=== PATIENT | male | born 1950 | race Two or more races ===

== ENCOUNTER → 2017-03-20 | Outpatient (CLI) | payer SELFPAY ==
--- NOTE | 2017-03-20 13:17 | RAD ---
Indication: Solitary pulmonary nodule. Technique: PET/CT utilized 12.97 millicuries F-18 FDG IV. Patient's blood glucose level at the time of exam was [address] was obtained for attenuation correction and correlative purposes, is not intended for interpretation separate from the PET imaging. There are no prior studies available at this institution. One or more of the following individualized dose reduction techniques were utilized for this examination: 1. Automated exposure control 2. Adjustment of the mA and/or kV according to patient size 3. Use of iterative reconstruction technique Findings: Head and neck: There is no radiotracer accumulation in a pattern to suggest metastatic disease. Chest: The mass posterior to the right hilum is PET avid with SUV max 19.8. No pattern avid adenopathy within the lainey or mediastinum is apparent. Abdomen/pelvis: There is no radiotracer accumulation in a pattern to suggest metastatic disease. Musculoskeletal: There is no radiotracer accumulation in a pattern to suggest metastatic disease. Subtle nonspecific uptake is noted in the right chest wall posteriorly with SUV max of only 1.6, barely above background. Non-PET findings: There are some mildly prominent right paratracheal lymph nodes that are all subcentimeter short axis. These were not PET avid. There is atheromatous disease in the aorta. Aorta is aneurysmal at the level of the diaphragm, 4.6 cm AP. There are diverticula in the colon. Prostate is enlarged. There are degenerative changes in the spine. There are coronary artery calcifications. Impression: Right lung mass posterior to the hilum is PET avid and most compatible with primary bronchogenic carcinoma. There is no evidence of hilar or mediastinal PET avid adenopathy. There is no evidence of distant metastatic disease.
== END | disposition home or self-care (01) ==
LOC: PETSC 10:06
PROVIDERS: ATTEND Internal Medicine Pulmonary Disease
DX: N40.0 Benign prostatic hyperplasia without lower urinary tract symptoms (principal); K57.30 Diverticulosis of large intestine without perforation or abscess without bleeding; I72.8 Aneurysm of other specified arteries; I70.0 Atherosclerosis of aorta; E78.2 Mixed hyperlipidemia; E11.9 Type 2 diabetes mellitus without complications; R91.1 Solitary pulmonary nodule
CPT/HCPCS: 78815; A9552

== ENCOUNTER → 2017-07-23 | Outpatient (CLI) | payer SELFPAY | END | disposition home or self-care (01) | LOC: CT 09:21 | DX: C34.31 Malignant neoplasm of lower lobe, right bronchus or lung (principal); E11.9 Type 2 diabetes mellitus without complications; E78.2 Mixed hyperlipidemia | CPT/HCPCS: 71250 ==

== ENCOUNTER → 2017-10-21 | Outpatient (CLI) | payer MEDICAID, MEDICARE ==
[2017-10-21] MEDS: REGADENOSON 0.4 MG/5 ML DISP.SYRIN. IV (09:00)
== END | disposition home or self-care (01) ==
LOC: ECHO 08:07
DX: R06.09 Other forms of dyspnea (principal); J43.9 Emphysema, unspecified; I10 Essential (primary) hypertension; E78.5 Hyperlipidemia, unspecified; E11.9 Type 2 diabetes mellitus without complications; Z87.891 Personal history of nicotine dependence
CPT/HCPCS: 78452; 93017; 93306; 96374; 96375; 96376; A9500; J2785

== ENCOUNTER → 2017-11-27 | Outpatient (CLI) | payer MEDICAID ==
[2017-04-10 15:21] VITALS: BP 106/74
[~2017-11-27] MED LIST: BUDE10.2 IH; PROAIR HFA8.5 GM INH
--- NOTE | 2017-11-27 09:40 | RAD ---
CT of the chest without contrast, 11/27/2017: HISTORY: Follow-up lung cancer Noncontrast scans were obtained and compared to a study from 07/23/2017. There is a small residual density in the medial aspect of the right lower lobe along the posterior aspect of the right hilum which appears unchanged. There are adjacent residual streaky opacities similar similar to on the previous study. Mild peripheral infiltrates in the posterior aspect of the right lower lobe have increased slightly. Emphysematous changes are present in the lungs with scattered pleural/parenchymal scars. A tiny subpleural nodule in the lateral aspect of the right middle lobe is unchanged. Several small mediastinal lymph nodes appear unchanged. The largest of these measure approximately 8 mm in short axis dimension and are not considered to be pathologically enlarged. Moderate scattered coronary artery calcifications are present. There is no evidence of pleural fluid. There is aneurysmal dilatation of the lower thoracic aorta which measures 4.8 x 4.5 cm just superior to the level the diaphragmatic hiatus. This is unchanged since the 07/23/2017 exam. Mild scattered degenerative changes are present in the spine. There is mild unchanged loss of height of a midthoracic vertebral body. IMPRESSION: 1. Stable small residual density along the posterior aspect of the right hilum at the level of the patient's treated lung malignancy. 2. Peripheral infiltrates posteriorly in the right lower lobe have progressed slightly and may represent inflammation or post radiation change. 3. Stable small mediastinal lymph nodes without pathologic enlargement. 4. Emphysema with pleural/parenchymal scarring. 5. Moderate coronary artery calcifications. 6. Stable lower thoracic aortic aneurysm. PQRS Compliance Statement: One or more of the following individualized dose reduction techniques were utilized for this examination: 1. Automated exposure control 2. Adjustment of the mA and/or kV according to patient size 3. Use of iterative reconstruction technique Electronically signed by: Sudhir Velazquez MD (11/27/2017 9:37 AM) [facility]
== END | disposition home or self-care (01) ==
LOC: CT 09:10
PROVIDERS: ATTEND Radiology Radiation Oncology
DX: J43.9 Emphysema, unspecified (principal); I25.10 Atherosclerotic heart disease of native coronary artery without angina pectoris; C34.31 Malignant neoplasm of lower lobe, right bronchus or lung; E78.2 Mixed hyperlipidemia; I10 Essential (primary) hypertension; E11.9 Type 2 diabetes mellitus without complications; Z87.891 Personal history of nicotine dependence
CPT/HCPCS: 71250

== ENCOUNTER → 2018-03-05 | Outpatient (CLI) | payer MEDICAID ==
[2017-04-10 15:21] VITALS: BP 106/74
--- NOTE | 2018-03-05 09:07 | RAD ---
CT of the chest without contrast, 03/05/2018: HISTORY: Follow-up lung cancer Noncontrast scans were obtained as requested and compared to a study from 11/27/2017. Several small mediastinal lymph nodes appear unchanged, measuring just less than 1 cm in short axis dimension. Moderate coronary artery calcifications are again noted. There is unchanged aneurysmal dilatation of the lower thoracic aorta near the diaphragmatic hiatus. The aorta measures approximately 4.8 cm in AP dimension at that level. Streaky parenchymal densities and peribronchovascular thickening along the posterior aspect of the right hilum as increased slightly. Peripheral infiltrate posteriorly in the right lower lobe has also increased. The previously treated lung malignancy cannot be clearly defined within these opacities. Emphysematous changes are present in the lungs. There are scattered bilateral pleural-parenchymal scars. A tiny subpleural nodule in the lateral aspect of the right middle lobe is unchanged. No new left lung abnormality is seen. There is no evidence of pleural fluid. IMPRESSION: 1. Increasing peribronchovascular densities and infiltrate along the posterior aspect of the right hilum in the right lower lobe may represent post radiation change. A component of residual underlying neoplasm cannot be excluded. 2. Stable small mediastinal lymph nodes without pathologic enlargement. 3. Stable lower thoracic aortic aneurysm. PQRS Compliance Statement: One or more of the following individualized dose reduction techniques were utilized for this examination: 1. Automated exposure control 2. Adjustment of the mA and/or kV according to patient size 3. Use of iterative reconstruction technique Electronically signed by: Sudhir Velazquez MD (03/05/2018 9:04 AM) [facility]
== END | disposition home or self-care (01) ==
LOC: CT 08:34
PROVIDERS: ATTEND Radiology Radiation Oncology
DX: C34.31 Malignant neoplasm of lower lobe, right bronchus or lung (principal); I71.2 Thoracic aortic aneurysm, without rupture; J43.9 Emphysema, unspecified
CPT/HCPCS: 71250

== ENCOUNTER 2018-04-01 12:21 | Emergency (ER) | payer MEDICAID ==
[~2018-04-01] VITALS: Ht 175.3 cm; Wt 74.8 kg
[~2018-04-01 12:21] MED LIST changes: +ALBU2.5V8 INH; -PROAIR HFA8.5 GM INH
[2018-04-01 12:50] LABS: BASO % 0 % (0-3); EOS % 0 % (0-3); HEMATOCRIT 48.7 % (39.0-53.0); HEMOGLOBIN 16.6 g/dL (13.0-17.5); LYMPH # 1.1 x10^3/uL (1.0-4.8); LYMPH % 15 % (24-48); MEAN CORPUSCULAR HEMOGLOBIN 30 pg (25-35); MEAN CORPUSCULAR HGB CONC 34 g/dL (31-37); MEAN CORPUSCULAR VOLUME 88 fL (79-100); MONO # 0.2 x10^3/uL (0.0-1.1); MONO % 2 % (0-9); NEUT # 6.1 x10^3uL (1.8-7.7); NEUT % 83 % (31-73); PLATELET COUNT 270 x10^3/uL (140-400); RED BLOOD COUNT 5.55 x10^6/uL (4.30-5.70); RED CELL DISTRIBUTION WIDTH 13.3 % (11.5-14.5); WHITE BLOOD COUNT 7.4 x10^3/uL (4.0-11.0)
--- NOTE | 2018-04-01 12:58 | RAD ---
CHEST PA LATERAL History: SHORTNESS OF AIR X 5-6 DAYS
RADIATION TREATMENT FOR RIGHT SIDED LUNG CANCER 8 MONTHS AGO. Comparison: April 09, 2017 image but no report available. Comparison with CT chest 03/05/2018. The cardiac silhouette is not enlarged. There is some abnormal opacity in the right lung, corresponds with the mass or consolidation seen on the CT scan. Mild right side pleural thickening. No large effusion. There does appear to be air trapping compatible with emphysema. Mild anterior wedging of mid thoracic vertebrae appears similar to the prior CT. There is some mild density in the overlying both lower lungs, thought to be due to breast tissue. No evidence of pneumothorax. IMPRESSION: Right lung opacity, likely corresponds with the mass/consolidation seen on the CT chest exam. Electronically signed by: Asaf Siddiqi MD (04/01/2018 12:54 PM) [facility]
[2018-04-01] MEDS ORDERED: IPRATRPIUM/ALBUTEROL 0.5/2.5MG 3 ML NEBU. NEB ONE (13:00)
[2018-04-01 13:05] LABS: CALCIUM 9.2 mg/dL (8.5-10.1); CREATININE 0.9 mg/dL (0.7-1.3); GFR 83.9; POTASSIUM 3.9 mmol/L (3.5-5.1)
[2018-04-01 13:16] LABS: ALBUMIN 3.8 g/dL (3.4-5.0); ALBUMIN/GLOBULIN RATIO 0.9 (1.0-1.7); TOTAL BILIRUBIN 0.6 mg/dL (0.2-1.0); TOTAL PROTEIN 8.2 g/dL (6.4-8.2)
[2018-04-01] MEDS ORDERED: IOHEXOL 300 MG/ML 100ML VIAL. IV ONE (13:30)
[2018-04-01] MEDS ORDERED: CONTRAST GIVEN. MC PRN (13:30)
--- NOTE | 2018-04-01 13:49 | EKG ---
[facility] [address] [place] [address] Test Date: 2018-04-01 Test Time: 12:27:58 Pat Name: ANTONI LINDER Department: Room: Gender: M Handyperson: : 1950 Requested By: BRENDA GUEVARA Order Number: [id number] Reading MD: Rigoberto Zhou Measurements Intervals [place] Rate: 93 P: 42 ND: 166 QRS: 0 QRSD: 88 T: 61 QT: 352 QTc: 440 Interpretive Statements SINUS RHYTHM LEFTWARD AXIS OTHERWISE NORMAL ECG Compared to ECG 04/09/2017 12:27:35 No significant changes Electronically Signed On 04-08-2018 11:05:44 MD OPHTHALMOLOGIST by Rigoberto Zhou
--- NOTE | 2018-04-01 14:09 | RAD ---
Examination: CT ANGIOGRAPHY CHEST History: shortness of breath, cough
Omni 300 90ml, no priors, lung cancer Comparison/Correlation: CT chest without contrast 03/05/2018 Findings: Axial images of chest were obtained following IV contrast according to pulmonary arteriography protocol. Sagittal and coronal reformatted images were provided. MIP images were provided. Severe centrilobular emphysema is noted. Atelectatic consolidation at the posterior right mid thoracic level is noted to extend to the pleura similar to prior exam and may relate to radiation therapy. No pneumothorax. Minimal linear atelectasis at the costophrenic sulci noted. No pulmonary arterial thromboembolic disease although evaluation may be limited region of posterior right mid thoracic atelectatic consolidation. No enlarged thoracic lymph nodes. There is a saccular aneurysm at the distal thoracic aorta anteriorly and this measures 3.7 cm longitudinal by 1.6 cm anteroposterior by 4.5 cm transverse. Partial thrombus involvement noted. Impression: No pulmonary arterial thrombus embolic disease although evaluation may be limited at the posterior right mid thoracic atelectatic consolidation which has been stable since the prior exam. Severe centrilobular emphysema. Stable distal thoracic aortic aneurysm. Electronically signed by: Taye Mcdonald MD (04/01/2018 2:05 PM) [id number]
[2018-04-01] MEDS ORDERED: ACETAMINOPHEN 325 MG TABLET. PO PRN (14:45)
[2018-04-01] MEDS ORDERED: ONDANSETRON PF 4 MG/2 ML VIAL. IV PRN (14:45)
[2018-04-01] MEDS ORDERED: IV NORMAL SALINE 1000ML BAG 1,000 ML IV SCH (15:00)
--- NOTE | 2018-04-01 15:54 | PHYS DOC ---
Past Medical History Past Medical History: Cancer Additional Past Medical Histor: LUNG CANCER Alcohol Use: None Drug Use: None Adult General Chief Complaint Chief Complaint: SHORTNESS OF BREATH HPI HPI Patient is a 67 year old male who presents with a low O2 saturation and exercise intolerance. The patient does have lung cancer. He had a lobectomy and had his imaging has been stable as of February with radiation therapy. He states that he started having some shortness of breath approximately 3 days ago. His retinal surgeon prescribed him doxycycline and prednisone. He states that he has been taking the medication as prescribed but has had increased work of breathing. He has a productive cough with white sputum. Review of Systems Review of Systems Constitutional: Denies fever or chills [] Eyes: Denies change in visual acuity, redness, or eye pain [] HENT: Denies nasal congestion or sore throat [] Respiratory: See history of present illness Cardiovascular: No additional information not addressed in HPI [] GI: Denies abdominal pain, nausea, vomiting, bloody stools or diarrhea [] : Denies dysuria or hematuria [] Musculoskeletal: Denies back pain or joint pain [] Integument: Denies rash or skin lesions [] Neurologic: Denies headache, focal weakness or sensory changes [] Endocrine: Denies polyuria or polydipsia [] All other systems were reviewed and found to be within normal limits, except as documented in this note. Current Medications Current Medications Current Medications Medications (Trade) Dose Ordered Sig/Royal Start Time Stop Time Status Last Admin Dose Admin Albuterol/ Ipratropium (Duoneb) 3 ml 1X ONCE 04/01/18 13:00 04/01/18 13:01 DC 04/01/18 12:57 3 ML Info (CONTRAST GIVEN -- Rx MONITORING) 1 each PRN DAILY PRN 04/01/18 13:30 04/01/18 16:34 DC Iohexol (Omnipaque 300 Mg/ml) 90 ml 1X ONCE 04/01/18 13:30 04/01/18 13:31 DC 04/01/18 13:38 90 ML Allergies Allergies Allergies Coded Allergies Type Severity Reaction Last Updated Verified No Known Allergies Allergy Unknown 04/09/17 Yes Physical Exam Physical Exam Constitutional: Well developed, well nourished, no acute distress, non-toxic appearance. [] HENT: Normocephalic, atraumatic, bilateral external ears normal, oropharynx moist, no oral exudates, nose normal. [] Eyes: PERRLA, EOMI, conjunctiva normal, no discharge. [] Neck: Normal range of motion, no tenderness, supple, no stridor. [] Cardiovascular:Heart rate regular rhythm, no murmur [] Lungs & Thorax: Bilateral breath sounds decreased throughout, harsh wet cough noted Abdomen: Bowel sounds normal, soft, no tenderness, no masses, no pulsatile masses. [] Skin: Warm, dry, no erythema, no rash. [] Back: No tenderness, no CVA tenderness. [] Extremities: No tenderness, no cyanosis, no clubbing, ROM intact, no edema. [] Neurologic: Alert and oriented X 3, normal motor function, normal sensory function, no focal deficits noted. [] Psychologic: Affect normal, judgement normal, mood normal. [] Current Patient Data Vital Signs Vital Signs Date Time Temp Pulse Resp B/P (MAP) Pulse Ox O2 Delivery O2 Flow Rate FiO2 04/01/18 12:59 91 Room Air 04/01/18 12:37 98.4 92 16 155/79 (104) 98.4 Lab Values Laboratory Tests Test 04/01/18 12:40 White Blood Count 7.4 x10^3/uL (4.0-11.0) Red Blood Count 5.55 x10^6/uL (4.30-5.70) Hemoglobin 16.6 g/dL (13.0-17.5) Hematocrit 48.7 % (39.0-53.0) Mean Corpuscular Volume 88 fL (79-100) Mean Corpuscular Hemoglobin 30 pg (25-35) Mean Corpuscular Hemoglobin Concent 34 g/dL (31-37) Red Cell Distribution Width 13.3 % (11.5-14.5) Platelet Count 270 x10^3/uL (140-400) Neutrophils (%) (Auto) 83 % (31-73) H Lymphocytes (%) (Auto) 15 % (24-48) L Monocytes (%) (Auto) 2 % (0-9) Eosinophils (%) (Auto) 0 % (0-3) Basophils (%) (Auto) 0 % (0-3) Neutrophils # (Auto) 6.1 x10^3uL (1.8-7.7) Lymphocytes # (Auto) 1.1 x10^3/uL (1.0-4.8) Monocytes # (Auto) 0.2 x10^3/uL (0.0-1.1) Eosinophils # (Auto) 0.0 x10^3/uL (0.0-0.7) Basophils # (Auto) 0.0 x10^3/uL (0.0-0.2) Sodium Level 142 mmol/L (136-145) Potassium Level 3.9 mmol/L (3.5-5.1) Chloride Level 103 mmol/L (98-107) Carbon Dioxide Level 30 mmol/L (21-32) Anion Gap 9 (6-14) Blood Urea Nitrogen 21 mg/dL (8-26) Creatinine 0.9 mg/dL (0.7-1.3) Estimated GFR (Cockcroft-Gault) 83.9 BUN/Creatinine Ratio 23 (6-20) H Glucose Level 132 mg/dL (70-99) H Calcium Level 9.2 mg/dL (8.5-10.1) Total Bilirubin 0.6 mg/dL (0.2-1.0) Aspartate Amino Transferase (AST) 19 U/L (15-37) Alanine Aminotransferase (ALT) 35 U/L (16-63) Alkaline Phosphatase 129 U/L (46-116) H Total Protein 8.2 g/dL (6.4-8.2) Albumin 3.8 g/dL (3.4-5.0) Albumin/Globulin Ratio 0.9 (1.0-1.7) L Laboratory Tests 04/01/18 12:40 Laboratory Tests 04/01/18 12:40 EKG EKG [] Radiology/Procedures Radiology/Procedures []Signed PATIENT: ANTONI LINDER ACCOUNT: [id number] : 1950 LOCATION: ER AGE: 67 SEX: M EXAM STATUS: REG ER ORD. PHYSICIAN: BRENDA GUEVARA APRN REASON: SOA PROCEDURE: CT ANGIOGRAPHY CHEST Examination: CT ANGIOGRAPHY CHEST History: shortness of breath, cough
Omni 300 90ml, no priors, lung cancer Comparison/Correlation: CT chest without contrast 03/05/2018 Findings: Axial images of chest were obtained following IV contrast according to pulmonary arteriography protocol. Sagittal and coronal reformatted images were provided. MIP images were provided. Severe centrilobular emphysema is noted. Atelectatic consolidation at the posterior right mid thoracic level is noted to extend to the pleura similar to prior exam and may relate to radiation therapy. No pneumothorax. Minimal linear atelectasis at the costophrenic sulci noted. No pulmonary arterial thromboembolic disease although evaluation may be limited region of posterior right mid thoracic atelectatic consolidation. No enlarged thoracic lymph nodes. There is a saccular aneurysm at the distal thoracic aorta anteriorly and this measures 3.7 cm longitudinal by 1.6 cm anteroposterior by 4.5 cm transverse. Partial thrombus involvement noted. Impression: No pulmonary arterial thrombus embolic disease although evaluation may be limited at the posterior right mid thoracic atelectatic consolidation which has been stable since the prior exam. Severe centrilobular emphysema. Stable distal thoracic aortic aneurysm. Electronically signed by: Taye Mcdonald MD (04/01/2018 2:05 PM) [id number] DICTATED and SIGNED BY: RORO OJEDA MD DATE: 04/01/18 1355 PATIENT: ANTONI LINDER ACCOUNT: [id number] : 1950 LOCATION: ER AGE: 67 SEX: M EXAM STATUS: PRE ER ORD. PHYSICIAN: BRENDA GUEVARA APRN REASON: soa PROCEDURE: CHEST PA & LATERAL CHEST PA LATERAL History: SHORTNESS OF AIR X 5-6 DAYS
RADIATION TREATMENT FOR RIGHT SIDED LUNG CANCER 8 MONTHS AGO. Comparison: April 09, 2017 image but no report available. Comparison with CT chest 03/05/2018. The cardiac silhouette is not enlarged. There is some abnormal opacity in the right lung, corresponds with the mass or consolidation seen on the CT scan. Mild right side pleural thickening. No large effusion. There does appear to be air trapping compatible with emphysema. Mild anterior wedging of mid thoracic vertebrae appears similar to the prior CT. There is some mild density in the overlying both lower lungs, thought to be due to breast tissue. No evidence of pneumothorax. IMPRESSION: Right lung opacity, likely corresponds with the mass/consolidation seen on the CT chest exam. Electronically signed by: Asaf Siddiqi MD (04/01/2018 12:54 PM) [facility] DICTATED and SIGNED BY: ASAF SIDDIQI MD DATE: 04/01/18 1250 Course & Med Decision Making Course & Med Decision Making Pertinent Labs and Imaging studies reviewed. (See chart for details) []The patient was originally going to be admitted to Dr. Cid's service, but Dr. Briones called and offered to arrange for the patient have at home oxygen therapy. The patient is in agreement with this plan. He will leave the emergency department and go directly to Dr. Briones's office via wheelchair. He is to continue his at home medications. The patient is in agreement with this plan. Staff Physician Addendum: I was working in the ER during the course of this patient's visit. I was available for consultation as needed, but I was not directly involved in the care of this patient. Dragon Disclaimer Dragon Disclaimer This electronic medical record was generated, in whole or in part, using a voice recognition dictation system. Departure Departure Impression: Primary Impression: Shortness of breath Additional Impression: Exercise intolerance Disposition: HOME, SELF-CARE Condition: STABLE Referrals: GALINA WELLS MD (PCP) Patient Instructions: Shortness of Breath Additional Instructions: Follow-up with Dr. Briones today to arrange for at home oxygen therapy. Take your home medications as directed. Problem Qualifiers BRENDA GUEVARA APRN Apr 01, 2018 15:54 TAL MASSEY MD Apr 02, 2018 12:41
[2018-04-01] MEDS ORDERED: IPRATRPIUM/ALBUTEROL 0.5/2.5MG 3 ML NEBU. NEB SCH (16:00)
[2018-04-01 16:14] VITALS: BP 123/89
== END 2018-04-01 16:19 | disposition home or self-care (01) ==
LOC: ER 12:21 → UNDOADMIN 14:26 → 6 SOUTH 14:26 → ER 16:19
DX: R06.02 Shortness of breath (principal); R68.89 Other general symptoms and signs; J43.2 Centrilobular emphysema; I71.2 Thoracic aortic aneurysm, without rupture; Z85.118 Personal history of other malignant neoplasm of bronchus and lung
CPT/HCPCS: 36415; 71046; 71275; 80053; 85025; 93005; 94640; 99284; J7620; Q9967; J2405; J7030

== ENCOUNTER → 2018-05-27 | Outpatient (CLI) | payer MEDICAID ==
[2018-05-27 14:35] LABS: BASE EXCESS ABG 3 mmol/L (-3-3); HCO3 ABG 27 mmol/L (21-28); PCO2 ABG 40 mmHg (35-46); PO2 ABG 61 mmHg (65-108); SAT O2 ABG 93 % (92-99)
[2018-05-27 14:37] LABS: FIO2 ABG 21
== END | disposition home or self-care (01) ==
LOC: RT 14:11
PROVIDERS: ATTEND Internal Medicine Pulmonary Disease
DX: J44.1 Chronic obstructive pulmonary disease with (acute) exacerbation (principal)
CPT/HCPCS: 36600; 82805

== ENCOUNTER → 2018-06-09 | Outpatient (CLI) | payer MEDICAID ==
--- NOTE | 2018-06-09 09:05 | RAD ---
EXAM: CT Chest without IV contrast CLINICAL HISTORY: LUNG CA, 3 MO F/U TREATMENT COMPARISON: 04/01/2018, 03/05/2018 TECHNIQUE: CT of the chest without intravenous contrast. Axial, coronal and sagittal reformatted images were generated. ---PQRS compliance statement - One or more of the following individualized dose reduction techniques were utilized for this study: 1. Automated exposure control 2. Adjustment of the mA and/or kV according to patient size 3. Use of iterative reconstruction technique--- FINDINGS: Lack of intravenous contrast limits evaluation of solid organs, vasculature, and lymph nodes. Chest: The heart is not enlarged. No pericardial effusion. Coronary artery calcifications are seen. Evaluation for mediastinal and hilar lymphadenopathy is limited on this noncontrast exam. Prominent mediastinal lymph nodes are seen, in general measuring <1 cm in short axis, stable. No axillary lymphadenopathy. Bilateral emphysematous changes are seen. Dense opacification in the medial right lower lobe superiorly is now seen, previously with more linear and reticular. This may be related to evolving fibrosis/post therapeutic change. Evaluation for obstructing mass is limited on this noncontrast exam. Distal descending thoracic aortic aneurysm is again seen, grossly stable in size. No pleural effusion or pneumothorax. Mild pleural thickening overlying the posterior right lower lobe. Visualized Upper abdomen: High density material dependently within the gallbladder likely sludge. Bones: Multilevel degenerative changes of the spine are seen. IMPRESSION: 1. Dense opacification posterior medial right lower lobe which is previously linear reticular, suggesting evolving fibrosis/post therapeutic change. However recommend close attention on follow-up to exclude developing mass as evaluation is limited on this noncontrast exam. 2. Bilateral emphysematous changes are seen. 3. No lymphadenopathy by size criteria. Electronically signed by: Milind Finnegan MD (06/09/2018 9:02 AM) [facility]
== END | disposition home or self-care (01) ==
LOC: CT 08:08
PROVIDERS: ATTEND Radiology Radiation Oncology
DX: Z08 Encounter for follow-up examination after completed treatment for malignant neoplasm (principal); J43.9 Emphysema, unspecified; I71.2 Thoracic aortic aneurysm, without rupture; I25.10 Atherosclerotic heart disease of native coronary artery without angina pectoris; R91.8 Other nonspecific abnormal finding of lung field; R59.0 Localized enlarged lymph nodes; Z85.118 Personal history of other malignant neoplasm of bronchus and lung
CPT/HCPCS: 71250

== ENCOUNTER → 2018-08-03 | Day surgery (SDC) | payer MEDICAID ==
[~2018-08-03] MED LIST changes: +ALBUTEROL SULFATE 2.5 MG/3 ML NEBU. NEB PRN; +EPINEPHrine 1 MG/ML VIAL INJ PRN; +IV RINGERS,LACTATED 1000ML 1,000 ML IV SCH; +LIDOCAINE 1% Multi-Dose 20 ML VIAL. INJ PRN; +LIDOCAINE 1% PF 2 ML VIAL. ID PRN; +LIDOCAINE 2% VISCOUS 100 ML BOTTLE. MM PRN; +LIDOCAINE 4% TOPICAL 50 ML SOLUTION. MM PRN; +MIDAZOLAM HCL/PF 2 MG/2 ML VIAL. IV PRN; +PROPOFOL 20 ML IV ONE; +fentaNYL PF VIAL 100 MCG/2 ML VIAL IV PRN
[2018-08-03 14:08] LABS: BASO % 0 % (0-3); EOS # 0.1 x10^3/uL (0.0-0.7); EOS % 1 % (0-3); HEMATOCRIT 47.3 % (39.0-53.0); HEMOGLOBIN 15.5 g/dL (13.0-17.5); LYMPH % 25 % (24-48); MEAN CORPUSCULAR HEMOGLOBIN 29 pg (25-35); MEAN CORPUSCULAR HGB CONC 33 g/dL (31-37); MEAN CORPUSCULAR VOLUME 89 fL (79-100); MONO # 0.8 x10^3/uL (0.0-1.1); MONO % 7 % (0-9); NEUT # 7.8 x10^3uL (1.8-7.7); NEUT % 66 % (31-73); PLATELET COUNT 272 x10^3/uL (140-400); RED BLOOD COUNT 5.34 x10^6/uL (4.30-5.70); RED CELL DISTRIBUTION WIDTH 13.7 % (11.5-14.5); WHITE BLOOD COUNT 11.8 x10^3/uL (4.0-11.0)
[2018-08-03 16:21] VITALS: BP 142/78
--- NOTE | 2018-08-03 20:02 | OP ---
DATE OF SURGERY: 08/03/2018 ATTENDING PHYSICIAN: Dr. Galina Wells. PROCEDURE: Bronchoscopy, bronchoalveolar lavage. INDICATIONS: The patient with a history of lung cancer, status post previous radiation, presented with hemoptysis, undergoing a diagnostic bronchoscopy. Risks, benefits, and alternatives reviewed with the patient. He consented. SEDATION: Please see Anesthesia notes. DESCRIPTION OF PROCEDURE: A timeout was performed prior to procedure. Vital signs and O2 saturation were maintained within normal limits throughout the procedure. The bronchoscope was passed through the left naris. The vocal cords were anesthetized moving bilaterally without any dysfunction. The vocal cords were anesthetized with a total 5 mL of 4% lidocaine. Bronchoscope was passed through the vocal cords into the proximal trachea, which was normal. The distal trachea was normal. The right and left segments and subsegments were visualized. There were no endobronchial lesions. There was no evidence of active bleeding. On the right side, the mucosa leading to the right lower lobe and right middle lobe was erythematous. Superficial blood vessels were easily identified. There was an area that appeared to be slightly ulcerated. IMPRESSION: 1. Normal vocal cords. 2. No endobronchial lesion. 3. Ulcerated lesion in the right lower lobe, possibly causing the hemoptysis. 4. Suspect acute bronchitis, leading to hemoptysis. 5. No evidence of recurrent cancer. GALINA WELLS MD DR: PARTH/barbra JOB#: [id number] / [id number]
--- NOTE | 2018-08-05 15:06 | PATHOLOGY ---
Note [facility] Accession Number: [id number] TESTS RESULT FLAG UNITS REF RANGE LAB Clinician Provided Cytology Information No. of containers..01 Other (Miscellaneous) Source: BAL RLL DIAGNOSIS: BAL RLL NEGATIVE FOR MALIGNANT CELLS. BRONCHIAL EPITHELIAL CELLS, FEW SQUAMOUS EPITHELIAL CELLS,AND PULMONARY MACROPHAGES ARE PRESENT. Signed out by: Luis Villegas MD, Pathologist NPI- [id number] Performed by: Bonnie Katz, Media Account Executive ([facility]) Gross description: 01 10ML, CLEAR, COLORLESS /LCS FLAG LEGEND: L-Low Normal,H-High Normal,LL-Alert Low,HH-Alert High <-Panic Low,>-Panic High,A-Abnormal,AA-Critical Abnormal Performed at: [address] [place] [address] Chris Kitchen MD, [address] [facility] [address] [place] [address] Luis Villegas MD, Specimen Comment: A courtesy copy of this report has been sent to Specimen Comment: [phone]. Specimen Comment: Report sent to Specimen Comment: A duplicate report has been generated due to demographic updates. Performed at: [address] [place] [address] [address], [place], [place] [id number] MD Chris Kitchen MD Phone: [phone]
== END | disposition home or self-care (01) ==
LOC: SURG 12:50
PROVIDERS: ATTEND Internal Medicine Pulmonary Disease
DX: R91.8 Other nonspecific abnormal finding of lung field (principal); R04.2 Hemoptysis; Z85.118 Personal history of other malignant neoplasm of bronchus and lung; J44.9 Chronic obstructive pulmonary disease, unspecified
CPT/HCPCS: 31624; 36415; 85025; 87070; 87205; 88112; 94640; J0171; J2704; 31622

== ENCOUNTER → 2019-05-11 | Outpatient (CLI) | payer MEDICAID ==
[2018-08-03 16:21] VITALS: BP 142/78
[~2019-05-11] MED LIST changes: -ALBUTEROL SULFATE 2.5 MG/3 ML NEBU. NEB PRN; -EPINEPHrine 1 MG/ML VIAL INJ PRN; -IV RINGERS,LACTATED 1000ML 1,000 ML IV SCH; -LIDOCAINE 1% Multi-Dose 20 ML VIAL. INJ PRN; -LIDOCAINE 1% PF 2 ML VIAL. ID PRN; -LIDOCAINE 2% VISCOUS 100 ML BOTTLE. MM PRN; -LIDOCAINE 4% TOPICAL 50 ML SOLUTION. MM PRN; -MIDAZOLAM HCL/PF 2 MG/2 ML VIAL. IV PRN; -PROPOFOL 20 ML IV ONE; -fentaNYL PF VIAL 100 MCG/2 ML VIAL IV PRN
--- NOTE | 2019-05-11 17:48 | RAD ---
CHEST PA LATERAL History: Shortness of breath, lung cancer Comparison: 04/01/2018 two-view chest x-ray exam. PET CT exam 01/24/2019. Findings: Frontal and lateral views of chest were obtained. The cardiomediastinal silhouette is normal. Pulmonary vasculature is normal. The lungs are clear. No pleural effusion or pneumothorax is seen. There is no acute bone abnormality. Pulmonary hyperinflation noted. Spiculation involving the right hilum is unchanged. Stent material along the course of the distal thoracic aorta noted. IMPRESSION: No acute cardiopulmonary process. The glenoid appearance of the right hilum again seen. No suggestion of mass development in the interval. Correlate with radiation therapy history. COPD. Electronically signed by: Taye Mcdonald MD (05/11/2019 5:45 PM) [id number]
== END | disposition home or self-care (01) ==
LOC: RAD 13:12
PROVIDERS: ATTEND Internal Medicine Pulmonary Disease
DX: C34.90 Malignant neoplasm of unspecified part of unspecified bronchus or lung (principal); J44.9 Chronic obstructive pulmonary disease, unspecified
CPT/HCPCS: 71046

== ENCOUNTER 2020-01-05 21:35 | Inpatient (IN) | payer MEDICARE, MEDICAID ==
[~2020-01-05] VITALS: Ht 172.7 cm; Wt 65.0 kg
[~2020-01-05 21:35] MED LIST changes: +ASPI-886 PO; +ATOR80TA72 PO; +HYDR50CA2 PO; +IPRA3AMP29 NEB; +LISI-338 PO; +METO-239 PO; +PRED20TA PO; +TICA90TA PO
[2020-01-05] MEDS ORDERED: IPRATRPIUM/ALBUTEROL 0.5/2.5MG 3 ML NEBU. NEB ONE (21:45)
[2020-01-05] MEDS ORDERED: methylPREDNISolone SOD SUCC PF 125 MG/2 ML VIAL. IV ONE (22:00)
[2020-01-05] MEDS ORDERED: IV NORMAL SALINE 1000ML BAG 1,000 ML IV ONE (22:00)
[2020-01-05] MEDS ORDERED: IPRATROPIUM/ALBUTEROL 20/100mcg/INH INHALER. INH ONE (22:00)
--- NOTE | 2020-01-05 22:05 | PHYS DOC ---
Past Medical History Past Medical History: Cancer, COPD, High Cholesterol Additional Past Medical Histor: LUNG CANCER Smoking Status: Current Every Day Smoker Alcohol Use: None Drug Use: None General Adult EDM: Chief Complaint: SHORTNESS OF BREATH HPI: HPI: The history was obtained from the patient and EMS. Patient is a 69-year-old male with PMH oxygen dependent COPD, CAD, lung cancer, hypertension who presents with a chief complaint of chest pain and shortness of breath. Patient states 1 hour prior to arrival he began developing sharp chest pain. He states it is made worse when he breathes in. He also notes associated shortness of breath. States he was diagnosed with coronavirus 9 days ago. States that he was also diagnosed with heart attack 2 months ago and had stents placed. States that he does require 2 to 3 L of oxygen at baseline. He states he uses his inhaler most daily. He notes he was recently prescribed doxycycline by his operating room surgical technician who works at our facility. He denies any syncope. Denies any objective fevers. States overall he is actually been feeling better but his shortness of breath became too severe tonight and was not relieved with his inhaler. Denies any swelling to the legs bilaterally. Has not missed any of his home medications. No other complaints. Review of Systems: Review of Systems: Constitutional: Denies fever or chills. [] Eyes: Denies change in visual acuity. [] HENT: Denies nasal congestion or sore throat. [] Respiratory: Positive shortness of breath Cardiovascular: Positive for chest pain GI: Denies abdominal pain, nausea, vomiting, bloody stools or diarrhea. [] : Denies dysuria. [] Musculoskeletal: Denies back pain or joint pain. [] Integument: Denies rash. [] Neurologic: Denies headache, focal weakness or sensory changes. [] Endocrine: Denies polyuria or polydipsia. [] Lymphatic: Denies swollen glands. [] Psychiatric: Denies depression or anxiety. [] Heart Score: Risk Factors: Risk Factors: DM, Current or recent (<one month) smoker, HTN, HLP, family history of CAD, obesity. Risk Scores: Score 0 - 3: 2.5% MACE over next 6 weeks - Discharge Home Score 4 - 6: 20.3% MACE over next 6 weeks - Admit for Clinical Observation Score 7 - 10: 72.7% MACE over next 6 weeks - Early Invasive Strategies Current Medications: Current Medications Medications (Trade) Dose Ordered Sig/Royal Start Time Stop Time Status Last Admin Dose Admin Albuterol/ Ipratropium (Combivent Respimat 20-100 Mcg) 1 puff 1X ONCE 01/05/20 22:00 01/05/20 22:01 DC Albuterol/ Ipratropium (Duoneb) 9 ml 1X ONCE 01/05/20 21:45 01/05/20 21:46 UNV Methylprednisolone Sodium Succinate (SOLU-Medrol 125MG VIAL) 125 mg 1X ONCE 01/05/20 22:00 01/05/20 22:01 DC Sodium Chloride 1,000 ml @ 2,000 mls/hr 1X ONCE 01/05/20 22:00 01/05/20 22:29 Allergies: Allergies: Allergies Coded Allergies Type Severity Reaction Last Updated Verified No Known Drug Allergies 06/04/19 No Physical Exam: PE: Constitutional: Well developed, well nourished, no acute distress, non-toxic appearance. [] HENT: Normocephalic, atraumatic, bilateral external ears normal, oropharynx moist, no oral exudates, nose normal. [] Eyes: PERRLA, EOMI, conjunctiva normal, no discharge. [] Neck: Normal range of motion, no tenderness, supple, no stridor. [] Cardiovascular: Tachycardic, rhythm, no murmur [] Lungs & Thorax: Tachypneic. Speaking in full sentences. 3 L nasal cannula in place. Expiratory wheezes appreciated. Minimal accessory muscle usage noted. Abdomen: soft, no tenderness, no masses, no pulsatile masses. [] Skin: Warm, dry, no erythema, no rash. [] Back: No tenderness, no CVA tenderness. [] Extremities: No tenderness, no cyanosis, no clubbing, ROM intact, no edema. [] Neurologic: Alert and oriented X 3, normal motor function, normal sensory function, no focal deficits noted. [] Psychologic: Affect normal, judgement normal, mood normal. [] Current Patient Data: Labs: Laboratory Tests Test 01/05/20 21:57 White Blood Count 10.2 x10^3/uL Red Blood Count 4.34 x10^6/uL Hemoglobin 12.3 g/dL Hematocrit 36.9 % Mean Corpuscular Volume 85 fL Mean Corpuscular Hemoglobin 28 pg Mean Corpuscular Hemoglobin Concent 33 g/dL Red Cell Distribution Width 14.3 % Platelet Count 235 x10^3/uL Neutrophils (%) (Auto) 81 % Lymphocytes (%) (Auto) 9 % Monocytes (%) (Auto) 8 % Eosinophils (%) (Auto) 1 % Basophils (%) (Auto) 1 % Neutrophils # (Auto) 8.3 x10^3/uL Lymphocytes # (Auto) 1.0 x10^3/uL Monocytes # (Auto) 0.8 x10^3/uL Eosinophils # (Auto) 0.1 x10^3/uL Basophils # (Auto) 0.0 x10^3/uL D-Dimer (Yazmin) 2.29 ug/mlFEU Sodium Level 134 mmol/L Potassium Level 4.1 mmol/L Chloride Level 101 mmol/L Carbon Dioxide Level 32 mmol/L Anion Gap 1 Blood Urea Nitrogen 24 mg/dL Creatinine 0.9 mg/dL Estimated GFR (Cockcroft-Gault) 83.4 Glucose Level 107 mg/dL Calcium Level 8.7 mg/dL Magnesium Level 2.3 mg/dL Ferritin 221 ng/mL Lactate Dehydrogenase 220 U/L Troponin I Quantitative < 0.017 ng/mL [id number] Natriuretic Peptide 276 pg/mL Current Medications Medications (Trade) Dose Ordered Sig/Royal Route PRN Reason Start Time Stop Time Status Last Admin Dose Admin Albuterol/ Ipratropium (Duoneb) 9 ml 1X ONCE NEB 01/05/20 21:45 01/05/20 21:46 UNV Methylprednisolone Sodium Succinate (SOLU-Medrol 125MG VIAL) 125 mg 1X ONCE IV 01/05/20 22:00 01/05/20 22:01 DC 01/05/20 22:30 Sodium Chloride 1,000 ml @ 2,000 mls/hr 1X ONCE IV 01/05/20 22:00 01/05/20 22:29 DC 01/05/20 22:31 Albuterol/ Ipratropium (Combivent Respimat 20-100 Mcg) 1 puff 1X ONCE INH 01/05/20 22:00 01/05/20 22:01 DC 01/05/20 22:29 Fentanyl Citrate (Fentanyl 2ml Vial) 50 mcg 1X ONCE IVP 01/05/20 22:15 01/05/20 22:16 DC 01/05/20 22:30 Iohexol (Omnipaque 350 Mg/ml) 100 ml 1X ONCE IV 01/05/20 23:00 01/05/20 23:01 DC Info (CONTRAST GIVEN -- Rx MONITORING) 1 each PRN DAILY PRN MC SEE COMMENTS 01/05/20 23:00 01/07/20 22:59 Lorazepam (Ativan) 1 mg 1X ONCE PO 01/06/20 00:00 01/06/20 00:01 UNV Vital Signs: Vital Signs Date Time Temp Pulse Resp B/P (MAP) Pulse Ox O2 Delivery O2 Flow Rate FiO2 01/05/20 22:58 99 BiPAP/CPAP 01/05/20 22:30 34 93 Nasal Cannula 4.0 EKG: EKG: [] EKG consistent with sinus tachycardia. Ventricular rate of 123 bpm. Left axis noted. Enlarged P waves present. Pulmonary pattern appreciated. No acute ST segment elevation noted. Radiology/Procedures: Radiology/Procedures: [facility] [address] [place] [address] IMAGING REPORT Signed PATIENT: LUIS LINDERCCOUNT: [id number] : 1950 LOCATION: ER AGE: 69 SEX: M EXAM STATUS: REG ER ORD. PHYSICIAN: YARELIS HOWARD DO REASON: SOB PROCEDURE: CHEST AP ONLY Exam: Chest one view INDICATION: Shortness of breath TECHNIQUE: Frontal view of the chest Comparisons: 06/03/2019 FINDINGS: The cardiomediastinal silhouette and pulmonary vessels are within normal limits. Stable spiculated appearance of the right hilum. No pleural effusion. Increased opacity at the right apex. IMPRESSION: Stable posttreatment changes at the lainey. Increased opacity of the right apex, recommend further evaluation with CT. Electronically signed by: Romaine Zhang MD (01/05/2020 10:51 PM) [id number] DICTATED and SIGNED BY: ROMAINE ZHANG MD DATE: 01/05/20 2251 [] Course & Med Decision Making: Course & Med Decision Making Pertinent Labs and Imaging studies reviewed. (See chart for details) [] Patient is a 69-year-old male who presents with chief complaint of shortness of breath and chest pain. Initial vital signs notable for tachycardia. Patient does show signs of increased work of breathing. BiPAP was initiated. Symbicort inhaler treatments were administered given his history of positive COVID status. D-dimer was obtained to assess for the severity of COVID. This is mildly elevated. CT PE study was attempted to be obtained however the patient's IV was malfunctioning. He may require VQ scan at some point however I do feel his shortness of breath is most likely due to COPD exacerbation versus COVID. Remainder of labs been unremarkable. Patient will require hospitalization for further care. He was given 125 mg IV Solu-Medrol. No signs of bacterial consolidation on chest x-ray imaging. Antibiotics will be deferred at this time. Dragon Disclaimer: Dragon Disclaimer: This electronic medical record was generated, in whole or in part, using a voice recognition dictation system. Departure Departure Impression: Primary Impression: COPD exacerbation Additional Impressions: Acute on chronic respiratory failure with hypoxia COVID-19 Disposition: ADMITTED INPATIENT Condition: STABLE Referrals: GALINA WELLS MD (PCP) Justicifation of Admission Dx: Justifications for Admission: Justification of Admission Dx: Yes Respiratory Failure: Severe Resp Distress YARELIS HOWARD DO Jan 05, 2020 22:05
[2020-01-05 22:13] LABS: BASO % 1 % (0-3); EOS # 0.1 x10^3/uL (0.0-0.7); EOS % 1 % (0-3); HEMATOCRIT 36.9 % (39.0-53.0); HEMOGLOBIN 12.3 g/dL (13.0-17.5); LYMPH % 9 % (24-48); MEAN CORPUSCULAR HEMOGLOBIN 28 pg (25-35); MEAN CORPUSCULAR HGB CONC 33 g/dL (31-37); MEAN CORPUSCULAR VOLUME 85 fL (79-100); MONO # 0.8 x10^3/uL (0.0-1.1); MONO % 8 % (0-9); NEUT # 8.3 x10^3/uL (1.8-7.7); NEUT % 81 % (31-73); PLATELET COUNT 235 x10^3/uL (140-400); RED BLOOD COUNT 4.34 x10^6/uL (4.30-5.70); RED CELL DISTRIBUTION WIDTH 14.3 % (11.5-14.5); WHITE BLOOD COUNT 10.2 x10^3/uL (4.0-11.0)
[2020-01-05] MEDS ORDERED: fentaNYL PF VIAL 100 MCG/2 ML VIAL IVP ONE (22:15)
[2020-01-05 22:28] LABS: CALCIUM 8.7 mg/dL (8.5-10.1); CREATININE 0.9 mg/dL (0.7-1.3); GFR 83.4; POTASSIUM 4.1 mmol/L (3.5-5.1)
[2020-01-05 22:45] LABS: MAGNESIUM 2.3 mg/dL (1.8-2.4)
--- NOTE | 2020-01-05 22:54 | RAD ---
Exam: Chest one view INDICATION: Shortness of breath TECHNIQUE: Frontal view of the chest Comparisons: 06/03/2019 FINDINGS: The cardiomediastinal silhouette and pulmonary vessels are within normal limits. Stable spiculated appearance of the right hilum. No pleural effusion. Increased opacity at the right apex. IMPRESSION: Stable posttreatment changes at the lainey. Increased opacity of the right apex, recommend further evaluation with CT. Electronically signed by: Romaine Villasenor MD (01/05/2020 10:51 PM) [id number]
[2020-01-05] MEDS ORDERED: CONTRAST GIVEN. MC PRN (23:00)
[2020-01-05] MEDS ORDERED: IOHEXOL 350 MG/ML 100 ML VIAL. IV ONE (23:00)
[2020-01-06 03:31] LABS: BASO % 0 % (0-3); EOS % 0 % (0-3); HEMATOCRIT 35.2 % (39.0-53.0); HEMOGLOBIN 11.8 g/dL (13.0-17.5); LYMPH # 0.3 x10^3/uL (1.0-4.8); LYMPH % 2 % (24-48); MEAN CORPUSCULAR HEMOGLOBIN 29 pg (25-35); MEAN CORPUSCULAR HGB CONC 34 g/dL (31-37); MEAN CORPUSCULAR VOLUME 85 fL (79-100); MONO # 0.2 x10^3/uL (0.0-1.1); MONO % 2 % (0-9); NEUT # 13.8 x10^3/uL (1.8-7.7); NEUT % 96 % (31-73); PLATELET COUNT 215 x10^3/uL (140-400); RED BLOOD COUNT 4.14 x10^6/uL (4.30-5.70); RED CELL DISTRIBUTION WIDTH 14.2 % (11.5-14.5); WHITE BLOOD COUNT 14.4 x10^3/uL (4.0-11.0)
[2020-01-06 03:47] LABS: CALCIUM 8.5 mg/dL (8.5-10.1); CREATININE 0.9 mg/dL (0.7-1.3); GFR 83.4; POTASSIUM 4.1 mmol/L (3.5-5.1)
[2020-01-06 03:51] VITALS: BP 113/74
[2020-01-06 06:04] LABS: % BANDS 8 % (0-9); % LYMPHS 3 % (24-48); % MONOS 1 % (0-10); % SEGS 88 % (35-66); PLT ESTIMATE ADEQUATE (ADEQUATE)
[2020-01-06] MEDS ORDERED: METO-239 PO (07:10)
[2020-01-06] MEDS ORDERED: PANT20TA2 PO (07:10)
[2020-01-06] MEDS ORDERED: NITR0.4T22 SL (07:10)
[2020-01-06] MEDS ORDERED: LISI-338 PO (07:10)
[2020-01-06] MEDS ORDERED: FLUT9.9S NS (07:10)
[2020-01-06 07:15] VITALS: BP 103/67
[2020-01-06] MEDS ORDERED: ACETAMINOPHEN 325 MG TABLET. PO PRN (07:30)
[2020-01-06] MEDS ORDERED: ONDANSETRON PF 4 MG/2 ML VIAL. IV PRN ×2 (07:30)
--- NOTE | 2020-01-06 07:41 | PDOC1 ---
History and Physical Date of Admission Date of Admission DATE: 01/06/20 TIME: 07:25 Identification/Chief Complaint Chief Complaint Shortness of breath Source Source: Patient History of Present Illness History of Present Illness Mr Fabian is a 68 yo M w/ PMHx lung ca (squamous cell, poorly differentiated), severe COPD on 3L NCO2, ex-smoker, CAD s/p LUCILLE (within past 30 days), thoracic aortic aneursym s/p graft repair and recent diagnosis of COVID 19 on 12/15/2019 (at [facility]) who p/w worsening dyspnea at home. He also notes pleuritic type chest pain on deep inspiration that is substernal and sharp, relieved with rest and shallow breathing. Worse with cough. Denies any fever, chills, no headaches, no nausea, vomiting, no diarrhea, no dysuria, no focal weakness. He has not had a repeat COVID 19 test since his positive diagnosis 22 days ago. CXR in ED concerning for spiculated appearance of the right hilum and increased opacity in the right upper lobe. Labs significant for WBC 14.4, Hb 11.8, platelets 215, NA 134, K4.9, BUN 24, CR 0.9, glucose 107, BNP 276, troponin 0. D-dimer 2.29 EKG consistent with sinus tachycardia. Ventricular rate of 123 bpm. Left axis noted. Enlarged P waves present. Pulmonary pattern appreciated. No acute ST segment elevation noted. BiPAP was initiated due to severe respiratory distress and hypoxia in ED. Symbicort inhaler treatments were administered given his history of positive COVID status. CT PE study was attempted to be obtained however the patient's IV was malfunctioning. Given 125 mg IV Solu-Medrol. Admitted for further care Past Medical History Cardiovascular: CAD Pulmonary: COPD GI: No pertinent hx Heme/Onc: Cancer Hepatobiliary: Hep A/B/C Psych: No pertinent hx Rheumatologic: No pertinent hx Infectious disease: No pertinent hx Renal/: No pertinent hx Endocrine: No pertinent hx Past Surgical History Past Surgical History: Tonsillectomy Family History Family History: No Significant, High Cholestrol, Hypertension Social History Smoke: Quit ALCOHOL: none Drugs: Marijuana Current Problem List Problem List Problems Medical Problems: (1) Acute on chronic respiratory failure with hypoxia Status: Acute (2) COPD exacerbation Status: Acute (3) COVID-19 Status: Acute Current Medications Current Medications Current Medications Albuterol/ Ipratropium (Duoneb) 9 ml 1X ONCE NEB ; Start 01/05/20 at 21:45; Stop 01/05/20 at 21:46; Status UNV Methylprednisolone Sodium Succinate (SOLU-Medrol 125MG VIAL) 125 mg 1X ONCE IV Last administered on 01/05/20at 22:30; Start 01/05/20 at 22:00; Stop 01/05/20 at 22:01; Status DC Sodium Chloride 1,000 ml @ 2,000 mls/hr 1X ONCE IV Last administered on 01/05/20at 22:31; Start 01/05/20 at 22:00; Stop 01/05/20 at 22:29; Status DC Albuterol/ Ipratropium (Combivent Respimat 20-100 Mcg) 1 puff 1X ONCE INH Last administered on 01/05/20at 22:29; Start 01/05/20 at 22:00; Stop 01/05/20 at 22:01; Status DC Fentanyl Citrate (Fentanyl 2ml Vial) 50 mcg 1X ONCE IVP Last administered on 01/05/20at 22:30; Start 01/05/20 at 22:15; Stop 01/05/20 at 22:16; Status DC Iohexol (Omnipaque 350 Mg/ml) 100 ml 1X ONCE IV ; Start 01/05/20 at 23:00; Stop 01/05/20 at 23:01; Status DC Info (CONTRAST GIVEN -- Rx MONITORING) 1 each PRN DAILY PRN MC SEE COMMENTS; Start 01/05/20 at 23:00; Stop 01/07/20 at 22:59 Lorazepam (Ativan) 1 mg 1X ONCE PO Last administered on 01/06/20at 00:03; Start 01/06/20 at 00:00; Stop 01/06/20 at 00:01; Status DC Ondansetron HCl (Zofran) 4 mg PRN Q8HRS PRN IV NAUSEA/VOMITING; Start 01/06/20 at 00:00; Stop 01/06/20 at 23:59 Active Scripts Active Lisinopril 5 Mg Tablet 0.5 Tab PO QHS Metoprolol Succinate ( Xl ) (Metoprolol Succinate) 25 Mg Tab.er.24h 0.5 Tab PO DAILY Prednisone 20 Mg Tablet 1 Tab PO DAILY 5 Days Duoneb 0.5-3(2.5) Mg/3 Ml (Albuterol/Ipratropium) 3 Ml Ampul.neb 3 Ml NEB Q4HRS 30 Days Reported NITROGLYCERIN SubLingual (Nitroglycerin) 0.4 Mg Tab.subl 0.4 Mg SL PRN Q5MIN PRN Flonase Allergy Relief (Fluticasone Propionate) 9.9 Ml Wendell.susp 2 Sprays NS DAILY Protonix (Pantoprazole Sodium) 20 Mg Tablet.dr 40 Mg PO DAILY Metoprolol Succinate ( Xl ) (Metoprolol Succinate) 25 Mg Tab.er.24h 1 Tab PO DAILY Lisinopril 5 Mg Tablet 1 Tab PO DAILY Aspirin Ec (Aspirin) 81 Mg Tablet.dr 1 Tab PO DAILY Brilinta (Ticagrelor) 90 Mg Tablet 90 Mg PO BID Atorvastatin Calcium 80 Mg Tablet 80 Mg PO QHS Hydroxyzine Pamoate 50 Mg Capsule 50 Mg PO PRN DAILY PRN Proair Hfa Inhaler (Albuterol Sulfate) 8.5 Gm Hfa.aer.ad 1 Puff INH PRN Q6HRS PRN Symbicort 160-4.5 Mcg Inhaler (Budesonide/Formoterol Fumarate) 10.2 Gm Hfa.aer.ad 1 Puff IH BID Allergies Allergies: Coded Allergies: No Known Drug Allergies (Unverified , 06/04/19) ROS General: YES: Fatigue, Malaise; No: Chills, Night Sweats, Appetite, Other PSYCHOLOGICAL ROS: YES: Anxiety; No: Behavioral Disorder, Concentration difficultie, Decreased libido, Depression, Disorientation, Hallucinations, Hostility, Irritablity, Memory difficulties, Mood Swings, Obsessive thoughts, Physical abuse, Sexual abuse, Sleep disturbances, Suicidal ideation, Other Eyes: No Blurry vision, No Decreased vision, No Double vision, No Dry eyes, No Excessive tearing, No Eye Pain, No Itchy Eyes, No Loss of vision, No Photophobia, No Scotomata, No Uses contacts, No Uses glasses, No Other HEENT: No: Heacaches, Visual Changes, Hearing change, Nasal congestion, Nasal discharge, Oral lesions, Sinus pain, Sore Throat, Epistaxis, Sneezing, Snoring, Tinnitus, Vertigo, Vocal changes, Other ALLERGY AND IMMUNOLOGY: No: Hives, Insect Bite Sensitivity, Itchy/Watery Eyes, Nasal Congestion, Post Nasal Drip, Seasonal Allergies, Other Hematological and Lymphatic: No: Bleeding Problems, Blood Clots, Blood Transfusions, Brusing, Night Sweats, Pallor, Swollen Lymph Nodes, Other ENDOCRINE: No: Breast Changes, Galactorrhea, Hair Pattern Changes, Hot Flashes, Malaise/lethargy, Mood Swings, Palpitations, Polydipsia/polyuria, Skin Changes, Temperature Intolerance, Unexpected Weight Changes, Other Breast: No New/Changing Breast Lumps, No Nipple changes, No Nipple discharge, N o Other Respiratory: YES: Cough, Pleuritic Pain, Shortness of breath, SOB with excertion, Tachypnea, Wheezing; No: Hemoptysis, Orthopnea, Sputum Changes, Stridor, Other Cardiovascular: yes Chest Pain; No Palpitations, No Orthopnea, No Paroxysmal Noc. Dyspnea, No Edema, No Lt Headedness, No Other Gastrointestinal: No Nausea, No Vomiting, No Abdominal Pain, No Diarrhea, No Constipation, No Melena, No Hematochezia, No Other Genitourinary: No Dysuria, No Frequency, No Incontinence, No Hematuria, No Retention, No Discharge, No Urgency, No Pain, No Flank Pain, No Other, No , No , No , No , No , No , No Musculoskeletal: No Gait Disturbance, No Joint Pain, No Joint Stiffness, No Joint Swelling, No Muscle Pain, No Muscular Weakness, No Pain In:, No Swelling In:, No Other Neurological: No Behavorial Changes, No Bowel/Bladder ControlChng, No Confusion, No Dizziness, No Gait Disturbance, No Headaches, No Impaired Coord/balance, No Memory Loss, No Numbness/Tingling, No Seizures, No Speech Problems, No Tremors, No Visual Changes, No Weakness, No Other Skin: No Dry Skin, No Eczema, No Hair Changes, No Lumps, No Mole Changes, No Mottling, No Nail Changes, No Pruritus, No Rash, No Skin Lesion Changes, No Other, No Acne Physical Exam General: Alert, Oriented X3, Cooperative, moderate distress HEENT: Atraumatic, PERRLA, EOMI, Mucous membr. moist/pink Lungs: Other (wheezing) Heart: S1S2, RRR, no thrills, no rubs, no gallops, no murmurs Abdomen: Normal bowel sounds, Soft, No tenderness, No hepatosplenomegaly, No masses Rectal Exam: not examined Extremities: No clubbing, No cyanosis, No edema, Normal pulses, No tenderness/swelling Skin: No rashes, No breakdown, No significant lesion Neuro: Normal gait, Normal speech, Strength at 5/5 X4 ext, Normal tone, Sensation intact, Cranial nerves 3-12 NL, Reflexes 2+ Psych/Mental Status: Mental status NL, Mood NL Vitals Vitals Vital Signs Date Time Temp Pulse Resp B/P (MAP) Pulse Ox O2 Delivery O2 Flow Rate FiO2 01/06/20 05:30 Nasal Cannula 4.0 01/06/20 03:51 98.3 110 20 113/74 (87) 95 98.3 Labs Labs Laboratory Tests Test 01/05/20 21:57 01/06/20 03:15 White Blood Count 10.2 x10^3/uL (4.0-11.0) 14.4 x10^3/uL (4.0-11.0) Red Blood Count 4.34 x10^6/uL (4.30-5.70) 4.14 x10^6/uL (4.30-5.70) Hemoglobin 12.3 g/dL (13.0-17.5) 11.8 g/dL (13.0-17.5) Hematocrit 36.9 % (39.0-53.0) 35.2 % (39.0-53.0) Mean Corpuscular Volume 85 fL (79-100) 85 fL (79-100) Mean Corpuscular Hemoglobin 28 pg (25-35) 29 pg (25-35) Mean Corpuscular Hemoglobin Concent 33 g/dL (31-37) 34 g/dL (31-37) Red Cell Distribution Width 14.3 % (11.5-14.5) 14.2 % (11.5-14.5) Platelet Count 235 x10^3/uL (140-400) 215 x10^3/uL (140-400) Neutrophils (%) (Auto) 81 % (31-73) 96 % (31-73) Lymphocytes (%) (Auto) 9 % (24-48) 2 % (24-48) Monocytes (%) (Auto) 8 % (0-9) 2 % (0-9) Eosinophils (%) (Auto) 1 % (0-3) 0 % (0-3) Basophils (%) (Auto) 1 % (0-3) 0 % (0-3) Neutrophils # (Auto) 8.3 x10^3/uL (1.8-7.7) 13.8 x10^3/uL (1.8-7.7) Lymphocytes # (Auto) 1.0 x10^3/uL (1.0-4.8) 0.3 x10^3/uL (1.0-4.8) Monocytes # (Auto) 0.8 x10^3/uL (0.0-1.1) 0.2 x10^3/uL (0.0-1.1) Eosinophils # (Auto) 0.1 x10^3/uL (0.0-0.7) 0.0 x10^3/uL (0.0-0.7) Basophils # (Auto) 0.0 x10^3/uL (0.0-0.2) 0.0 x10^3/uL (0.0-0.2) D-Dimer (Yazmin) 2.29 ug/mlFEU (0.00-0.50) Sodium Level 134 mmol/L (136-145) 136 mmol/L (136-145) Potassium Level 4.1 mmol/L (3.5-5.1) 4.1 mmol/L (3.5-5.1) Chloride Level 101 mmol/L (98-107) 101 mmol/L (98-107) Carbon Dioxide Level 32 mmol/L (21-32) 28 mmol/L (21-32) Anion Gap 1 (6-14) 7 (6-14) Blood Urea Nitrogen 24 mg/dL (8-26) 21 mg/dL (8-26) Creatinine 0.9 mg/dL (0.7-1.3) 0.9 mg/dL (0.7-1.3) Estimated GFR (Cockcroft-Gault) 83.4 83.4 Glucose Level 107 mg/dL (70-99) 172 mg/dL (70-99) Calcium Level 8.7 mg/dL (8.5-10.1) 8.5 mg/dL (8.5-10.1) Magnesium Level 2.3 mg/dL (1.8-2.4) Ferritin 221 ng/mL (26-388) Lactate Dehydrogenase 220 U/L (85-227) Troponin I Quantitative < 0.017 ng/mL (0.000-0.055) KS-Rst-I-Type Natriuretic Peptide 276 pg/mL (0-124) Segmented Neutrophils % 88 % (35-66) Band Neutrophils % 8 % (0-9) Lymphocytes % 3 % (24-48) Monocytes % 1 % (0-10) Platelet Estimate Adequate (ADEQUATE) Laboratory Tests Test 01/05/20 21:57 01/06/20 03:15 White Blood Count 10.2 x10^3/uL (4.0-11.0) 14.4 x10^3/uL (4.0-11.0) Red Blood Count 4.34 x10^6/uL (4.30-5.70) 4.14 x10^6/uL (4.30-5.70) Hemoglobin 12.3 g/dL (13.0-17.5) 11.8 g/dL (13.0-17.5) Hematocrit 36.9 % (39.0-53.0) 35.2 % (39.0-53.0) Mean Corpuscular Volume 85 fL (79-100) 85 fL (79-100) Mean Corpuscular Hemoglobin 28 pg (25-35) 29 pg (25-35) Mean Corpuscular Hemoglobin Concent 33 g/dL (31-37) 34 g/dL (31-37) Red Cell Distribution Width 14.3 % (11.5-14.5) 14.2 % (11.5-14.5) Platelet Count 235 x10^3/uL (140-400) 215 x10^3/uL (140-400) Neutrophils (%) (Auto) 81 % (31-73) 96 % (31-73) Lymphocytes (%) (Auto) 9 % (24-48) 2 % (24-48) Monocytes (%) (Auto) 8 % (0-9) 2 % (0-9) Eosinophils (%) (Auto) 1 % (0-3) 0 % (0-3) Basophils (%) (Auto) 1 % (0-3) 0 % (0-3) Neutrophils # (Auto) 8.3 x10^3/uL (1.8-7.7) 13.8 x10^3/uL (1.8-7.7) Lymphocytes # (Auto) 1.0 x10^3/uL (1.0-4.8) 0.3 x10^3/uL (1.0-4.8) Monocytes # (Auto) 0.8 x10^3/uL (0.0-1.1) 0.2 x10^3/uL (0.0-1.1) Eosinophils # (Auto) 0.1 x10^3/uL (0.0-0.7) 0.0 x10^3/uL (0.0-0.7) Basophils # (Auto) 0.0 x10^3/uL (0.0-0.2) 0.0 x10^3/uL (0.0-0.2) D-Dimer (Yazmin) 2.29 ug/mlFEU (0.00-0.50) Sodium Level 134 mmol/L (136-145) 136 mmol/L (136-145) Potassium Level 4.1 mmol/L (3.5-5.1) 4.1 mmol/L (3.5-5.1) Chloride Level 101 mmol/L (98-107) 101 mmol/L (98-107) Carbon Dioxide Level 32 mmol/L (21-32) 28 mmol/L (21-32) Anion Gap 1 (6-14) 7 (6-14) Blood Urea Nitrogen 24 mg/dL (8-26) 21 mg/dL (8-26) Creatinine 0.9 mg/dL (0.7-1.3) 0.9 mg/dL (0.7-1.3) Estimated GFR (Cockcroft-Gault) 83.4 83.4 Glucose Level 107 mg/dL (70-99) 172 mg/dL (70-99) Calcium Level 8.7 mg/dL (8.5-10.1) 8.5 mg/dL (8.5-10.1) Magnesium Level 2.3 mg/dL (1.8-2.4) Ferritin 221 ng/mL (26-388) Lactate Dehydrogenase 220 U/L (85-227) Troponin I Quantitative < 0.017 ng/mL (0.000-0.055) JR-Pqf-[id number]-Type Natriuretic Peptide 276 pg/mL (0-124) Segmented Neutrophils % 88 % (35-66) Band Neutrophils % 8 % (0-9) Lymphocytes % 3 % (24-48) Monocytes % 1 % (0-10) Platelet Estimate Adequate (ADEQUATE) Images Images CXR: The cardiomediastinal silhouette and pulmonary vessels are within normal limits. Stable spiculated appearance of the right hilum. No pleural effusion. Increased opacity at the right apex. IMPRESSION: Stable posttreatment changes at the lainey. Increased opacity of the right apex, recommend further evaluation with CT. VTE Prophylaxis Ordered VTE Prophylaxis Devices: No VTE Pharmacological Prophylaxi: Yes Assessment/Plan Assessment/Plan A/P: Acute on chronic hypoxic respiratory failure - likely COPD exacerbation. steroids, pulm consultation Chest pain - will obtain CTPA to r/o VTE as well as venous dopplers. Trend troponins. Telemetry. Cont brilinta, ASA, BB Acute exacerbation with chronic obstructive pulmonary disease - steroids, inhalers until COVID 19 negative, then transition to nebulizers. He may be better suited in negative pressure room in case BIPAP is necessary Coronary artery disease status post PCI - stable, will trend troponins, no missed doses. 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 Tobacco dependence, in remission. Protein malnutrition, present upon admission. FEN - cardiac diet PPX - lovenox FULL CODE. Greater than 16 minutes Advanced care planning with patient and family. Dispo - inpatient for above Justifications for Admission Other Justification JOAN MIGUEL MD Jan 06, 2020 07:41
[2020-01-06] MEDS ORDERED: hydrOXYzine 25 MG TABLET PO PRN (07:45)
[2020-01-06] MEDS ORDERED: FLU VACC QS 2020-21(6MOS+)/PF 0.5 ML SYRINGE. VAX IM ONE (07:45)
[2020-01-06] MEDS ORDERED: NITROGLYCERIN SUBLINGUAL 0.4 MG BOTTLE OF 25. SL PRN (07:45)
[2020-01-06] MEDS ORDERED: ALBUTEROL SULFATE 2.5 MG/3 ML NEBU. INH PRN (07:45)
[2020-01-06] MEDS: BUDESONIDE 0.5 MG/2 ML NEBU. NEB SCH (08:00)
[2020-01-06] MEDS: METOPROLOL SUCC 24HR ER 25 MG TAB.ER.24H. PO SCH (09:00)
[2020-01-06] MEDS ORDERED: NON FORMULARY ITEM (Budesonide/Formoterol Fumarate (Symbicort 160-4.5 Mcg Inhaler) 1 PUFF) IH SCH (09:00)
[2020-01-06] MEDS ORDERED: LISINOPRIL 5 MG TABLET. PO SCH (09:00)
--- NOTE | 2020-01-06 09:37 | EKG ---
[facility] [address] [place] [address] Test Date: 2020-01-05 Test Time: 21:46:26 Pat Name: ANTONI LINDER Department: Room: Gender: M Monologist: : 1950 Requested By: YARELIS HOWARD Order Number: [id number] Reading MD: Measurements Intervals [place] Rate: 123 P: 90 WI: 156 QRS: 8 QRSD: 80 T: 72 QT: 294 QTc: 426 Interpretive Statements SINUS TACHYCARDIA QRS(T) CONTOUR ABNORMALITY CONSIDER ANTEROLATERAL MYOCARDIAL DAMAGE POSSIBLY ABNORMAL ECG RI6.01 No previous ECG available for comparison
--- NOTE | 2020-01-06 09:41 | EKG ---
[facility] [address] [place] [address] Test Date: 2020-01-05 Test Time: 22:55:45 Pat Name: ANTONI LINDER Department: Room: 4 Gender: M Skull Splitter: : 1950 Requested By: YARELIS HOWARD Order Number: [id number] Reading MD: Measurements Intervals [place] Rate: 110 P: -129 PA: 152 QRS: 7 QRSD: 84 T: 65 QT: 320 QTc: 438 Interpretive Statements SINUS TACHYCARDIA ST & T ABNORMALITY, CONSIDER RECENT INFERIOR MYOCARDIAL OR PERICARDIAL DAMAGE ABNORMAL ECG RI6.01 No previous ECG available for comparison
[2020-01-06] MEDS: IPRATRPIUM/ALBUTEROL 0.5/2.5MG 3 ML NEBU. NEB SCH ×4 (10:00→22:00)
[2020-01-06] MEDS: ZINC SULFATE 220 MG CAPSULE. PO SCH (10:27)
[2020-01-06] MEDS: ASPIRIN ENTERIC COATED 81 MG TABLET.DR. PO SCH (10:27)
[2020-01-06] MEDS: methylPREDNISolone SOD SUCC PF 40 MG/ML VIAL. IV SCH ×3 (10:27→23:48)
[2020-01-06] MEDS: FLUTICASONE 50MCG/NASAL SPRAY 16GM BOTTLE. NS SCH (10:27)
[2020-01-06] MEDS: PANTOPRAZOLE 40 MG TABLET.DR. PO SCH (10:28)
[2020-01-06] MEDS: TICAGRELOR 90 MG TABLET. PO SCH ×2 (10:29→23:47)
[2020-01-06] MEDS: ENOXAPARIN 40 MG/0.4 ML SYRINGE. SQ SCH ×2 (10:29→23:48)
[2020-01-06 11:13] VITALS: BP 98/63
--- NOTE | 2020-01-06 12:26 | CONS ---
DATE OF CONSULTATION: PULMONARY CONSULTATION ATTENDING PHYSICIAN: Jayme Wills MD REASON FOR CONSULTATION: Dyspnea, hypoxia. 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 He also has a history of severe COPD and on home oxygen at 3 liters on a 24-hour basis. He sees my partner, Dr. Sidhu in the office. He was brought into the hospital with complaint of shortness of breath along with pleuritic type chest pain. He says he does not have any increased cough, fever, chills, no headaches, no nausea, vomiting, no diarrhea, no dysuria, no focal weakness. The patient underwent a chest x-ray and it was reviewed by me. He has a spiculated appearance of the right hilum. He has slightly increased opacity in the right upper lobe. I have been asked to see him for further evaluation. His D-dimer was abnormal. PAST MEDICAL HISTORY: 1. History of stage 2, poorly differentiated squamous cell cancer, was not a surgical candidate and status post radiation. 2. Previous CT with radiation-induced scarring the right lower lobe. 3. Severe oxygen dependent COPD on 3 liters. 4. History of CAD, status post LUCILLE. 5. History of thoracic aortic aneurysm, status post graft repair. PAST SURGICAL HISTORY: As discussed above. In addition, tonsillectomy. FAMILY HISTORY: Noncontributory to lungs. SOCIAL HISTORY: Smoked for 35 years before quitting. REVIEW OF SYSTEMS: Twelve-point system obtained. Pertinent positives discussed in my history of present illness, otherwise noncontributory. All systems that were negative were reviewed as well. MEDICATIONS: Reviewed as listed in the MRAD including Lovenox for DVT prophylaxis, IV steroids and nebulizer. PHYSICAL EXAMINATION: VITAL SIGNS: Reviewed. Pulse ox 94% on 2 liters, afebrile. GENERAL: Visual exam done due to COVID-19 suspicion. No obvious respiratory distress. SKIN: With no rash. EXTREMITIES: Legs with no edema. LABORATORY DATA: Reviewed. Sodium 136. BUN and creatinine 21 and 0.9. D-dimer was 2.29. White cell count 14.4, hemoglobin 11.8 and platelets 250. IMPRESSION: 1. Dyspnea with chronic hypoxic respiratory failure along with pleuritic type chest pain. needs to rule out for PE. This is a patient who has likely hypercoagulable state from underlying lung cancer. 2. Stage 2, poorly differentiated squamous cell carcinoma. He was not a surgical candidate due to severity of COPD. He is status post radiation. 3. Previous abnormal CT chest with radiation-induced scarring in the right lower lobe posteromedially. 4. Oxygen dependent, severe chronic obstructive pulmonary disease. RECOMMENDATIONS: 1. Discussed with Dr. Wills. Awaiting on CTA chest. 2. We will also obtain venous Dopplers of lower extremities. 3. Continue present oxygen. 4. Continue DuoNebs. 5. Lovenox for DVT prophylaxis for now until results of CTA chest available. 6. IV steroids. 7. We will follow the results of CTA and make further recommendations. He will continue with Radiation Oncology followup as well. We will also assess for status of thoracic aortic aneurysm on CTA chest. JESUS HARRY MD DR: GISEL/barbra JOB#: [id number] / [id number] ASHANTI
[2020-01-06] MEDS ORDERED: IOHEXOL 350 MG/ML 100 ML VIAL. IV ONE (12:30)
[2020-01-06] MEDS ORDERED: CONTRAST GIVEN. MC PRN (12:45)
--- NOTE | 2020-01-06 14:24 | RAD ---
Examination: CT ANGIOGRAPHY CHEST History: Chest pain, concern for PE / Spl. Instructions: omni 350 100ml / History: Comparison/Correlation: None Findings: Axial images of the chest were obtained following IV contrast according to pulmonary arteriography protocol. Sagittal and coronal reformatted images were provided. Maximum intensity projection images were provided. Pulmonary arterial vasculature is normal with no thromboembolic disease. Thoracic there is an ulceration involving the thoracic aortic arch at the inferior margin opposite the origin of the left subclavian artery. Great vessels of the aortic arch are widely patent at their origins. Extensive centrilobular emphysematous involvement of the lung rojas is noted. Scarring about the right hilum is evident. Posterior right pleural thickening is evident. No pneumothorax. Stent material involving the distal thoracic aorta and upper abdominal aorta. Abdominal aortic aneurysm at the esophageal hiatus level measuring up to 4.8 cm anteroposterior by 4.5 cm transverse is present. Radiopaque densities noted involving the upper abdomen about the celiac artery proximally. Large quantity of debris noted in the stomach. Bilateral main renal arteries are widely patent. Superior mesenteric artery is patent. Origin of the celiac artery is not well delineated but artifact due to surrounding metallic density. Bony structures are unremarkable for patient's age. Impression: No PE. No infiltrate. Right posterior perihilar scarring and pleural thickening is stable. No mass in the interval. Abdominal aortic aneurysm is stable. Aortic arch ulceration is present. PQRS Compliance Statement: One or more of the following individualized dose reduction techniques were utilized for this examination: 1. Automated exposure control 2. Adjustment of the mA and/or kV according to patient size 3. Use of iterative reconstruction technique Electronically signed by: Taye Mcdonald MD (01/06/2020 2:21 PM) [id number]
[2020-01-06 15:02] VITALS: BP 111/69
--- NOTE | 2020-01-06 17:01 | NUR ---
SW following. Spoke with RN and reviewed chart. Pt from home. Pt currently on 2l 02. Pt COVID pending so SW called into pt's room. MAHAD spoke with pt who stated he lives with a friend who was diagnosed with COVID last month. Pt stated he does have home 02. SW following.
--- NOTE | 2020-01-06 17:52 | NUR ---
Flu vaccine to be given at discharge
[2020-01-06 19:26] VITALS: BP 94/71
[2020-01-06] MEDS: TAMSULOSIN 0.4 MG CAP.ER.24H. PO SCH (23:47)
[2020-01-06] MEDS: ATORVASTATIN CALCIUM 40 MG TABLET. PO SCH (23:47)
[2020-01-06 23:51] VITALS: BP 98/65
[2020-01-07] VITALS (7 sets, daily range): BP systolic 97–109; BP diastolic 62–76
[2020-01-07 03:24] LABS: CALCIUM 8.5 mg/dL (8.5-10.1); CREATININE 0.9 mg/dL (0.7-1.3); GFR 83.4; POTASSIUM 4.4 mmol/L (3.5-5.1)
[2020-01-07 04:23] LABS: BASO % 0 % (0-3); EOS % 0 % (0-3); HEMATOCRIT 30.7 % (39.0-53.0); HEMOGLOBIN 10.7 g/dL (13.0-17.5); LYMPH # 0.5 x10^3/uL (1.0-4.8); LYMPH % 5 % (24-48); MEAN CORPUSCULAR HEMOGLOBIN 29 pg (25-35); MEAN CORPUSCULAR HGB CONC 35 g/dL (31-37); MEAN CORPUSCULAR VOLUME 85 fL (79-100); MONO # 0.3 x10^3/uL (0.0-1.1); MONO % 3 % (0-9); NEUT % 92 % (31-73); PLATELET COUNT 237 x10^3/uL (140-400); RED BLOOD COUNT 3.63 x10^6/uL (4.30-5.70); RED CELL DISTRIBUTION WIDTH 14.4 % (11.5-14.5); WHITE BLOOD COUNT 10.8 x10^3/uL (4.0-11.0)
[2020-01-07] MEDS: IPRATRPIUM/ALBUTEROL 0.5/2.5MG 3 ML NEBU. NEB SCH ×4 (06:00→20:19)
[2020-01-07] MEDS: methylPREDNISolone SOD SUCC PF 40 MG/ML VIAL. IV SCH ×3 (06:13→20:51)
[2020-01-07] MEDS: BUDESONIDE 0.5 MG/2 ML NEBU. NEB SCH ×2 (06:43→20:19)
--- NOTE | 2020-01-07 08:22 | PDOC ---
[facility] PROGRESS NOTE Date of Service DOS: DATE: 01/07/20 TIME: 08:21 Chief Complaint Chief Complaint A/P: Acute on chronic hypoxic respiratory failure - likely COPD exacerbation. steroids, pulm consultation Chest pain - will obtain CTPA to r/o VTE as well as venous dopplers. Trend troponins. Telemetry. Cont brilinta, ASA, BB Acute exacerbation with chronic obstructive pulmonary disease - steroids, inhalers until COVID 19 negative, then transition to nebulizers. He may be better suited in negative pressure room in case BIPAP is necessary Coronary artery disease status post PCI - stable, will trend troponins, no missed doses. Follows at [facility] for care Cardiomyopathy, ejection fraction of 45% - seems compensated currently Severe end-stage chronic obstructive pulmonary disease - on 3L NCO2 at home Stage 2 squamous cell carcinoma of the medial right lower lobe - status post radiation, diagnosed in 2018, not a surgical candidate History of thoracic aortic aneurysm, status post endovascular repair. Tobacco dependence, in remission. Protein malnutrition, present upon admission. Hyponatremia - improved. Likely hypovolemic FEN - cardiac diet PPX - lovenox FULL CODE. Dispo - inpatient for above History of Present Illness History of Present Illness Mr Fabian is a 68 yo M w/ PMHx lung ca (squamous cell, poorly differentiated), severe COPD on 3L NCO2, ex-smoker, CAD s/p LUCILLE (within past 30 days), thoracic aortic aneursym s/p graft repair and recent diagnosis of COVID 19 on 12/15/2019 (at [facility]) who p/w worsening dyspnea at home. He also notes pleuritic type chest pain on deep inspiration that is substernal and sharp, relieved with rest and shallow breathing. Worse with cough. Denies any fever, chills, no headaches, no nausea, vomiting, no diarrhea, no dysuria, no focal weakness. He has not had a repeat COVID 19 test since his positive diagnosis 22 days ago. CXR in ED concerning for spiculated appearance of the right hilum and increased opacity in the right upper lobe. Labs significant for WBC 14.4, Hb 11.8, platelets 215, NA 134, K4.9, BUN 24, CR 0.9, glucose 107, BNP 276, troponin 0. D-dimer 2.29 EKG consistent with sinus tachycardia. Ventricular rate of 123 bpm. Left axis noted. Enlarged P waves present. Pulmonary pattern appreciated. No acute ST segment elevation noted. BiPAP was initiated due to severe respiratory distress and hypoxia in ED. Symbicort inhaler treatments were administered given his history of positive COVID status. Initial CT PE study was attempted to be obtained however the patient's IV was malfunctioning. Given 125 mg IV Solu-Medrol. Admitted for further care. 01/05: CTPA negative for PE. Still with chest pain. Repeat COVID 19 swab obtained. Afebrile overnight. Had some tachycardia after breakfast sustained in the 180s for ~6 minutes. Breathing improved, chest pain improved. COVID 19 negative. TSH 0.129 Vitals/I&O Vitals/I&O: Vital Signs Date Time Temp Pulse Resp B/P (MAP) Pulse Ox O2 Delivery O2 Flow Rate FiO2 01/07/20 04:12 97.7 100 18 102/67 (79) 95 Nasal Cannula 2.0 97.7 I & O 01/06/20 01/06/20 01/07/20 15:00 23:00 07:00 Output Total 650 ml 325 ml 650 ml Balance -650 ml -325 ml -650 ml Physical Exam General: Alert, Oriented X3, Cooperative, moderate distress Lungs: Other Abdomen: Normal bowel sounds, Soft, No tenderness, No hepatosplenomegaly, No masses Extremities: No clubbing, No cyanosis, No edema, Normal pulses, No tenderness/swelling Skin: No rashes, No breakdown, No significant lesion Labs Labs: Laboratory Tests Test 01/06/20 21:10 01/07/20 02:30 Troponin I Quantitative < 0.017 ng/mL (0.000-0.055) < 0.017 ng/mL (0.000-0.055) White Blood Count 10.8 x10^3/uL (4.0-11.0) Red Blood Count 3.63 x10^6/uL (4.30-5.70) Hemoglobin 10.7 g/dL (13.0-17.5) Hematocrit 30.7 % (39.0-53.0) Mean Corpuscular Volume 85 fL (79-100) Mean Corpuscular Hemoglobin 29 pg (25-35) Mean Corpuscular Hemoglobin Concent 35 g/dL (31-37) Red Cell Distribution Width 14.4 % (11.5-14.5) Platelet Count 237 x10^3/uL (140-400) Neutrophils (%) (Auto) 92 % (31-73) Lymphocytes (%) (Auto) 5 % (24-48) Monocytes (%) (Auto) 3 % (0-9) Eosinophils (%) (Auto) 0 % (0-3) Basophils (%) (Auto) 0 % (0-3) Neutrophils # (Auto) 10.0 x10^3/uL (1.8-7.7) Lymphocytes # (Auto) 0.5 x10^3/uL (1.0-4.8) Monocytes # (Auto) 0.3 x10^3/uL (0.0-1.1) Eosinophils # (Auto) 0.0 x10^3/uL (0.0-0.7) Basophils # (Auto) 0.0 x10^3/uL (0.0-0.2) Sodium Level 137 mmol/L (136-145) Potassium Level 4.4 mmol/L (3.5-5.1) Chloride Level 103 mmol/L (98-107) Carbon Dioxide Level 29 mmol/L (21-32) Anion Gap 5 (6-14) Blood Urea Nitrogen 29 mg/dL (8-26) Creatinine 0.9 mg/dL (0.7-1.3) Estimated GFR (Cockcroft-Gault) 83.4 Glucose Level 139 mg/dL (70-99) Calcium Level 8.5 mg/dL (8.5-10.1) Assessment and Plan Assessmemt and Plan Problems Medical Problems: (1) Acute on chronic respiratory failure with hypoxia Status: Acute (2) COPD exacerbation Status: Acute (3) COVID-19 Status: Acute Comment Review of Relevant I have reviewed the following items luis (where applicable) has been applied. Medications: Current Medications Medications (Trade) Dose Ordered Sig/Royal Route PRN Reason Start Time Stop Time Status Last Admin Dose Admin Enoxaparin Sodium (Lovenox 40mg Syringe) 40 mg Q12H SQ 01/06/20 09:00 01/06/20 23:48 Zinc Sulfate (Orazinc) 220 mg DAILY PO 01/06/20 09:00 01/06/20 10:27 Aspirin (Ecotrin) 81 mg DAILY PO 01/06/20 09:00 01/06/20 10:27 Ticagrelor (Brilinta) 90 mg BID PO 01/06/20 09:00 01/06/20 23:47 Atorvastatin Calcium (Lipitor) 80 mg QHS PO 01/06/20 21:00 01/06/20 23:47 Fluticasone Propionate (Flonase) 2 spray DAILY NS 01/06/20 09:00 01/06/20 10:27 Pantoprazole Sodium (Protonix) 40 mg DAILYAC PO 01/06/20 09:00 01/06/20 10:28 Iohexol (Omnipaque 350 Mg/ml) 100 ml 1X ONCE IV 01/06/20 12:30 01/06/20 12:31 DC 01/06/20 12:30 Tamsulosin HCl (Flomax) 0.4 mg QHS PO 01/06/20 21:00 01/06/20 23:47 Justifications for Admission Other Justification JOAN MIGUEL MD Jan 07, 2020 08:22
[2020-01-07] MEDS: ASPIRIN ENTERIC COATED 81 MG TABLET.DR. PO SCH (08:47)
[2020-01-07] MEDS: METOPROLOL SUCC 24HR ER 25 MG TAB.ER.24H. PO SCH (08:48)
[2020-01-07] MEDS: TICAGRELOR 90 MG TABLET. PO SCH ×2 (08:48→20:50)
[2020-01-07] MEDS: ZINC SULFATE 220 MG CAPSULE. PO SCH (08:49)
[2020-01-07] MEDS: PANTOPRAZOLE 40 MG TABLET.DR. PO SCH (08:49)
[2020-01-07] MEDS: ENOXAPARIN 40 MG/0.4 ML SYRINGE. SQ SCH ×2 (08:49→20:50)
[2020-01-07] MEDS: FLUTICASONE 50MCG/NASAL SPRAY 16GM BOTTLE. NS SCH (08:55)
--- NOTE | 2020-01-07 11:11 | PDOC ---
PULMONARY PROGRESS NOTES DATE: 01/07/20 TIME: 11:03 Subjective FEELS BETTER no CP Vitals Vital Signs Date Time Temp Pulse Resp B/P (MAP) Pulse Ox O2 Delivery O2 Flow Rate FiO2 01/07/20 08:48 100 102/67 01/07/20 07:05 98.8 17 94 Nasal Cannula 2.0 98.8 Comments visual exam done due to COVID19 no distress, no rash General: Alert, No acute distress Labs Laboratory Tests Test 01/05/20 21:57 01/06/20 03:15 01/06/20 21:10 01/07/20 02:30 White Blood Count 10.2 x10^3/uL (4.0-11.0) 14.4 x10^3/uL (4.0-11.0) 10.8 x10^3/uL (4.0-11.0) Red Blood Count 4.34 x10^6/uL (4.30-5.70) 4.14 x10^6/uL (4.30-5.70) 3.63 x10^6/uL (4.30-5.70) Hemoglobin 12.3 g/dL (13.0-17.5) 11.8 g/dL (13.0-17.5) 10.7 g/dL (13.0-17.5) Hematocrit 36.9 % (39.0-53.0) 35.2 % (39.0-53.0) 30.7 % (39.0-53.0) Mean Corpuscular Volume 85 fL (79-100) 85 fL (79-100) 85 fL (79-100) Mean Corpuscular Hemoglobin 28 pg (25-35) 29 pg (25-35) 29 pg (25-35) Mean Corpuscular Hemoglobin Concent 33 g/dL (31-37) 34 g/dL (31-37) 35 g/dL (31-37) Red Cell Distribution Width 14.3 % (11.5-14.5) 14.2 % (11.5-14.5) 14.4 % (11.5-14.5) Platelet Count 235 x10^3/uL (140-400) 215 x10^3/uL (140-400) 237 x10^3/uL (140-400) Neutrophils (%) (Auto) 81 % (31-73) 96 % (31-73) 92 % (31-73) Lymphocytes (%) (Auto) 9 % (24-48) 2 % (24-48) 5 % (24-48) Monocytes (%) (Auto) 8 % (0-9) 2 % (0-9) 3 % (0-9) Eosinophils (%) (Auto) 1 % (0-3) 0 % (0-3) 0 % (0-3) Basophils (%) (Auto) 1 % (0-3) 0 % (0-3) 0 % (0-3) Neutrophils # (Auto) 8.3 x10^3/uL (1.8-7.7) 13.8 x10^3/uL (1.8-7.7) 10.0 x10^3/uL (1.8-7.7) Lymphocytes # (Auto) 1.0 x10^3/uL (1.0-4.8) 0.3 x10^3/uL (1.0-4.8) 0.5 x10^3/uL (1.0-4.8) Monocytes # (Auto) 0.8 x10^3/uL (0.0-1.1) 0.2 x10^3/uL (0.0-1.1) 0.3 x10^3/uL (0.0-1.1) Eosinophils # (Auto) 0.1 x10^3/uL (0.0-0.7) 0.0 x10^3/uL (0.0-0.7) 0.0 x10^3/uL (0.0-0.7) Basophils # (Auto) 0.0 x10^3/uL (0.0-0.2) 0.0 x10^3/uL (0.0-0.2) 0.0 x10^3/uL (0.0-0.2) D-Dimer (Yazmin) 2.29 ug/mlFEU (0.00-0.50) Sodium Level 134 mmol/L (136-145) 136 mmol/L (136-145) 137 mmol/L (136-145) Potassium Level 4.1 mmol/L (3.5-5.1) 4.1 mmol/L (3.5-5.1) 4.4 mmol/L (3.5-5.1) Chloride Level 101 mmol/L (98-107) 101 mmol/L (98-107) 103 mmol/L (98-107) Carbon Dioxide Level 32 mmol/L (21-32) 28 mmol/L (21-32) 29 mmol/L (21-32) Anion Gap 1 (6-14) 7 (6-14) 5 (6-14) Blood Urea Nitrogen 24 mg/dL (8-26) 21 mg/dL (8-26) 29 mg/dL (8-26) Creatinine 0.9 mg/dL (0.7-1.3) 0.9 mg/dL (0.7-1.3) 0.9 mg/dL (0.7-1.3) Estimated GFR (Cockcroft-Gault) 83.4 83.4 83.4 Glucose Level 107 mg/dL (70-99) 172 mg/dL (70-99) 139 mg/dL (70-99) Calcium Level 8.7 mg/dL (8.5-10.1) 8.5 mg/dL (8.5-10.1) 8.5 mg/dL (8.5-10.1) Magnesium Level 2.3 mg/dL (1.8-2.4) Ferritin 221 ng/mL (26-388) Lactate Dehydrogenase 220 U/L (85-227) Troponin I Quantitative < 0.017 ng/mL (0.000-0.055) < 0.017 ng/mL (0.000-0.055) < 0.017 ng/mL (0.000-0.055) LL-Mxn-R-Type Natriuretic Peptide 276 pg/mL (0-124) Segmented Neutrophils % 88 % (35-66) Band Neutrophils % 8 % (0-9) Lymphocytes % 3 % (24-48) Monocytes % 1 % (0-10) Platelet Estimate Adequate (ADEQUATE) Laboratory Tests Test 01/06/20 21:10 01/07/20 02:30 Troponin I Quantitative < 0.017 ng/mL (0.000-0.055) < 0.017 ng/mL (0.000-0.055) White Blood Count 10.8 x10^3/uL (4.0-11.0) Red Blood Count 3.63 x10^6/uL (4.30-5.70) Hemoglobin 10.7 g/dL (13.0-17.5) Hematocrit 30.7 % (39.0-53.0) Mean Corpuscular Volume 85 fL (79-100) Mean Corpuscular Hemoglobin 29 pg (25-35) Mean Corpuscular Hemoglobin Concent 35 g/dL (31-37) Red Cell Distribution Width 14.4 % (11.5-14.5) Platelet Count 237 x10^3/uL (140-400) Neutrophils (%) (Auto) 92 % (31-73) Lymphocytes (%) (Auto) 5 % (24-48) Monocytes (%) (Auto) 3 % (0-9) Eosinophils (%) (Auto) 0 % (0-3) Basophils (%) (Auto) 0 % (0-3) Neutrophils # (Auto) 10.0 x10^3/uL (1.8-7.7) Lymphocytes # (Auto) 0.5 x10^3/uL (1.0-4.8) Monocytes # (Auto) 0.3 x10^3/uL (0.0-1.1) Eosinophils # (Auto) 0.0 x10^3/uL (0.0-0.7) Basophils # (Auto) 0.0 x10^3/uL (0.0-0.2) Sodium Level 137 mmol/L (136-145) Potassium Level 4.4 mmol/L (3.5-5.1) Chloride Level 103 mmol/L (98-107) Carbon Dioxide Level 29 mmol/L (21-32) Anion Gap 5 (6-14) Blood Urea Nitrogen 29 mg/dL (8-26) Creatinine 0.9 mg/dL (0.7-1.3) Estimated GFR (Cockcroft-Gault) 83.4 Glucose Level 139 mg/dL (70-99) Calcium Level 8.5 mg/dL (8.5-10.1) Medications Active Scripts Medications Dose Route/Sig Max Daily Dose Days Date Category NITROGLYCERIN SubLingual (Nitroglycerin) 0.4 Mg Tab.subl 0.4 Mg SL PRN Q5MIN PRN 01/06/20 Reported Flonase Allergy Relief (Fluticasone Propionate) 9.9 Ml [place].susp 2 Sprays NS DAILY 01/06/20 Reported Protonix (Pantoprazole Sodium) 20 Mg Tablet.dr 40 Mg PO DAILY 01/06/20 Reported Metoprolol Succinate ( Xl ) (Metoprolol Succinate) 25 Mg Tab.er.24h 1 Tab PO DAILY 01/06/20 Reported Lisinopril 5 Mg Tablet 1 Tab PO DAILY 01/06/20 Reported Lisinopril 5 Mg Tablet 0.5 Tab PO QHS 06/09/19 Rx Metoprolol Succinate ( Xl ) (Metoprolol Succinate) 25 Mg Tab.er.24h 0.5 Tab PO DAILY 06/09/19 Rx Prednisone 20 Mg Tablet 1 Tab PO DAILY 5 06/08/19 Rx Duoneb 0.5-3(2.5) Mg/3 Ml (Albuterol/Ipratropium) 3 Ml Ampul.neb 3 Ml NEB Q4HRS 30 06/08/19 Rx Aspirin Ec (Aspirin) 81 Mg Tablet.dr 1 Tab PO DAILY 06/04/19 Reported Brilinta (Ticagrelor) 90 Mg Tablet 90 Mg PO BID 06/04/19 Reported Atorvastatin Calcium 80 Mg Tablet 80 Mg PO QHS 06/04/19 Reported Hydroxyzine Pamoate 50 Mg Capsule 50 Mg PO PRN DAILY PRN 06/04/19 Reported Proair Hfa Inhaler (Albuterol Sulfate) 8.5 Gm Hfa.aer.ad 1 Puff INH PRN Q6HRS PRN 11/27/17 Reported Symbicort 160-4.5 Mcg Inhaler (Budesonide/Formoterol Fumarate) 10.2 Gm Hfa.aer.ad 1 Puff IH BID 11/27/[address] CHEST Impression: No PE. No infiltrate. Right posterior perihilar scarring and pleural thickening is stable. No mass in the interval. Abdominal aortic aneurysm is stable. Aortic arch ulceration is present. Impression . 1. Dyspnea with chronic hypoxic respiratory failure along with pleuritic type chest pain. No evidence PE. 2. Stage 2, poorly differentiated squamous cell carcinoma. He was not a surgical candidate due to severity of COPD. He is status post radiation. 3. Previous abnormal CT chest with radiation-induced scarring in the right lower lobe posteromedially. REPEAT CT WITH NO SIG CHANGE 4. Oxygen dependent, severe chronic obstructive pulmonary disease. Plan . 1. Discussed with patient and Dr Wills. no PE on ct chest 2. Monitor clinically . Hold off on plasma or Remdesvir for now unless O2 requirement changes 3. Continue present oxygen. 4. Continue DuoNebs. 5. Lovenox for DVT prophylaxis / high dose 6. IV steroids. 7. continue with Radiation Oncology followup as well. JESUS HARRY MD Jan 07, 2020 11:10
[2020-01-07] MEDS ORDERED: METOPROLOL SUCC 24HR ER 25 MG TAB.ER.24H. PO ONE (11:45)
--- NOTE | 2020-01-07 11:51 | PDOC2 ---
JAKOB PUCKETT SANITIZER 01/07/20 1151: CARDIAC CONSULT DATE OF CONSULT Date of Consult DATE: 01/07/20 TIME: 11:15 REASON FOR CONSULT Reason for Consult: SVT, recent stents at [facility] REFERRING PHYSICIAN Referring Physician: Johann SOURCE Source: Chart review, Patient HISTORY OF PRESENT ILLNESS HISTORY OF PRESENT ILLNESS This is a pleasant 69 yo male admitted for complains of chest pain and SOA. Reports that this chest pain is not the same when he had a heart attack. It started about 3 days ago and it hurts when he takes a deep breath, sharp in consistency and has been having dry coughing spells and throat clearing but no wheezing. No SOA per se but felt like it as he is not able to take a deep breath. He finally took NTG but did not help. No nausea or vomiting and no hx of GERD or PUD. He did have TAA repair as it was noted at 6 cm and also PCI about a month after that this summer. No recent falls or injury. He did get exposed to covid before and was tested positive 10 days ago and now he is negative. He is feeling good and no further symptoms. Denies any palpitations, frequent dizzy spells. Consult is SVT which is paroxysmal which he does not have a history of. He had his vascular and cardiac procedure at [facility]. To add he has lost about 40 pounds in the last 2 months and has been using edible marijuana to increase his appetite. PAST MEDICAL HISTORY Cardiovascular: CAD, HTN, Hyperlipidemia, Other (TAA) Pulmonary: COPD (severe and O2 dependent and bipap) CENTRAL NERVOUS SYSTEM: Other (No pertinent history) GI: No pertinent hx Heme/Onc: Cancer (Stage 2 NSCLCA, squamous cell ) Hepatobiliary: Hep A/B/C (remotely) Psych: No pertinent hx Musculoskeletal: Osteoarthritis Rheumatologic: No pertinent hx Infectious disease: Other ENT: No pertinent hx Renal/: Benign prostatic enlarg. PAST SURGICAL HISTORY Past Surgical History: Other (PCI, Endovascular TAA repair) SOCIAL HISTORY Smoke: <1 pack per day ALCOHOL: none Drugs: Marijuana Lives: with Family CURRENT MEDICATIONS CURRENT MEDICATIONS Current Medications Medications (Trade) Dose Ordered Sig/Royal Route PRN Reason Start Time Stop Time Status Last Admin Dose Admin Atorvastatin Calcium (Lipitor) 80 mg QHS PO 01/06/20 21:00 01/06/20 23:47 Iohexol (Omnipaque 350 Mg/ml) 100 ml 1X ONCE IV 01/06/20 12:30 01/06/20 12:31 DC 01/06/20 12:30 Tamsulosin HCl (Flomax) 0.4 mg QHS PO 01/06/20 21:00 01/06/20 23:47 ALLERGIES ALLERGIES: Coded Allergies: No Known Drug Allergies (Unverified , 06/04/19) ROS Review of System 14 point ROS evaluated with pertinent positives noted per HPI PHYSICAL EXAM General: Alert, Oriented X3, Cooperative, No acute distress HEENT: Atraumatic Lungs: Other (diminished, O2 supplement CT reviewed) Heart: Regular rate (SR) Abdomen: Soft, No tenderness Extremities: No cyanosis, No edema Skin: No breakdown, No significant lesion Neuro: Normal speech, Sensation intact Psych/Mental Status: Mental status NL, Mood NL MUSCULOSKELETAL: Osteoarthritic changes both hands VITALS/I&O VITALS/I&O: Vital Signs Date Time Temp Pulse Resp B/P (MAP) Pulse Ox O2 Delivery O2 Flow Rate FiO2 01/07/20 08:48 100 102/67 01/07/20 07:05 98.8 17 94 Nasal Cannula 2.0 98.8 I & O 01/06/20 01/06/20 01/07/20 15:00 23:00 07:00 Output Total 650 ml 325 ml 650 ml Balance -650 ml -325 ml -650 ml LABS Lab: Laboratory Tests Test 01/06/20 18:10 01/06/20 21:10 01/07/20 02:30 Coronavirus (PCR) Not detected (Not Detected) Troponin I Quantitative < 0.017 ng/mL (0.000-0.055) < 0.017 ng/mL (0.000-0.055) White Blood Count 10.8 x10^3/uL (4.0-11.0) Red Blood Count 3.63 x10^6/uL (4.30-5.70) L Hemoglobin 10.7 g/dL (13.0-17.5) L Hematocrit 30.7 % (39.0-53.0) L Mean Corpuscular Volume 85 fL (79-100) Mean Corpuscular Hemoglobin 29 pg (25-35) Mean Corpuscular Hemoglobin Concent 35 g/dL (31-37) Red Cell Distribution Width 14.4 % (11.5-14.5) Platelet Count 237 x10^3/uL (140-400) Neutrophils (%) (Auto) 92 % (31-73) H Lymphocytes (%) (Auto) 5 % (24-48) L Monocytes (%) (Auto) 3 % (0-9) Eosinophils (%) (Auto) 0 % (0-3) Basophils (%) (Auto) 0 % (0-3) Neutrophils # (Auto) 10.0 x10^3/uL (1.8-7.7) H Lymphocytes # (Auto) 0.5 x10^3/uL (1.0-4.8) L Monocytes # (Auto) 0.3 x10^3/uL (0.0-1.1) Eosinophils # (Auto) 0.0 x10^3/uL (0.0-0.7) Basophils # (Auto) 0.0 x10^3/uL (0.0-0.2) Sodium Level 137 mmol/L (136-145) Potassium Level 4.4 mmol/L (3.5-5.1) Chloride Level 103 mmol/L (98-107) Carbon Dioxide Level 29 mmol/L (21-32) Anion Gap 5 (6-14) L Blood Urea Nitrogen 29 mg/dL (8-26) H Creatinine 0.9 mg/dL (0.7-1.3) Estimated GFR (Cockcroft-Gault) 83.4 Glucose Level 139 mg/dL (70-99) H Calcium Level 8.5 mg/dL (8.5-10.1) Laboratory Tests 01/07/20 02:30 Laboratory Tests 01/07/20 02:30 ECHOCARDIOGRAM ECHOCARDIOGRAM <Conclusion> Technically difficult study with limited views. The left ventricular systolic function is normal. The Ejection Fraction is 55-60%. There is normal LV segmental wall motion. Transmitral Doppler flow pattern is Grade I-abnormal relaxation pattern. No significant valvular abnormalities. There is no evidence of significant pericardial effusion. DATE: 10/21/17 1011 STRESS TEST STRESS TEST Conclusion 1. Regadenoson cardioisotope stress test showed diaphragmatic attenuation artifact without any evidence of ischemia or infarct. 2. Normal left ventricular systolic function with ejection fraction calculated at 77%. 3. Low risk for cardiac events. DATE: 10/21/17 1353 ASSESSMENT/PLAN ASSESSMENT/PLAN 1. Atypical Chest pain: doubt ACS. Appears pleuritic, trops nml. No PE per CTA 2. Covid-19: + 10 days ago and now negative 3. Asymptomatic PSVT: noted with paroxysms 4. Severe COPD: O2 dependent 5. NSCLCA: Stage 2 squamous cell 6. Wt loss/anorexia: reported 40# loss in 2 months and has been taking edible marijuana to increase appetite. Defer to PCP 7. CAD; Recent PCI with stents at [facility] 8. Recent TAA endovascular repair: done prior to PCI 9. HLP 10. Continued tobaccoism Recommendations 1. Increase toprol XL to 25 mg. Hold ACEi for now with his marginal BP. 2. Continue ASA/brilinta. Continue statin. Obtain cardiac records from [facility]. 3. He would like to continue to follow up with Dr. Chowdary on February 09 10 AM. Will arrange for MCOT 4. Smoking cessation BERTRAND CHOWDARY MD 01/07/201943: CARDIAC CONSULT ASSESSMENT/PLAN ASSESSMENT/PLAN Patient seen and examined. Agree with T[employer]INE MECH[employer]IC's assessment and plan, Agree with increasing BB dose and plan outpatient MCOT to assess SVT burden and guide antiarrhythmic therapy CP with atypical features, IL ruled out. h/o CAD, recent PCI/stent, will obtain records from [facility] s/p TAA endovascular repair, stable Follow up with our office as scheduled Thank you for your consultation JAKOB PUCKETT APRN Jan 07, 2020 11:51 BERTRAND CHOWDARY MD Jan 07, 2020 19:44
--- NOTE | 2020-01-07 13:20 | NUR ---
report given to CHAMP Kingsley. pt transferred to room 207
--- NOTE | 2020-01-07 18:47 | NUR ---
SW following. Spoke with RN and reviewed chart. Pt from home with a friend. Pt now requiring 4l 02. Pt has home 02. Pt on IV Solo-medrol. Pt transferred to and [facility] to follow.
[2020-01-07] MEDS: ATORVASTATIN CALCIUM 40 MG TABLET. PO SCH (20:50)
[2020-01-07] MEDS: TAMSULOSIN 0.4 MG CAP.ER.24H. PO SCH (20:50)
[2020-01-08 03:05] VITALS: BP 92/57
[2020-01-08 05:25] LABS: ALBUMIN 2.7 g/dL (3.4-5.0); ALBUMIN/GLOBULIN RATIO 0.8 (1.0-1.7); CALCIUM 8.3 mg/dL (8.5-10.1); CREATININE 0.9 mg/dL (0.7-1.3); GFR 83.4; POTASSIUM 4.2 mmol/L (3.5-5.1); TOTAL BILIRUBIN 0.2 mg/dL (0.2-1.0); TOTAL PROTEIN 6.1 g/dL (6.4-8.2)
[2020-01-08] MEDS: IPRATRPIUM/ALBUTEROL 0.5/2.5MG 3 ML NEBU. NEB SCH ×6 (06:00→19:47)
[2020-01-08] MEDS: methylPREDNISolone SOD SUCC PF 40 MG/ML VIAL. IV SCH ×3 (06:23→20:24)
[2020-01-08 07:00] VITALS: BP 102/66
[2020-01-08] MEDS: BUDESONIDE 0.5 MG/2 ML NEBU. NEB SCH ×2 (07:31→19:46)
[2020-01-08] MEDS: ASPIRIN ENTERIC COATED 81 MG TABLET.DR. PO SCH (08:58)
[2020-01-08] MEDS: TICAGRELOR 90 MG TABLET. PO SCH ×2 (08:58→20:23)
[2020-01-08] MEDS: PANTOPRAZOLE 40 MG TABLET.DR. PO SCH (08:58)
[2020-01-08] MEDS: ZINC SULFATE 220 MG CAPSULE. PO SCH (08:58)
[2020-01-08] MEDS: METOPROLOL SUCC 24HR ER 25 MG TAB.ER.24H. PO SCH (08:59)
[2020-01-08] MEDS: FLUTICASONE 50MCG/NASAL SPRAY 16GM BOTTLE. NS SCH (09:00)
[2020-01-08] MEDS ORDERED: LISINOPRIL 5 MG TABLET. PO SCH (09:00)
[2020-01-08] MEDS: ENOXAPARIN 40 MG/0.4 ML SYRINGE. SQ SCH (09:00)
--- NOTE | 2020-01-08 09:32 | PDOC ---
CARDIOLOGY PROGRESS NOTE SUBJECTIVE: No chest pain Denies any arrhythmias OBJECTIVE: Vital Signs/I&O: Vital Signs Date Time Temp Pulse Resp B/P (MAP) Pulse Ox O2 Delivery O2 Flow Rate FiO2 01/08/20 08:59 101 102/66 01/08/20 07:36 97 Nasal Cannula 3.0 01/08/20 07:00 97.7 20 97.7 I & O 01/07/20 01/07/20 01/08/20 15:00 23:00 07:00 Intake Total 50 ml 500 ml Output Total 200 ml 400 ml 2 ml Balance -200 ml -350 ml 498 ml Objective: General: Alert, Oriented X3, Cooperative, No acute distress HEENT: Atraumatic Lungs: Other (diminished, O2 supplement CT reviewed) Heart: Regular rate (SR) Abdomen: Soft, No tenderness Extremities: No cyanosis, No edema Skin: No breakdown, No significant lesion Neuro: Normal speech, Sensation intact Psych/Mental Status: Mental status NL, Mood NL MUSCULOSKELETAL: Osteoarthritic changes both hands CURRENT MEDICATIONS: Current Medications Medications (Trade) Dose Ordered Sig/Royal Route PRN Reason Start Time Stop Time Status Last Admin Dose Admin Metoprolol Succinate (Toprol Xl) 25 mg DAILY PO 01/08/20 09:00 01/08/20 08:59 Metoprolol Succinate (Toprol Xl) 12.5 mg 1X ONCE PO 01/07/20 11:45 01/07/20 11:46 DC 01/07/20 11:54 DIAGNOSTIC TESTING: Labs reviewed Labs: Laboratory Tests 01/08/20 04:45 Laboratory Tests Test 01/08/20 04:45 Sodium Level 139 mmol/L (136-145) Potassium Level 4.2 mmol/L (3.5-5.1) Chloride Level 104 mmol/L (98-107) Carbon Dioxide Level 30 mmol/L (21-32) Anion Gap 5 (6-14) L Blood Urea Nitrogen 33 mg/dL (8-26) H Creatinine 0.9 mg/dL (0.7-1.3) Estimated GFR (Cockcroft-Gault) 83.4 BUN/Creatinine Ratio 37 (6-20) H Glucose Level 166 mg/dL (70-99) H Calcium Level 8.3 mg/dL (8.5-10.1) L Total Bilirubin 0.2 mg/dL (0.2-1.0) Aspartate Amino Transf (AST/SGOT) 19 U/L (15-37) Alkaline Phosphatase 67 U/L (46-116) Total Protein 6.1 g/dL (6.4-8.2) L Albumin 2.7 g/dL (3.4-5.0) L Albumin/Globulin Ratio 0.8 (1.0-1.7) L ASSESSMENT: 1. Atypical Chest pain: doubt ACS. Appears pleuritic, trops nml. No PE per CTA 2. Covid-19: + 10 days ago and now negative 3. Asymptomatic PSVT: noted with paroxysms 4. Severe COPD: O2 dependent 5. NSCLCA: Stage 2 squamous cell 6. Wt loss/anorexia: reported 40# loss in 2 months and has been taking edible marijuana to increase appetite. Defer to PCP 7. CAD; Recent PCI with stents at [place] 8. Recent TAA endovascular repair: done prior to PCI 9. HLP 10. Continued tobaccoism PLAN: 1. Still with significant paroxysms of SVT. 2. Unable to start amiodarone due to lung disease, unable to use Class Ic due to CAD. 3. Will start digoxin and continue low dose metoprolol. Supportive care. Thanks Justicifation of Admission Dx: Justifications for Admission: Justification of Admission Dx: Yes Respiratory Failure: Severe Resp Distress JARETH PINEDA MD Jan 08, 2020 09:32
[2020-01-08] MEDS ORDERED: DIGOXIN IV 500 MCG/2 ML AMPUL. IV ONE (09:45)
--- NOTE | 2020-01-08 10:00 | PDOC ---
PULMONARY PROGRESS NOTES DATE: 01/08/20 TIME: 09:58 Subjective FEELS BETTER no CP Vitals Vital Signs Date Time Temp Pulse Resp B/P (MAP) Pulse Ox O2 Delivery O2 Flow Rate FiO2 01/08/20 08:59 101 102/66 01/08/20 07:36 97 Nasal Cannula 3.0 01/08/20 07:00 97.7 20 97.7 Comments visual exam done due to COVID19 no distress, no rash General: Alert, No acute distress Labs Laboratory Tests Test 01/06/20 18:10 01/06/20 21:10 01/07/20 02:30 01/08/20 04:45 Coronavirus (PCR) Not detected (Not Detected) Troponin I Quantitative < 0.017 ng/mL (0.000-0.055) < 0.017 ng/mL (0.000-0.055) White Blood Count 10.8 x10^3/uL (4.0-11.0) Red Blood Count 3.63 x10^6/uL (4.30-5.70) Hemoglobin 10.7 g/dL (13.0-17.5) Hematocrit 30.7 % (39.0-53.0) Mean Corpuscular Volume 85 fL (79-100) Mean Corpuscular Hemoglobin 29 pg (25-35) Mean Corpuscular Hemoglobin Concent 35 g/dL (31-37) Red Cell Distribution Width 14.4 % (11.5-14.5) Platelet Count 237 x10^3/uL (140-400) Neutrophils (%) (Auto) 92 % (31-73) Lymphocytes (%) (Auto) 5 % (24-48) Monocytes (%) (Auto) 3 % (0-9) Eosinophils (%) (Auto) 0 % (0-3) Basophils (%) (Auto) 0 % (0-3) Neutrophils # (Auto) 10.0 x10^3/uL (1.8-7.7) Lymphocytes # (Auto) 0.5 x10^3/uL (1.0-4.8) Monocytes # (Auto) 0.3 x10^3/uL (0.0-1.1) Eosinophils # (Auto) 0.0 x10^3/uL (0.0-0.7) Basophils # (Auto) 0.0 x10^3/uL (0.0-0.2) Sodium Level 137 mmol/L (136-145) 139 mmol/L (136-145) Potassium Level 4.4 mmol/L (3.5-5.1) 4.2 mmol/L (3.5-5.1) Chloride Level 103 mmol/L (98-107) 104 mmol/L (98-107) Carbon Dioxide Level 29 mmol/L (21-32) 30 mmol/L (21-32) Anion Gap 5 (6-14) 5 (6-14) Blood Urea Nitrogen 29 mg/dL (8-26) 33 mg/dL (8-26) Creatinine 0.9 mg/dL (0.7-1.3) 0.9 mg/dL (0.7-1.3) Estimated GFR (Cockcroft-Gault) 83.4 83.4 Glucose Level 139 mg/dL (70-99) 166 mg/dL (70-99) Calcium Level 8.5 mg/dL (8.5-10.1) 8.3 mg/dL (8.5-10.1) Thyroid Stimulating Hormone (TSH) 0.179 uIU/mL (0.358-3.74) Free Thyroxine 1.17 ng/dL (0.76-1.46) BUN/Creatinine Ratio 37 (6-20) Total Bilirubin 0.2 mg/dL (0.2-1.0) Aspartate Amino Transf (AST/SGOT) 19 U/L (15-37) Alanine Aminotransferase (ALT/SGPT) 36 U/L (16-63) Alkaline Phosphatase 67 U/L (46-116) Total Protein 6.1 g/dL (6.4-8.2) Albumin 2.7 g/dL (3.4-5.0) Albumin/Globulin Ratio 0.8 (1.0-1.7) Laboratory Tests Test 01/08/20 04:45 Sodium Level 139 mmol/L (136-145) Potassium Level 4.2 mmol/L (3.5-5.1) Chloride Level 104 mmol/L (98-107) Carbon Dioxide Level 30 mmol/L (21-32) Anion Gap 5 (6-14) Blood Urea Nitrogen 33 mg/dL (8-26) Creatinine 0.9 mg/dL (0.7-1.3) Estimated GFR (Cockcroft-Gault) 83.4 BUN/Creatinine Ratio 37 (6-20) Glucose Level 166 mg/dL (70-99) Calcium Level 8.3 mg/dL (8.5-10.1) Total Bilirubin 0.2 mg/dL (0.2-1.0) Aspartate Amino Transf (AST/SGOT) 19 U/L (15-37) Alanine Aminotransferase (ALT/SGPT) 36 U/L (16-63) Alkaline Phosphatase 67 U/L (46-116) Total Protein 6.1 g/dL (6.4-8.2) Albumin 2.7 g/dL (3.4-5.0) Albumin/Globulin Ratio 0.8 (1.0-1.7) Medications Active Scripts Medications Dose Route/Sig Max Daily Dose Days Date Category NITROGLYCERIN SubLingual (Nitroglycerin) 0.4 Mg Tab.subl 0.4 Mg SL PRN Q5MIN PRN 01/06/20 Reported Flonase Allergy Relief (Fluticasone Propionate) 9.9 Ml [place].susp 2 Sprays NS DAILY 01/06/20 Reported Protonix (Pantoprazole Sodium) 20 Mg Tablet.dr 40 Mg PO DAILY 01/06/20 Reported Metoprolol Succinate ( Xl ) (Metoprolol Succinate) 25 Mg Tab.er.24h 1 Tab PO DAILY 01/06/20 Reported Lisinopril 5 Mg Tablet 1 Tab PO DAILY 01/06/20 Reported Lisinopril 5 Mg Tablet 0.5 Tab PO QHS 06/09/19 Rx Metoprolol Succinate ( Xl ) (Metoprolol Succinate) 25 Mg Tab.er.24h 0.5 Tab PO DAILY 06/09/19 Rx Prednisone 20 Mg Tablet 1 Tab PO DAILY 5 06/08/19 Rx Duoneb 0.5-3(2.5) Mg/3 Ml (Albuterol/Ipratropium) 3 Ml Ampul.neb 3 Ml NEB Q4HRS 30 06/08/19 Rx Aspirin Ec (Aspirin) 81 Mg Tablet.dr 1 Tab PO DAILY 06/04/19 Reported Brilinta (Ticagrelor) 90 Mg Tablet 90 Mg PO BID 06/04/19 Reported Atorvastatin Calcium 80 Mg Tablet 80 Mg PO QHS 06/04/19 Reported Hydroxyzine Pamoate 50 Mg Capsule 50 Mg PO PRN DAILY PRN 06/04/19 Reported Proair Hfa Inhaler (Albuterol Sulfate) 8.5 Gm Hfa.aer.ad 1 Puff INH PRN Q6HRS PRN 11/27/17 Reported Symbicort 160-4.5 Mcg Inhaler (Budesonide/Formoterol Fumarate) 10.2 Gm Hfa.aer.ad 1 Puff IH BID 11/27/[address] CHEST Impression: No PE. No infiltrate. Right posterior perihilar scarring and pleural thickening is stable. No mass in the interval. Abdominal aortic aneurysm is stable. Aortic arch ulceration is present. Impression . 1. Dyspnea with chronic hypoxic respiratory failure along with pleuritic type chest pain. No evidence PE. 2. Stage 2, poorly differentiated squamous cell carcinoma. He was not a surgical candidate due to severity of COPD. He is status post radiation. 3. Previous abnormal CT chest with radiation-induced scarring in the right lower lobe posteromedially. REPEAT CT WITH NO SIG CHANGE 4. Oxygen dependent, severe chronic obstructive pulmonary disease. Plan . 1. Discussed with patient and Dr Wills. no PE on ct chest 2. Monitor clinically . Hold off on plasma or Remdesvir for now unless O2 requirement changes 3. Continue present oxygen. 4. Continue DuoNebs. 5. Lovenox for DVT prophylaxis / high dose 6. IV steroids./taper 7. continue with Radiation Oncology followup as well. nd home soon JESUS HARRY MD Jan 08, 2020 10:00
[2020-01-08] MEDS: DIGOXIN 125 MCG TABLET. PO SCH (10:13)
--- NOTE | 2020-01-08 10:33 | PDOC ---
[employer] PROGRESS NOTE Date of Service DOS: DATE: 01/08/20 TIME: 10:21 Chief Complaint Chief Complaint A/P: Acute on chronic hypoxic respiratory failure - likely COPD exacerbation. steroids, pulm consultation Chest pain - will obtain CTPA to r/o VTE as well as venous dopplers. Trend troponins. Telemetry. Cont brilinta, ASA, BB Acute exacerbation with chronic obstructive pulmonary disease - steroids, inhalers until COVID 19 negative, then transition to nebulizers. He may be better suited in negative pressure room in case BIPAP is necessary Coronary artery disease status post PCI - stable, will trend troponins, no missed doses. 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 Tobacco dependence, in remission. Protein malnutrition, present upon admission. Hyponatremia - improved. Likely hypovolemic FEN - cardiac diet PPX - lovenox FULL CODE. Dispo - inpatient for above History of Present Illness History of Present Illness Mr Fabian is a 68 yo M w/ PMHx lung ca (squamous cell, poorly differentiated), severe COPD on 3L NCO2, ex-smoker, CAD s/p LUCILLE (within past 30 days), thoracic aortic aneursym s/p graft repair and recent diagnosis of COVID 19 on 12/15/2019 (at [facility]) who p/w worsening dyspnea at home. He also notes pleuritic type chest pain on deep inspiration that is substernal and sharp, relieved with rest and shallow breathing. Worse with cough. Denies any fever, chills, no headaches, no nausea, vomiting, no diarrhea, no dysuria, no focal weakness. He has not had a repeat COVID 19 test since his positive diagnosis 22 days ago. CXR in ED concerning for spiculated appearance of the right hilum and increased opacity in the right upper lobe. Labs significant for WBC 14.4, Hb 11.8, platelets 215, NA 134, K4.9, BUN 24, CR 0.9, glucose 107, BNP 276, troponin 0. D-dimer 2.29 EKG consistent with sinus tachycardia. Ventricular rate of 123 bpm. Left axis noted. Enlarged P waves present. Pulmonary pattern appreciated. No acute ST segment elevation noted. BiPAP was initiated due to severe respiratory distress and hypoxia in ED. Symbicort inhaler treatments were administered given his history of positive COVID status. Initial CT PE study was attempted to be obtained however the patient's IV was malfunctioning. Given 125 mg IV Solu-Medrol. Admitted for further care. 01/05: CTPA negative for PE. Still with chest pain. Repeat COVID 19 swab obtained. 01/06: Afebrile overnight. Had some tachycardia after breakfast sustained in the 180s for ~6 minutes. Breathing improved, chest pain improved. COVID 19 negative. TSH 0.129 01/07: Tachycardia improved, patient placed on digoxin. He still notes intermittent elevation of blood pressure and heart rate with movement and with eating, he relates this pain to his history of abdominal hernia. Breathing on baseline O2 requirement. Still with mild pleuritic chest pain but this has improved. Vitals/I&O Vitals/I&O: Vital Signs Date Time Temp Pulse Resp B/P (MAP) Pulse Ox O2 Delivery O2 Flow Rate FiO2 01/08/20 10:14 101 102/66 01/08/20 07:36 97 Nasal Cannula 3.0 01/08/20 07:00 97.7 20 97.7 I & O 01/07/20 01/07/20 01/08/20 15:00 23:00 07:00 Intake Total 50 ml 500 ml Output Total 200 ml 400 ml 2 ml Balance -200 ml -350 ml 498 ml Physical Exam General: Alert, Oriented X3, Cooperative, No acute distress Heart: Regular rate (SR) Abdomen: Soft, No tenderness Extremities: No cyanosis, No edema Skin: No breakdown, No significant lesion Labs Labs: Laboratory Tests Test 01/08/20 04:45 Sodium Level 139 mmol/L (136-145) Potassium Level 4.2 mmol/L (3.5-5.1) Chloride Level 104 mmol/L (98-107) Carbon Dioxide Level 30 mmol/L (21-32) Anion Gap 5 (6-14) Blood Urea Nitrogen 33 mg/dL (8-26) Creatinine 0.9 mg/dL (0.7-1.3) Estimated GFR (Cockcroft-Gault) 83.4 BUN/Creatinine Ratio 37 (6-20) Glucose Level 166 mg/dL (70-99) Calcium Level 8.3 mg/dL (8.5-10.1) Total Bilirubin 0.2 mg/dL (0.2-1.0) Aspartate Amino Transf (AST/SGOT) 19 U/L (15-37) Alanine Aminotransferase (ALT/SGPT) 36 U/L (16-63) Alkaline Phosphatase 67 U/L (46-116) Total Protein 6.1 g/dL (6.4-8.2) Albumin 2.7 g/dL (3.4-5.0) Albumin/Globulin Ratio 0.8 (1.0-1.7) Review of Systems Review of Systems: Pleuritic chest pain, tachycardia. Denies fever, denies nausea, denies diaphoresis. Assessment and Plan Assessmemt and Plan Problems Medical Problems: (1) Acute on chronic respiratory failure with hypoxia Status: Acute (2) COPD exacerbation Status: Acute (3) COVID-19 Status: Acute Comment Review of Relevant I have reviewed the following items luis (where applicable) has been applied. Medications: Current Medications Medications (Trade) Dose Ordered Sig/Royal Route PRN Reason Start Time Stop Time Status Last Admin Dose Admin Metoprolol Succinate (Toprol Xl) 25 mg DAILY PO 01/08/20 09:00 01/08/20 08:59 Metoprolol Succinate (Toprol Xl) 12.5 mg 1X ONCE PO 01/07/20 11:45 01/07/20 11:46 DC 01/07/20 11:54 Digoxin (Lanoxin) 250 mcg 1X ONCE IV 01/08/20 09:45 01/08/20 09:46 DC 01/08/20 10:14 Digoxin (Lanoxin) 125 mcg DAILY PO 01/08/20 09:45 01/08/20 10:13 Justifications for Admission Other Justification DANG AGUILAR MD Jan 08, 2020 10:33
[2020-01-08 11:00] VITALS: BP 98/64
--- NOTE | 2020-01-08 14:26 | NUR ---
Pt had brief episode of SVT approximately 3 minutes. rate in the 190's. Had patient cough and vagal maneuver multiple times. Pt stated he could feel the tightness in his chest. Dr. Marcelo notified. No new orders at this time. Will continue to monitor and follow plan of care.
[2020-01-08 15:00] VITALS: BP 91/64
[2020-01-08 19:40] VITALS: BP 101/63
[2020-01-08] MEDS: TAMSULOSIN 0.4 MG CAP.ER.24H. PO SCH (20:23)
[2020-01-08] MEDS: ATORVASTATIN CALCIUM 40 MG TABLET. PO SCH (20:23)
[2020-01-08 23:55] VITALS: BP 106/69
[2020-01-09 04:30] VITALS: BP 103/71
[2020-01-09] MEDS: methylPREDNISolone SOD SUCC PF 40 MG/ML VIAL. IV SCH (06:25)
[2020-01-09 07:10] VITALS: BP 115/67
[2020-01-09] MEDS: BUDESONIDE 0.5 MG/2 ML NEBU. NEB SCH ×2 (07:10→19:35)
[2020-01-09] MEDS: IPRATRPIUM/ALBUTEROL 0.5/2.5MG 3 ML NEBU. NEB SCH ×5 (07:10→22:00)
[2020-01-09] MEDS ORDERED: DIGOXIN IV 500 MCG/2 ML AMPUL. IV ONE (08:45)
[2020-01-09] MEDS: FLUTICASONE 50MCG/NASAL SPRAY 16GM BOTTLE. NS SCH (09:00)
[2020-01-09] MEDS: TICAGRELOR 90 MG TABLET. PO SCH ×2 (09:04→20:53)
[2020-01-09] MEDS: ZINC SULFATE 220 MG CAPSULE. PO SCH (09:04)
[2020-01-09] MEDS: DIGOXIN 125 MCG TABLET. PO SCH (09:05)
[2020-01-09] MEDS: ASPIRIN ENTERIC COATED 81 MG TABLET.DR. PO SCH (09:05)
[2020-01-09] MEDS: PANTOPRAZOLE 40 MG TABLET.DR. PO SCH (09:05)
[2020-01-09] MEDS: METOPROLOL SUCC 24HR ER 25 MG TAB.ER.24H. PO SCH (09:13)
[2020-01-09] MEDS: ENOXAPARIN 40 MG/0.4 ML SYRINGE. SQ SCH (09:14)
[2020-01-09 11:00] VITALS: BP 119/71
--- NOTE | 2020-01-09 12:10 | PDOC ---
PULMONARY PROGRESS NOTES DATE: 01/09/20 TIME: 12:06 Subjective no soa no CP Vitals Vital Signs Date Time Temp Pulse Resp B/P (MAP) Pulse Ox O2 Delivery O2 Flow Rate FiO2 01/09/20 11:18 Nasal Cannula 3.0 01/09/20 11:00 97.8 86 22 119/71 (87) 95 97.8 Comments visual exam done due to COVID19 no distress, no rash General: Alert, No acute distress Extremities: No Edema Labs Laboratory Tests Test 01/08/20 04:45 Sodium Level 139 mmol/L (136-145) Potassium Level 4.2 mmol/L (3.5-5.1) Chloride Level 104 mmol/L (98-107) Carbon Dioxide Level 30 mmol/L (21-32) Anion Gap 5 (6-14) Blood Urea Nitrogen 33 mg/dL (8-26) Creatinine 0.9 mg/dL (0.7-1.3) Estimated GFR (Cockcroft-Gault) 83.4 BUN/Creatinine Ratio 37 (6-20) Glucose Level 166 mg/dL (70-99) Calcium Level 8.3 mg/dL (8.5-10.1) Total Bilirubin 0.2 mg/dL (0.2-1.0) Aspartate Amino Transf (AST/SGOT) 19 U/L (15-37) Alanine Aminotransferase (ALT/SGPT) 36 U/L (16-63) Alkaline Phosphatase 67 U/L (46-116) Total Protein 6.1 g/dL (6.4-8.2) Albumin 2.7 g/dL (3.4-5.0) Albumin/Globulin Ratio 0.8 (1.0-1.7) Medications Active Scripts Medications Dose Route/Sig Max Daily Dose Days Date Category NITROGLYCERIN SubLingual (Nitroglycerin) 0.4 Mg Tab.subl 0.4 Mg SL PRN Q5MIN PRN 01/06/20 Reported Flonase Allergy Relief (Fluticasone Propionate) 9.9 Ml [place].susp 2 Sprays NS DAILY 01/06/20 Reported Protonix (Pantoprazole Sodium) 20 Mg Tablet.dr 40 Mg PO DAILY 01/06/20 Reported Metoprolol Succinate ( Xl ) (Metoprolol Succinate) 25 Mg Tab.er.24h 1 Tab PO DAILY 01/06/20 Reported Lisinopril 5 Mg Tablet 1 Tab PO DAILY 01/06/20 Reported Lisinopril 5 Mg Tablet 0.5 Tab PO QHS 06/09/19 Rx Metoprolol Succinate ( Xl ) (Metoprolol Succinate) 25 Mg Tab.er.24h 0.5 Tab PO DAILY 06/09/19 Rx Prednisone 20 Mg Tablet 1 Tab PO DAILY 5 06/08/19 Rx Duoneb 0.5-3(2.5) Mg/3 Ml (Albuterol/Ipratropium) 3 Ml Ampul.neb 3 Ml NEB Q4HRS 30 06/08/19 Rx Aspirin Ec (Aspirin) 81 Mg Tablet.dr 1 Tab PO DAILY 06/04/19 Reported Brilinta (Ticagrelor) 90 Mg Tablet 90 Mg PO BID 06/04/19 Reported Atorvastatin Calcium 80 Mg Tablet 80 Mg PO QHS 06/04/19 Reported Hydroxyzine Pamoate 50 Mg Capsule 50 Mg PO PRN DAILY PRN 06/04/19 Reported Proair Hfa Inhaler (Albuterol Sulfate) 8.5 Gm Hfa.aer.ad 1 Puff INH PRN Q6HRS PRN 11/27/17 Reported Symbicort 160-4.5 Mcg Inhaler (Budesonide/Formoterol Fumarate) 10.2 Gm Hfa.aer.ad 1 Puff IH BID 11/27/[address] CHEST Impression: No PE. No infiltrate. Right posterior perihilar scarring and pleural thickening is stable. No mass in the interval. Abdominal aortic aneurysm is stable. Aortic arch ulceration is present. Impression . 1. Dyspnea with chronic hypoxic respiratory failure along with pleuritic type chest pain. No evidence PE. 2. Stage 2, poorly differentiated squamous cell carcinoma. He was not a surgical candidate due to severity of COPD. He is status post radiation. 3. Previous abnormal CT chest with radiation-induced scarring in the right lower lobe posteromedially. REPEAT CT WITH NO SIG CHANGE 4. Oxygen dependent, severe chronic obstructive pulmonary disease. Plan . 1. Discussed with patient. no PE on ct chest 2. Monitor clinically . No need for plasma or Remdesvir. O2 requirement stable 3. Continue present oxygen. 4. Continue DuoNebs. 5. Lovenox for DVT prophylaxis. 6. change to steroids./taper 7. continue with Radiation Oncology followup as well. ut JESUS Tarango MD Jan 09, 2020 12:10
--- NOTE | 2020-01-09 14:47 | PDOC ---
[employer] PROGRESS NOTE Date of Service DOS: DATE: 01/09/20 TIME: 14:45 Chief Complaint Chief Complaint A/P: Acute on chronic hypoxic respiratory failure - likely COPD exacerbation. steroids, pulm consultation Chest pain - will obtain CTPA to r/o VTE as well as venous dopplers. Trend troponins. Telemetry. Cont brilinta, ASA, BB Acute exacerbation with chronic obstructive pulmonary disease - steroids, inhalers until COVID 19 negative, then transition to nebulizers. He may be better suited in negative pressure room in case BIPAP is necessary Coronary artery disease status post PCI - stable, will trend troponins, no missed doses. 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 Tobacco dependence, in remission. Protein malnutrition, present upon admission. Hyponatremia - improved. Likely hypovolemic FEN - cardiac diet PPX - lovenox FULL CODE. Dispo - inpatient for above History of Present Illness History of Present Illness Mr Fabian is a 68 yo M w/ PMHx lung ca (squamous cell, poorly differentiated), severe COPD on 3L NCO2, ex-smoker, CAD s/p LUCILLE (within past 30 days), thoracic aortic aneursym s/p graft repair and recent diagnosis of COVID 19 on 12/15/2019 (at [facility]) who p/w worsening dyspnea at home. He also notes pleuritic type chest pain on deep inspiration that is substernal and sharp, relieved with rest and shallow breathing. Worse with cough. Denies any fever, chills, no headaches, no nausea, vomiting, no diarrhea, no dysuria, no focal weakness. He has not had a repeat COVID 19 test since his positive diagnosis 22 days ago. CXR in ED concerning for spiculated appearance of the right hilum and increased opacity in the right upper lobe. Labs significant for WBC 14.4, Hb 11.8, platelets 215, NA 134, K4.9, BUN 24, CR 0.9, glucose 107, BNP 276, troponin 0. D-dimer 2.29 EKG consistent with sinus tachycardia. Ventricular rate of 123 bpm. Left axis noted. Enlarged P waves present. Pulmonary pattern appreciated. No acute ST segment elevation noted. BiPAP was initiated due to severe respiratory distress and hypoxia in ED. Symbicort inhaler treatments were administered given his history of positive COVID status. Initial CT PE study was attempted to be obtained however the patient's IV was malfunctioning. Given 125 mg IV Solu-Medrol. Admitted for further care. 01/05: CTPA negative for PE. Still with chest pain. Repeat COVID 19 swab obtained. 01/06: Afebrile overnight. Had some tachycardia after breakfast sustained in the 180s for ~6 minutes. Breathing improved, chest pain improved. COVID 19 negative. TSH 0.129 01/07: Tachycardia improved, patient placed on digoxin. He still notes intermittent elevation of blood pressure and heart rate with movement and with eating, he relates this pain to his history of abdominal hernia. Breathing on baseline O2 requirement. Still with mild pleuritic chest pain but this has improved. 01/08: Tachycardia improved. Will discharge on digoxin. He is breathing on his baseline requirement of 3 L. Will discharge home with prednisone for 5 days. Vitals/I&O Vitals/I&O: Vital Signs Date Time Temp Pulse Resp B/P (MAP) Pulse Ox O2 Delivery O2 Flow Rate FiO2 01/09/20 11:18 Nasal Cannula 3.0 01/09/20 11:00 97.8 86 22 119/71 (87) 95 97.8 I & O 01/08/20 01/08/20 01/09/20 15:00 23:00 07:00 Intake Total 450 ml 420 ml 150 ml Output Total 100 ml 500 ml Balance 450 ml 320 ml -350 ml Physical Exam General: Alert, Oriented X3, Cooperative, No acute distress Heart: Regular rate (SR) Abdomen: Soft, No tenderness Extremities: No cyanosis, No edema Skin: No breakdown, No significant lesion Review of Systems Review of Systems: Denies shortness of breath, denies chest pain, denies fever. Assessment and Plan Assessmemt and Plan Problems Medical Problems: (1) Acute on chronic respiratory failure with hypoxia Status: Acute (2) COPD exacerbation Status: Acute (3) COVID-19 Status: Acute Comment Review of Relevant I have reviewed the following items luis (where applicable) has been applied. Medications: Current Medications Medications (Trade) Dose Ordered Sig/Royal Route PRN Reason Start Time Stop Time Status Last Admin Dose Admin Enoxaparin Sodium (Lovenox 40mg Syringe) 40 mg DAILY SQ 01/09/20 09:00 01/09/20 09:14 Digoxin (Lanoxin) 250 mcg 1X ONCE IV 01/09/20 08:45 01/09/20 08:46 DC 01/09/20 09:13 Justifications for Admission Other Justification DANG AGUILAR MD Jan 09, 2020 14:47
[2020-01-09] MEDS ORDERED: PRED-220 PO (14:58)
[2020-01-09] MEDS ORDERED: DIGO125T3 PO (14:59)
[2020-01-09 15:00] VITALS: BP 98/61
--- NOTE | 2020-01-09 15:03 | PDOC3 ---
Discharge Summary Visit Information Date of Admission: Jan 05, 2020 Date of Discharge: Jan 09, 2020 Final Diagnosis Problems Medical Problems: (1) Acute on chronic respiratory failure with hypoxia Status: Acute (2) COPD exacerbation Status: Acute (3) COVID-19 Status: Acute Brief Hospital Course Allergies Allergies Coded Allergies Type Severity Reaction Last Updated Verified No Known Drug Allergies 06/04/19 No Vital Signs Vital Signs Date Time Temp Pulse Resp B/P (MAP) Pulse Ox O2 Delivery O2 Flow Rate FiO2 01/09/20 11:18 Nasal Cannula 3.0 01/09/20 11:00 97.8 86 22 119/71 (87) 95 97.8 Lab Results Laboratory Tests Test 01/08/20 04:45 Sodium Level 139 mmol/L (136-145) Potassium Level 4.2 mmol/L (3.5-5.1) Chloride Level 104 mmol/L (98-107) Carbon Dioxide Level 30 mmol/L (21-32) Anion Gap 5 (6-14) Blood Urea Nitrogen 33 mg/dL (8-26) Creatinine 0.9 mg/dL (0.7-1.3) Estimated GFR (Cockcroft-Gault) 83.4 BUN/Creatinine Ratio 37 (6-20) Glucose Level 166 mg/dL (70-99) Calcium Level 8.3 mg/dL (8.5-10.1) Total Bilirubin 0.2 mg/dL (0.2-1.0) Aspartate Amino Transf (AST/SGOT) 19 U/L (15-37) Alanine Aminotransferase (ALT/SGPT) 36 U/L (16-63) Alkaline Phosphatase 67 U/L (46-116) Total Protein 6.1 g/dL (6.4-8.2) Albumin 2.7 g/dL (3.4-5.0) Albumin/Globulin Ratio 0.8 (1.0-1.7) Brief Hospital Course Mr. Carrero is a 69 old male who presented with COPD exacerbation, paroxysmal supraventricular tachycardia. Consults placed to cardiology and pulmonology. He was treated with steroids, then tapered. Digoxin was added for rate control. He was stable for discharge. Discharge Information Condition at Discharge: Improved Follow Up: Weeks Disposition/Orders: D/C to Home Scheduled Aspirin (Aspirin Ec) 81 Mg Tablet., 1 TAB PO DAILY for antiplt, #30 Ref 3 (Reported) Entered as Reported by: SARAH RODRIGUEZ on 06/04/19906 Last Action: Continued on 01/06/20736 by JOAN MIGUEL MD Atorvastatin Calcium (Atorvastatin Calcium) 80 Mg Tablet, 80 MG PO QHS for FOR HIGH CHOLESTEROL, (Reported) Entered as Reported by: SARAH RODRIGUEZ on 06/04/19906 Last Action: Converted on 01/06/20736 by JOAN MIGUEL MD Budesonide/Formoterol Fumarate (Symbicort 160-4.5 Mcg Inhaler) 10.2 Gm Hfa.aer.ad, 1 PUFF IH BID for COPD, (Reported) Entered as Reported by: YONIS PRICE on 11/27/17 1428 Last Action: Converted on 01/06/20736 by JOAN MIGUEL MD Digoxin (Digoxin) 125 Mcg Tablet, 125 MCG PO DAILY for PSVT, #30 Prescribed by: DANG AGUILAR MD on 01/09/20 145 Fluticasone Propionate (Flonase Allergy Relief) 9.9 Ml [place].susp, 2 SPRAYS NS DAILY for allergy, (Reported) Entered as Reported by: JAILYN CHA RN on 01/06/20709 Last Action: Converted on 01/06/20736 by JOAN MIGUEL MD Ipratropium/Albuterol Sulfate (Duoneb 0.5-3(2.5) Mg/3 Ml) 3 Ml Ampul.neb, 3 ML NEB Q4HRS for COPD for 30 Days, #180 Prescribed by: JOAN MIGUEL MD on 06/08/19939 Last Action: Continued on 01/06/20736 by JOAN MIGUEL MD Lisinopril (Lisinopril) 5 Mg Tablet, 0.5 TAB PO QHS for htn, #30 Ref 5 Prescribed by: JOAN MIGUEL MD on 06/09/19935 Lisinopril (Lisinopril) 5 Mg Tablet, 1 TAB PO DAILY for htn, #30 Ref 5 (Reported) Entered as Reported by: JAILYN CHA RN on 01/06/20709 Last Action: Continued on 01/06/20736 by JOAN MIGUEL MD Metoprolol Succinate (Metoprolol Succinate ( Xl )) 25 Mg Tab.er.24h, 1 TAB PO DAILY for htn, #30 Ref 5 (Reported) Entered as Reported by: JAILYN CHA RN on 01/06/20709 Last Action: New Order on 01/06/20709 by JAILYN HCA RN Pantoprazole Sodium (Protonix) 20 Mg Tablet.dr, 40 MG PO DAILY for gerd, (Reported) Entered as Reported by: JAILYN CHA RN on 01/06/20709 Last Action: Converted on 01/06/20736 by JOAN MIGUEL MD Prednisone (Prednisone ) 10 Mg Tablet, 30 MG PO DAILY for COPD for 5 Days, #15 Prescribed by: DANG AGUILAR MD on 01/09/208 Ticagrelor (Brilinta) 90 Mg Tablet, 90 MG PO BID for blood thinner, (Reported) Entered as Reported by: SARAH RODRIGUEZ on 06/04/19906 Last Action: Continued on 01/06/20736 by JOAN MIGUEL MD Scheduled PRN Albuterol Sulfate (Proair Hfa Inhaler) 8.5 Gm Hfa.aer.ad, 1 PUFF INH PRN Q6HRS PRN for SHORTNESS OF BREATH, (Reported) Entered as Reported by: YONIS PRICE on 11/27/17 142 Last Action: Continued on 01/06/20736 by JOAN MIGUEL MD Hydroxyzine Pamoate (Hydroxyzine Pamoate) 50 Mg Capsule, 50 MG PO PRN DAILY PRN for ANXIETY / AGITATION, (Reported) Entered as Reported by: SARAH RODRIGUEZ on 06/04/19906 Last Action: Converted on 01/06/20736 by JOAN MIGUEL MD Nitroglycerin (NITROGLYCERIN SubLingual) 0.4 Mg Tab.subl, 0.4 MG SL PRN Q5MIN PRN for CHEST PAIN, (Reported) Entered as Reported by: JAILYN CHA RN on 01/06/20709 Last Action: Continued on 01/06/20736 by JOAN MIGUEL MD Discontinued Medications Metoprolol Succinate (Metoprolol Succinate ( Xl )) 25 Mg Tab.er.24h, 0.5 TAB PO DAILY for blood pressure, #30 Ref 5 Prescribed by: JOAN MIGUEL MD on 06/09/19 0936 Last Action: Continued on 01/06/20 07 by JOAN MIGUEL MD Prednisone (Prednisone) 20 Mg Tablet, 1 TAB PO DAILY for COPD for 5 Days, #5 Prescribed by: JOAN MIGUEL MD on 06/08/19 0940 Justicifation of Admission Dx: Justifications for Admission: Justification of Admission Dx: Yes Respiratory Failure: Severe Resp Distress DANG AGUILAR MD Jan 09, 2020 15:03
[2020-01-09 19:00] VITALS: BP 100/75
--- NOTE | 2020-01-09 19:25 | NUR ---
Pt sitting on side of bed assessment completed vs obtained poc explained will resume care and continue to monitor pt.
[2020-01-09] MEDS: TAMSULOSIN 0.4 MG CAP.ER.24H. PO SCH (20:53)
[2020-01-09] MEDS: ATORVASTATIN CALCIUM 40 MG TABLET. PO SCH (20:54)
[2020-01-09 23:00] VITALS: BP 112/73
[2020-01-10 03:10] VITALS: BP 93/61
[2020-01-10] MEDS: PANTOPRAZOLE 40 MG TABLET.DR. PO SCH (06:11)
[2020-01-10 07:00] VITALS: BP 95/65
[2020-01-10] MEDS: IPRATRPIUM/ALBUTEROL 0.5/2.5MG 3 ML NEBU. NEB SCH ×3 (07:21→15:13)
[2020-01-10] MEDS: BUDESONIDE 0.5 MG/2 ML NEBU. NEB SCH (07:21)
[2020-01-10] MEDS ORDERED: predniSONE 10 MG TABLET PO SCH (09:00)
[2020-01-10] MEDS: METOPROLOL SUCC 24HR ER 25 MG TAB.ER.24H. PO SCH (09:27)
[2020-01-10] MEDS: TICAGRELOR 90 MG TABLET. PO SCH (09:28)
[2020-01-10] MEDS: ASPIRIN ENTERIC COATED 81 MG TABLET.DR. PO SCH (09:28)
[2020-01-10] MEDS: DIGOXIN 125 MCG TABLET. PO SCH (09:28)
[2020-01-10] MEDS: ZINC SULFATE 220 MG CAPSULE. PO SCH (09:28)
[2020-01-10] MEDS: ENOXAPARIN 40 MG/0.4 ML SYRINGE. SQ SCH (09:29)
[2020-01-10] MEDS: FLUTICASONE 50MCG/NASAL SPRAY 16GM BOTTLE. NS SCH (09:31)
--- NOTE | 2020-01-10 09:48 | PDOC ---
PULMONARY PROGRESS NOTES DATE: 01/10/20 TIME: 09:47 Subjective no soa no CP Vitals Vital Signs Date Time Temp Pulse Resp B/P (MAP) Pulse Ox O2 Delivery O2 Flow Rate FiO2 01/10/20 09:28 94 95/65 01/10/20 07:22 100 Nasal Cannula 4.0 01/10/20 07:00 97.7 20 97.7 Comments visual exam done due to COVID19 no distress, no rash General: Alert, No acute distress Lungs: Clear Cardiovascular: S1 Abdomen: Soft Neuro Exam: Alert Extremities: No Edema Medications Active Scripts Medications Dose Route/Sig Max Daily Dose Days Date Category NITROGLYCERIN SubLingual (Nitroglycerin) 0.4 Mg Tab.subl 0.4 Mg SL PRN Q5MIN PRN 01/06/20 Reported Flonase Allergy Relief (Fluticasone Propionate) 9.9 Ml [place].susp 2 Sprays NS DAILY 01/06/20 Reported Protonix (Pantoprazole Sodium) 20 Mg Tablet.dr 40 Mg PO DAILY 01/06/20 Reported Metoprolol Succinate ( Xl ) (Metoprolol Succinate) 25 Mg Tab.er.24h 1 Tab PO DAILY 01/06/20 Reported Lisinopril 5 Mg Tablet 1 Tab PO DAILY 01/06/20 Reported Lisinopril 5 Mg Tablet 0.5 Tab PO QHS 06/09/19 Rx Metoprolol Succinate ( Xl ) (Metoprolol Succinate) 25 Mg Tab.er.24h 0.5 Tab PO DAILY 06/09/19 Rx Prednisone 20 Mg Tablet 1 Tab PO DAILY 5 06/08/19 Rx Duoneb 0.5-3(2.5) Mg/3 Ml (Albuterol/Ipratropium) 3 Ml [place].neb 3 Ml NEB Q4HRS 30 06/08/19 Rx Aspirin Ec (Aspirin) 81 Mg Tablet.dr 1 Tab PO DAILY 06/04/19 Reported Brilinta (Ticagrelor) 90 Mg Tablet 90 Mg PO BID 06/04/19 Reported Atorvastatin Calcium 80 Mg Tablet 80 Mg PO QHS 06/04/19 Reported Hydroxyzine Pamoate 50 Mg Capsule 50 Mg PO PRN DAILY PRN 06/04/19 Reported Proair Hfa Inhaler (Albuterol Sulfate) 8.5 Gm Hfa.aer.ad 1 Puff INH PRN Q6HRS PRN 11/27/17 Reported Symbicort 160-4.5 Mcg Inhaler (Budesonide/Formoterol Fumarate) 10.2 Gm Hfa.aer.ad 1 Puff IH BID 11/27/[address] CHEST Impression: No PE. No infiltrate. Right posterior perihilar scarring and pleural thickening is stable. No mass in the interval. Abdominal aortic aneurysm is stable. Aortic arch ulceration is present. Impression . 1. Dyspnea with chronic hypoxic respiratory failure along with pleuritic type chest pain. No evidence PE. 2. Stage 2, poorly differentiated squamous cell carcinoma. He was not a surgical candidate due to severity of COPD. He is status post radiation. 3. Previous abnormal CT chest with radiation-induced scarring in the right lower lobe posteromedially. REPEAT CT WITH NO SIG CHANGE 4. Oxygen dependent, severe chronic obstructive pulmonary disease. 5. PSVT Plan . 1. Discussed with patient. no PE on ct chest 2. Monitor clinically . No need for plasma or Remdesvir. O2 requirement stable 3. Continue present oxygen. 4. Continue DuoNebs. 5. Lovenox for DVT prophylaxis. 6. PO steroids./taper 7. continue with Radiation Oncology followup as well. dc home if ok with cardiology JESUS HARRY MD Jan 10, 2020 09:48
[2020-01-10 11:00] VITALS: BP 94/54
--- NOTE | 2020-01-10 12:01 | NUR ---
SS following for discharge planning. SS reviewed pt chart and discussed with pt RN. Pt is from home and is currently requiring oxygen. COVID19 negative. Pt has home oxygen at home through [facility], ; fax [phone]. PT/OT recommended home independent. SS met with pt to discuss discharge planning. Pt requesting BIPAP or CPAP for home. SS contacted Amie at [facility] and discussed. Amie reported that she would contact Pulmonology and would contact SS with more information. SS will continue to follow for discharge planning.
--- NOTE | 2020-01-10 14:00 | PDOC ---
JAKOB PUCKETT COMPOSITION FLOOR SETTER 01/10/20 1400: CARDIO Progress Notes Date and Time Date of Service 01/10/2020 Time of Evaluation 1030 Subjective Subjective: No Chest Pain, No shortness of breath, No Palpitations Vitals Vitals Vital Signs Date Time Temp Pulse Resp B/P (MAP) Pulse Ox O2 Delivery O2 Flow Rate FiO2 01/10/20 11:12 95 Nasal Cannula 3.0 01/10/20 11:00 98.0 93 20 94/54 (67) 98.0 Weight Weight [ ] Input and Output Intake and Output Intake and Output 01/10/20 07:00 Intake Total 500 ml Output Total 550 ml Balance -50 ml Intake Oral 500 ml Output Urine Total 550 ml Microbiology Micro Microbiology 01/05/20 Blood Culture - Preliminary, Resulted NO GROWTH AFTER 4 DAYS Physical Exam HEENT: Neck Supple W Full Motion LUNGS: Other (diminished bases) Heart: S1S2, RRR (MAT/WAP) Abdomen: Soft N/T Extremities: No Calf Tenderness Neurology: alert, oriented, follow commands Assessment Assessment 1. Atypical Chest pain: doubt ACS. Appears pleuritic, trops nml. No PE per CTA 2. Covid-19: + 10 days ago and now negative 3. Asymptomatic PSVT: further review noted with MAT/WAP 4. Severe COPD: O2 dependent 5. NSCLCA: Stage 2 squamous cell 6. Wt loss/anorexia: reported 40# loss in 2 months and has been taking edible marijuana to increase appetite. Defer to PCP 7. CAD; BMS to proximal LAD and OM on 05/03/2019 so his endovascular repair is possibly late Mar per his description. EF was 45-50% 8. Recent TAA endovascular repair: done prior to PCI 9. HLP 10. Continued tobaccoism Recommendations 1. Continue toprol XL to 25 mg. TTE today. Anticipate DC today 2. Continue ASA/brilinta. Continue statin. 3. He would like to continue to follow up with Dr. Chowdary on February 09 10 AM. Will arrange for MCOT and note any further arrhythmia 4. Smoking cessation Justicifation of Admission Dx: Justifications for Admission: Justification of Admission Dx: Yes Respiratory Failure: Severe Resp Distress BERTRAND CHOWDARY MD 01/10/201938: CARDIO Progress Notes Assessment Assessment Patient seen and examined. Agree with SAUSAGE LINKER's assessment and plan. CP atypical and probably pleuritic. SC ruled out Tele did not show any significant arrhythmias Plan ischemic evaluation as outpatient JAKOB PUCKETT APRN Jan 10, 2020 14:00 BERTRAND CHOWDARY MD Jan 10, 2020 19:39
--- NOTE | 2020-01-10 14:11 | NUR ---
SS following up with discharge planning. Discharge order on the chart for home with self care. SS notified Amie at [facility]. Amie reported that there is nothing in Dr. Perdue's note as of right now indicating need for CPAP or BIPAP. She reported that she would contact pt at home tomorrow and pt would follow up with Dr. Christopher at Pulmonology. Pt's RN notified.
[2020-01-10 15:00] VITALS: BP 103/62
--- NOTE | 2020-01-10 15:45 | PDOC3 ---
Discharge Summary Visit Information Date of Admission: Jan 06, 2020 Date of Discharge: Jan 10, 2020 Admitting Diagnosis Comment: Acute on chronic hypoxic respiratory failure - likely COPD exacerbation. steroids, pulm consultation Chest pain - will obtain CTPA to r/o VTE as well as venous dopplers. Trend troponins. Telemetry. Cont brilinta, ASA, BB Acute exacerbation with chronic obstructive pulmonary disease - steroids, in halers until COVID 19 negative, then transition to nebulizers. He may be better suited in negative pressure room in case BIPAP is necessary Coronary artery disease status post PCI - stable, will trend troponins, no missed doses. 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 Tobacco dependence, in remission. Protein malnutrition, present upon admission. Final Diagnosis Problems Medical Problems: (1) Acute on chronic respiratory failure with hypoxia Status: Acute (2) COPD exacerbation Status: Acute (3) COVID-19 Status: Acute Acute on chronic hypoxic respiratory failure - likely COPD exacerbation. steroids, pulm consultation Chest pain - negative CTPA to r/o VTE as well as venous dopplers. 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 Tobacco dependence, in remission. Protein malnutrition, present upon admission. Hyponatremia - improved. Likely hypovolemic Brief Hospital Course Allergies Allergies Coded Allergies Type Severity Reaction Last Updated Verified No Known Drug Allergies 06/04/19 No Vital Signs Vital Signs Date Time Temp Pulse Resp B/P (MAP) Pulse Ox O2 Delivery O2 Flow Rate FiO2 01/10/20 15:14 95 Nasal Cannula 2.0 01/10/20 11:00 98.0 93 20 94/54 (67) 98.0 Brief Hospital Course History of Present Illness Mr Fabian is a 68 yo M w/ PMHx lung ca (squamous cell, poorly differentiated), severe COPD on 3L NCO2, ex-smoker, CAD s/p LUCILLE (within past 30 days), thoracic aortic aneursym s/p graft repair and recent diagnosis of COVID 19 on 12/15/2019 (at [facility]) who p/w worsening dyspnea at home. He also notes pleuritic type chest pain on deep inspiration that is substernal and sharp, relieved with rest and shallow breathing. Worse with cough. Denies any fever, chills, no headaches, no nausea, vomiting, no diarrhea, no dysuria, no focal weakness. He has not had a repeat COVID 19 test since his positive diagnosis 22 days ago. CXR in ED concerning for spiculated appearance of the right hilum and increased opacity in the right upper lobe. Labs significant for WBC 14.4, Hb 11.8, platelets 215, NA 134, K4.9, BUN 24, CR 0.9, glucose 107, BNP 276, troponin 0. D-dimer 2.29 EKG consistent with sinus tachycardia. Ventricular rate of 123 bpm. Left axis noted. Enlarged P waves present. Pulmonary pattern appreciated. No acute ST segment elevation noted. BiPAP was initiated due to severe respiratory distress and hypoxia in ED. Symbicort inhaler treatments were administered given his history of positive COVID status. Initial CT PE study was attempted to be obtained however the patient's IV was malfunctioning. Given 125 mg IV Solu-Medrol. Admitted for further care. 01/05: CTPA negative for PE. Still with chest pain. Repeat COVID 19 swab obtained. 01/06: Afebrile overnight. Had some tachycardia after breakfast sustained in the 180s for ~6 minutes. Breathing improved, chest pain improved. COVID 19 negative. TSH 0.129 01/07: Tachycardia improved, patient placed on digoxin. He still notes inte rmittent elevation of blood pressure and heart rate with movement and with eating, he relates this pain to his history of abdominal hernia. Breathing on baseline O2 requirement. Still with mild pleuritic chest pain but this has improved. 01/08: Tachycardia improved. Will discharge on digoxin. He is breathing on his baseline requirement of 3 L. Will discharge home with prednisone for 5 days. 01/09: No acute events reported overnight, case discussed with nursing staff patient in no acute distress no complaints during my visit, patient in good spirits to be going home we discussed the signs and symptoms of concern when to seek medical attention. He has oxygen at home and all of his concerns were addressed to the best of my abilities Assessment Assessment IMAGING REPORT Signed PATIENT: ENMA LINDER: [id number] : 1950 LOCATION: [address] [place] [address] AGE: 69 SEX: M EXAM STATUS: ADM IN ORD. PHYSICIAN: JOAN MIGUEL MD REASON: Chest pain, concern for PE PROCEDURE: CT ANGIOGRAPHY CHEST Examination: CT ANGIOGRAPHY CHEST History: Chest pain, concern for PE / Spl. Instructions: omni 350 100ml / History: Comparison/Correlation: None Findings: Axial images of the chest were obtained following IV contrast according to pulmonary arteriography protocol. Sagittal and coronal reformatted images were provided. Maximum intensity projection images were provided. Pulmonary arterial vasculature is normal with no thromboembolic disease. Thoracic there is an ulceration involving the thoracic aortic arch at the inferior margin opposite the origin of the left subclavian artery. Great vessels of the aortic arch are widely patent at their origins. Extensive centrilobular emphysematous involvement of the lung rojas is noted. Scarring about the right hilum is evident. Posterior right pleural thickening is evident. No pneumothorax. Stent material involving the distal thoracic aorta and upper abdominal aorta. Abdominal aortic aneurysm at the esophageal hiatus level measuring up to 4.8 cm anteroposterior by 4.5 cm transverse is present. Radiopaque densities noted involving the upper abdomen about the celiac artery proximally. Large quantity of debris noted in the stomach. Bilateral main renal arteries are widely patent. Superior mesenteric artery is patent. Origin of the celiac artery is not well delineated but artifact due to surrounding metallic density. Bony structures are unremarkable for patient's age. Impression: No PE. No infiltrate. Right posterior perihilar scarring and pleural thickening is stable. No mass in the interval. Abdominal aortic aneurysm is stable. Aortic arch ulceration is present. Discharge Information Condition at Discharge: Improved Follow Up: Weeks Disposition/Orders: D/C to Home Scheduled Aspirin (Aspirin Ec) 81 Mg Tablet., 1 TAB PO DAILY for antiplt, #30 Ref 3 (Reported) Entered as Reported by: SARAH RODRIGUEZ on 06/04/19 0907 Last Action: Continued on 01/06/20736 by JOAN MIGUEL MD Atorvastatin Calcium (Atorvastatin Calcium) 80 Mg Tablet, 80 MG PO QHS for FOR HIGH CHOLESTEROL, (Reported) Entered as Reported by: SARAH RODRIGUEZ on 06/04/19 0907 Last Action: Converted on 01/06/20736 by JOAN MIGUEL MD Budesonide/Formoterol Fumarate (Symbicort 160-4.5 Mcg Inhaler) 10.2 Gm Hfa.aer .ad, 1 PUFF IH BID for COPD, (Reported) Entered as Reported by: YONIS PRICE on 11/27/17 1428 Last Action: Converted on 01/06/20736 by JOAN MIGUEL MD Digoxin (Digoxin) 125 Mcg Tablet, 125 MCG PO DAILY for PSVT, #30 Prescribed by: DANG AGUILAR MD on 01/09/20 1459 Fluticasone Propionate (Flonase Allergy Relief) 9.9 Ml [place].susp, 2 SPRAYS NS DAILY for allergy, (Reported) Entered as Reported by: JAILYN CHA RN on 01/06/20709 Last Action: Converted on 01/06/20736 by JOAN MIGUEL MD Ipratropium/Albuterol Sulfate (Duoneb 0.5-3(2.5) Mg/3 Ml) 3 Ml Ampul.neb, 3 ML NEB Q4HRS for COPD for 30 Days, #180 Prescribed by: JOAN MIGUEL MD on 06/08/19 0940 Last Action: Continued on 01/06/20736 by JOAN MIGUEL MD Lisinopril (Lisinopril) 5 Mg Tablet, 0.5 TAB PO QHS for htn, #30 Ref 5 Prescribed by: JOAN MIGUEL MD on 06/09/19 0936 Lisinopril (Lisinopril) 5 Mg Tablet, 1 TAB PO DAILY for htn, #30 Ref 5 (Reported) Entered as Reported by: JAILYN CHA RN on 01/06/20709 Last Action: Continued on 01/06/20736 by JOAN MIGUEL MD Metoprolol Succinate (Metoprolol Succinate ( Xl )) 25 Mg Tab.er.24h, 1 TAB PO DAILY for htn, #30 Ref 5 (Reported) Entered as Reported by: JAILYN CHA RN on 01/06/20709 Last Action: New Order on 01/06/20709 by JAILYN CHA RN Pantoprazole Sodium (Protonix) 20 Mg Tablet.dr, 40 MG PO DAILY for gerd, (Reported) Entered as Reported by: JAILYN CHA RN on 01/06/20709 Last Action: Converted on 01/06/20736 by JOAN MIGUEL MD Prednisone (Prednisone ) 10 Mg Tablet, 30 MG PO DAILY for COPD for 5 Days, #15 Prescribed by: DANG AGUILAR MD on 01/09/208 Ticagrelor (Brilinta) 90 Mg Tablet, 90 MG PO BID for blood thinner, (Reported) Entered as Reported by: SARAH RODRIGUEZ on 06/04/19906 Last Action: Continued on 01/06/20736 by JOAN MIGUEL MD Scheduled PRN Albuterol Sulfate (Proair Hfa Inhaler) 8.5 Gm Hfa.aer.ad, 1 PUFF INH PRN Q6HRS PRN for SHORTNESS OF BREATH, (Reported) Entered as Reported by: YONIS PRICE on 11/27/171427 Last Action: Continued on 01/06/20736 by JOAN MIGUEL MD Hydroxyzine Pamoate (Hydroxyzine Pamoate) 50 Mg Capsule, 50 MG PO PRN DAILY PRN for ANXIETY / AGITATION, (Reported) Entered as Reported by: SARAH RODRIGUEZ on 06/04/19906 Last Action: Converted on 01/06/20736 by JOAN MIGUEL MD Nitroglycerin (NITROGLYCERIN SubLingual) 0.4 Mg Tab.subl, 0.4 MG SL PRN Q5MIN PRN for CHEST PAIN, (Reported) Entered as Reported by: JAILYN CHA RN on 01/06/20709 Last Action: Continued on 01/06/20736 by JOAN MIGUEL MD Discontinued Medications Metoprolol Succinate (Metoprolol Succinate ( Xl )) 25 Mg Tab.er.24h, 0.5 TAB PO DAILY for blood pressure, #30 Ref 5 Prescribed by: JOAN MIGUEL MD on 3/4/20 0936 Last Action: Continued on 01/06/20 0737 by JOAN MIGUEL MD Prednisone (Prednisone) 20 Mg Tablet, 1 TAB PO DAILY for COPD for 5 Days, #5 Prescribed by: JOAN MIGUEL MD on 06/08/19 0940 Justicifation of Admission Dx: Justifications for Admission: Justification of Admission Dx: Yes Respiratory Failure: Severe Resp Distress HARITHA HU MD Jan 10, 2020 15:45
--- NOTE | 2020-01-10 17:08 | NUR ---
Have reviewed and agree with documentation by procurement intern and have made changes as needed
--- NOTE | 2020-01-10 18:07 | NUR ---
Discharge Note: SILAS LINDER WENDOVER Discharge instructions and discharge home medications reviewed with Patient and a copy given. All questions have been answered and understanding verbalized. The following instructions and handouts were given: HEART MONITOR INSTRUCTIONS, FOLLOW UP APPOINTMENT, MEDICATION EDUCATION Discontinued lines and drains: PERIPHERAL IV DISCONTINUED, DRESSING CLEAN, DRY AND intact. Patient discharged to HOME with ROOMMATE via WHEELCHAIR
--- NOTE | 2020-01-11 10:06 | CARD ---
MR#: [id number] Date of Study: 01/10/2020 Ordering Physician: JAKOB PUCKETT, Referring Physician: JAKOB PUCKETT, Tech: Jaye Mckeon APPROVED REPORT EXAM: Two-dimensional and M-mode echocardiogram with Doppler and color Doppler. Other Information Quality : AverageHR: 84bpm Technically limited study due to COPD INDICATION COPD Congestive Heart Failure SVT 2D DIMENSIONS RVDd3.3 (2.9-3.5cm)Left Atrium(2D)3.4 (1.6-4.0cm) IVSd1.1 (0.7-1.1cm)Aortic Root(2D)3.1 (2.0-3.7cm) LVDd4.0 (3.9-5.9cm)LVOT Diameter2.1 (1.8-2.4cm) PWd0.9 (0.7-1.1cm)LVDs2.7 (2.5-4.0cm) FS (%) 32.5 %SV43.0 ml LVEF(%)61.4 (>50%) Aortic Valve AoV Peak Aravind.114.0cm/sAoV VTI22.1cm AO Peak GR.5.2mmHgLVOT VTI 20.38cm AO Mean GR.4mmHg Mitral Valve MV E Peak Gr.5mmHgMV E Mean Gr.3mmHg TDI Lateral E' P. V10.94cm/sMedial E' P. V8.82cm/s Tricuspid Valve TR P. Hunnruvn689fw/sRAP HIDLYJYN7ftCz TR Peak Gr.79efCaVJQM69yfFr Pulmonary Vein S1 Egykszas20.4cm/sS2 Wxxxquxa45.19cm/s D2 Iffruocu49.2cm/sPVa sjoohqst39rhoq LEFT VENTRICLE The left ventricle is normal size. There is normal left ventricular wall thickness. The left ventricu lar systolic function is normal. The Ejection Fraction is 60%. There is normal LV segmental wall melba on. Transmitral Doppler flow pattern is Grade I-abnormal relaxation pattern. RIGHT VENTRICLE The right ventricle is normal size. There is normal right ventricular wall thickness. The right ventr icular systolic function is normal. ATRIA The left atrium size is normal. The right atrium size is normal. The interatrial septum is intact wit h no evidence for an atrial septal defect or patent foramen ovale as noted on 2-D or Doppler imaging. AORTIC VALVE The aortic valve is normal in structure and function. Doppler and Color Flow revealed no significant aortic regurgitation. There is no significant aortic valvular stenosis. Calculated aortic valve area is 3.06 cm2 with maximum pressure gradient of 8 mmHg and mean pressure gradient of 4 mmHg. MITRAL VALVE The mitral valve is normal in structure and function. There is no evidence of mitral valve prolapse. There is no mitral valve stenosis. Doppler and Color Flow revealed no mitral valve regurgitation note d. TRICUSPID VALVE The tricuspid valve is not well visualized. Doppler and Color Flow revealed trace tricuspid regurgita tion with an estimated PAP of 38 mmHg. There is no tricuspid valve stenosis. PULMONIC VALVE The pulmonic valve is not well visualized. Doppler and Color Flow revealed trace pulmonic valvular re gurgitation. GREAT VESSELS The aortic root is normal in size. The IVC is normal in size and collapses >50% with inspiration. PERICARDIAL EFFUSION There is no evidence of significant pericardial effusion. Critical Notification Critical Value: No <Conclusion> The left ventricular systolic function is normal. The Ejection Fraction is 60%. There is normal LV segmental wall motion. Trace tricuspid regurgitation with an estimated PAP of 38 mmHg. There is no evidence of significant pericardial effusion. Signed by : Curt Larry, Electronically Approved : 01/11/2020 10:05:55
== END 2020-01-10 18:11 | disposition home or self-care (01) | DRG 189 ==
LOC: ER 21:35 → 6 SOUTH 22:29 → 2 NORTH 01-07 12:47
PROVIDERS: ADMIT Internal Medicine; ATTEND Internal Medicine
PROC: 5A09357 Assistance with Respiratory Ventilation, Less than 24 Consecutive Hours, Continuous Positive Airway Pressure (ICD-10-PCS; principal; 2020-01-05)
DX: J96.21 Acute and chronic respiratory failure with hypoxia (principal); J44.1 Chronic obstructive pulmonary disease with (acute) exacerbation; E87.1 Hypo-osmolality and hyponatremia; I42.9 Cardiomyopathy, unspecified; E46 Unspecified protein-calorie malnutrition; I47.1 Supraventricular tachycardia; Z20.828 Contact with and (suspected) exposure to other viral communicable diseases; F17.210 Nicotine dependence, cigarettes, uncomplicated; I25.10 Atherosclerotic heart disease of native coronary artery without angina pectoris; I10 Essential (primary) hypertension; Z85.118 Personal history of other malignant neoplasm of bronchus and lung; Z95.5 Presence of coronary angioplasty implant and graft; R07.81 Pleurodynia; Z90.49 Acquired absence of other specified parts of digestive tract; C80.1 Malignant (primary) neoplasm, unspecified; E78.5 Hyperlipidemia, unspecified; M19.90 Unspecified osteoarthritis, unspecified site; Z71.6 Tobacco abuse counseling; Z68.21 Body mass index [BMI] 21.0-21.9, adult
CPT/HCPCS: 36415; 71045; 71275; 80048; 80053; 82728; 83615; 83735; 83880; 84439; 84443; 84484; 85007; 85025; 85379; 87040; 93005; 93306; 94640; 94660; 94760; 96374; J1160; J1650; J2920; J2930; J3010; J7030; J7512; Q9967; 99285-25; G0378; J7626; U0003-CS

== ENCOUNTER → 2020-01-31 | Outpatient (CLI) | payer OTHER, MEDICAID ==
[2020-01-10 15:00] VITALS: BP 103/62
[~2020-01-31] MED LIST changes: +DIGO125T3 PO; +FLUT9.9S NS; +IOHEXOL 300 MG/ML 100ML VIAL. IV ONE; +NITR0.4T22 SL; +PANT20TA2 PO; +PRED-220 PO
--- NOTE | 2020-01-31 13:25 | KCIC ---
Examination: CT ANGIOGRAPHY CHEST History: Reason: SOA, chest pain, hx lung cancer w/surgery, XRT, evaluate for PE / Spl. Instructions: 100mL Omni 300 / History: Comparison/Correlation: 01/06/2020 CTA of the chest Findings: Axial images of chest were obtained following IV contrast and pulmonary arteriography protocol. Sagittal and coronal reformatted images were provided. Maximum intensity projection images were provided. Pulmonary arterial vasculature is unremarkable with no evidence of PE. No enlarged thoracic lymph nodes. Scarring at the posterior right mid thoracic level adjacent to the pleura in paraspinal region is again seen. No new infiltrate. No new pulmonary nodule or mass right lateral pleural-based nodule measuring up to 0.8 cm is present. It is stable. No pneumothorax. Extensive emphysematous involvement of the lung rojas noted. Descending thoracic aortic aneurysm is present and stable. Stent graft material seen in the distal descending thoracic aorta and upper abdominal aorta. Ulceration of the thoracic aorta distal to the subclavian artery along the inferior margin is again seen. Aortic branches are unchanged. Bony structures are unremarkable. Impression: No PE. No infiltrate. Significant emphysematous involvement of the lung rojas. Aortic arch ulceration again seen. PQRS Compliance Statement: One or more of the following individualized dose reduction techniques were utilized for this examination: 1. Automated exposure control 2. Adjustment of the mA and/or kV according to patient size 3. Use of iterative reconstruction technique Electronically signed by: Taye Mcdonald MD (01/31/2020 1:22 PM) [id number]
== END ==
LOC: KCIC CT 12:23
PROVIDERS: ATTEND Internal Medicine Pulmonary Disease
DX: I71.2 Thoracic aortic aneurysm, without rupture (principal); J43.9 Emphysema, unspecified
CPT/HCPCS: 71275; Q9967

== ENCOUNTER → 2020-02-14 | Outpatient (CLI) | payer OTHER, MEDICAID ==
[~2020-02-14] MED LIST changes: -IOHEXOL 300 MG/ML 100ML VIAL. IV ONE; +ZOLPIDEM 5 MG TABLET. PO ONE
--- NOTE | 2020-02-16 15:20 | SLEEP ---
DATE OF STUDY: 02/14/2020 REFERRING PHYSICIAN: Galina Sidhu MD The patient is 69 years old who weighs 149 pounds with a BMI of 22. The patient's Hope score was 9. The patient uses oxygen 2 liters continuously at home. Sleep study was performed on room air. During the night study, the patient spent 417 minutes in bed and slept for 317 minutes with a sleep efficiency of 76%. Sleep latency was 35 minutes with a REM latency of 67 minutes. Sleep architecture showed an normal stage 1 sleep, increased stage 2 sleep, normal slow wave sleep and reduced REM sleep. During the night study, the patient had 10 obstructive apneas, 3 mixed apneas, 4 central apneas and 46 hypopneas. The patient's AHI was 12 per hour with a supine AHI of 20 per hour and a REM AHI of 22 per hour. EKG monitoring revealed an average heart rate of 98 beats per minute. No sustained arrhythmias observed. There was sinus tachycardia. Nocturnal oximetry study revealed an average oxygen saturation of 96% with the lowest of 82%. 99% of the time oxygen saturation remained between 80% and 89% and mostly above 86%. PLMS were seen at index of 7 per hour and 1 per hour caused EEG arousals. Due to low AHI, the patient did not meet the split night criteria for CPAP initiation. IMPRESSION: 1. Mild obstructive sleep apnea with moderate increase during supine and REM sleep. Total AHI of 12 per hour with a supine AHI of 20 per hour and a REM AHI of 22 per hour. 2. Mild sustained nocturnal hypoxia, likely secondary to hypoventilation and obstructive sleep apnea. The patient uses home oxygen at 2 liters continuously. 3. No clinically significant periodic limb movements. RECOMMENDATIONS: 1. If the patient is clinically symptomatic or has comorbid conditions, then the patient would benefit from treatment of sleep apnea with CPAP. Alternate treatment option would include oral appliance. 2. Once the patient is optimally treated, then follow up in 4-6 weeks to assess compliance with treatment and to document clinical improvement. 3. Avoid HRIS SPECIALIST depressants. 4. Avoid supine sleep. 5. If the patient does not undergo CPAP titration, then the patient should continue to use oxygen 2 liters at nighttime. 6. Caution regarding driving until the patient's hypersomnia is resolved with above recommendations. JESUS HARRY MD DR: GISEL/barbra JOB#: [id number] / [id number] GALINA Goodwin MD
== END ==
LOC: SLPLAB 18:40
PROVIDERS: ATTEND Internal Medicine Pulmonary Disease
DX: G47.33 Obstructive sleep apnea (adult) (pediatric) (principal)
CPT/HCPCS: 95810

== ENCOUNTER → 2020-02-29 | Outpatient (CLI) | payer OTHER, MEDICAID ==
[~2020-02-29] MED LIST changes: +APIX5TAB PO; +CLOP75TA PO; +REGADENOSON 0.4 MG/5 ML DISP.SYRIN. IV ONE; -ZOLPIDEM 5 MG TABLET. PO ONE
--- NOTE | 2020-02-29 18:33 | RAD ---
MR#: [id number] Date of Study: 02/29/2020 Ordering Physician: BERTRAND CHOWDARY, Referring Physician: BRIANNA SERRANO Tech: RT North (R) (N) APPROVED REPORT Test Type: Pharmacological Stress Nurse/Tech: CHAMP Valerio Test Indications: CAD, abnormal heart rhythm Cardiac History: stents, HTN, see EMR Medications: see EMR Medical History: see EMR Resting ECG: SR Resting Heart Rate: 85 bpm Resting Blood Pressure: 101/67mmHg Pretest Chest Pain: No chest pain Nurse/Tech Notes S1,S2, lungs coarse/diminished, O2 @ 3L per NC. VSS. Denied CP or SOA at this time. Consent: The procedure was explained to the patient in lay terms. Informed consent was witnessed. Haseeb eout was entered into [employer]. History and Stress Test performed by MAHOGANY Chapman Pharm. Details Pharmacologic stress testing was performed using Dobutamine with a maximal infusion of 40 mcg/mg/min. Stress Symptoms Pt denied symptoms. Max heart rate reached at 40mcg/kg/min of Dobutamine, had pt do a few leg kicks t o reach target heart rate. 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 Pt tolerated the testing well. VSS, denied chest pain or increased shortness of breath beyond his baseline. POST EXERCISE Reason for Termination: Reached target heart rate Target HR: 127 Max HR: 128 bpm 85% of Maximum Predicted HR: 150 bpm Max Blood Pressure: 122/57mmHg Blood Pressure response to exercise: Abnormal blood pressure response during stress. Heart Rate response to exercise: Normal heart rate response during stress. Chest Pain: No. Arrhythmia: No. A couple PVC's noted. INTERPRETATION Stress EKG Conclusion: The resting EKG showed a sinus rhythm with minimal nonspecific ST-T wave france es. The stress EKG showed no significant changes from baseline. No EKG evidence of stress-induced ischemia. Imaging Protocol IMAGE PROTOCOL: Rest Tc-99m/stress Tc-99m 1 day Rest: Stress: Viability: Radiopharm.Tc99m EoyjfhzsmTp15r Sestamibi Dose10.2mCi 33mCi Duration 13min. 13min. Img Date 02/29/2020 02/29/2020 Inj-Img Frqb40eoi. 60min. Rest Admin Site:IV - Right AntecubitalAdministrator:RT North (R)(N) Stress Admin Site: IV - Right AntecubitalAdministrator: MAHOGANY Chapman STRESS DATA End Diast. Vol.21.0mlLVEDV index BSA12.0ml End Syst. Vol.4.0mlLVESV index BSA2.0ml Myocardial Mass58.0gEject. Xumpfbge30.0% Stress Scores Regional WT2.00Summed WT24.00 Regional WM0.00Summed WM7.00 LV Perfusion The stress scans showed minimal inferior wall thinning. The rest scans showed mild inferior wall thinning. Nuclear imaging shows no reversible ischemia. Nuclear imaging shows fixed minimal inferior wall thinning more prominent on rest scans most consiste nt with an attenuation defect. Wall Motion Left ventricular systolic function is normal with no regional wall motion abnormalities and an ejecti on fraction of greater than 70% LV Perf. Quant 17 Seg. SSS2.00 17 Seg. SRS5.00 17 Seg. SDS0.00 Stress Defect Extent (% LAD)0.00Rest Defect Extent (% LAD)0.00Rev. Defect Extent (% LAD)0.00 Stress Defect Extent (% LCX) 5.00Rest Defect Extent (% LCX)12.50Rev. Defect Extent (% LCX)0.00 Stress Defect Extent (% RCA)0.00Rest Defect Extent (% RCA)31.10Rev. Defect Extent (% RCA)0.00 Stress Defect Extent (% SWATHI)0.90Rest Defect Extent (% SWATHI)13.00Rev. Defect Extent (% SWATHI)0.00 Conclusion 1. No EKG evidence of stress-induced ischemia. 2. Nuclear imaging shows no reversible ischemia. 3. Nuclear imaging shows minimal inferior wall thinning most prominent on the rest scans consistent w ith an attenuation defect. 4. Normal left ventricular systolic function with no regional wall motion abnormalities and an ejecti on fraction of greater than 70%. 5. Low risk dobutamine nuclear stress test. Signed by : Rigoberto Zhou MD Electronically Approved : 02/29/2020 18:33:31
== END ==
LOC: NM 09:04
PROVIDERS: ATTEND Internal Medicine Cardiovascular Disease
DX: I25.10 Atherosclerotic heart disease of native coronary artery without angina pectoris (principal); I10 Essential (primary) hypertension
CPT/HCPCS: 78452; 93017; A9500

== ENCOUNTER → 2020-02-29 | Outpatient (CLI) | payer OTHER, MEDICAID ==
[~2020-02-29] MED LIST changes: -REGADENOSON 0.4 MG/5 ML DISP.SYRIN. IV ONE
--- NOTE | 2020-02-29 15:06 | RAD ---
EXAM: CHEST PA LATERAL INDICATION: Reason: SHORTNESS OF AIR.. Right-sided chest pain.: . TECHNIQUE: PA and lateral views COMPARISON: 01/05/2020 chest x-ray FINDINGS: The heart size is normal. Mild aortic tortuosity is present with a stent graft present in the descending thoracic aorta, similar to prior. Right hilar mass and associated pleural-parenchymal scarring is slightly less conspicuous in the interval. Mediastinum is unremarkable. The lungs are hyperlucent in a pattern compatible with underlying COPD.. There is no pleural effusion or pneumothorax. There are no significant osseous abnormalities. IMPRESSION: COPD with posttreatment changes of the right hilum. No pneumothorax or other acute cardiopulmonary process. Discussed with Dr. Sidhu by telephone at 3:02 PM on 02/29/2020 Electronically signed by: Giuliana Bell MD (02/29/2020 3:03 PM) [id number]
== END ==
LOC: RAD 13:45
PROVIDERS: ATTEND Internal Medicine Pulmonary Disease
DX: J44.9 Chronic obstructive pulmonary disease, unspecified (principal)
CPT/HCPCS: 71046

== ENCOUNTER → 2020-03-06 | Outpatient (CLI) | payer OTHER, MEDICAID ==
[~2020-03-06] MED LIST changes: +ZOLPIDEM 5 MG TABLET. PO ONE
--- NOTE | 2020-03-07 09:21 | SLEEP ---
DATE OF STUDY: 03/06/2020 REFERRING PHYSICIAN: Dr. Nas Sidhu. The patient is 69 years old who weighs 145 pounds with a BMI of 22. The patient's What Cheer score was 4. The patient had a previous sleep study and was found to have mild JAMIE with moderate increase during supine and REM sleep. The patient's total AHI was 12 per hour with a supine AHI of 20 per hour and a REM AHI of 22 per hour. The patient was referred for CPAP titration study to [facility]. During the night study, the patient spent 419 minutes in bed and slept for 197 minutes with low sleep efficiency of 47%. Sleep latency was prolonged at 97 minutes with a REM latency of 202 minutes. Sleep architecture showed increased stage 1 sleep, normal stage 2 sleep, normal slow wave and reduced REM sleep, which was only 1% of the total sleep time. EKG monitoring revealed normal sinus rhythm, average heart rate 87 beats per minute, no sustained arrhythmias observed. No PLMs observed. The patient was started on CPAP at a pressure of 5 cm water and titrated up to 9 cm water. At the final pressure, the patient slept for 118 minutes. The patient had supine sleep throughout, but no REM sleep was observed. The patient's AHI was reduced to 1 per hour and oxygen saturation remained above 88%. IMPRESSION: 1. Sleep apnea diagnosed by previous sleep study. 2. No clinically significant periodic limb movements. RECOMMENDATIONS: 1. CPAP at 9 cm water completely eliminated the patient's sleep apnea and should be used on a nightly basis. 2. Follow up in 4-6 weeks to assess compliance with CPAP and to document clinical improvement. 3. Avoid REHABILITATION MANAGER depressants. 4. Cautioned regarding driving until symptoms of sleep apnea resolve with the use of CPAP. 5. The patient used a large size full face mask. JESUS HARRY MD DR: GISEL/barbra JOB#: [id number] / [id number]
== END ==
LOC: RT 18:34
PROVIDERS: ATTEND Internal Medicine Pulmonary Disease
DX: G47.33 Obstructive sleep apnea (adult) (pediatric) (principal)
CPT/HCPCS: 95811

== ENCOUNTER → 2020-08-11 | Outpatient (CLI) | payer OTHER, MEDICAID ==
[~2020-08-11] MED LIST changes: -LISI-338 PO; +LISI-517 PO; -ZOLPIDEM 5 MG TABLET. PO ONE
--- NOTE | 2020-08-11 17:21 | RAD ---
Nuclear medicine whole body bone scan History: Lung mass. Left-sided rib pain. Comparison: CT chest with contrast January 31, 2020. Technique: Examination performed after intravenous administration of 25.5 mCi Technetium 99m MDP. Im ages of the whole body were obtained in the anterior and posterior projections. Additional right and left lateral static images of the ribs acquired. Findings: Tracer uptake in the spine is mildly heterogeneous. There is mildly increased tracer uptake of the right posterior eighth rib. No definite correlate is s een on prior CT. Tracer uptake in ribs is otherwise symmetric. Tracer uptake in pelvic bones is symmetric. Urinary bladder obscures the lower sacrum and the pubic rami. Punctate uptake proximal to right antec ubital region may be injection site related. Tracer distribution in the soft tissues appears physiol ogic. Impression: Mild increased tracer uptake of the right posterior eighth rib is indeterminate. Uptake could be sequ cedric of therapy as it is in the region of lung consolidation and probable prior radiation therapy. Con knitting tester correlation with CT. Electronically signed by: Nino Daniel MD (08/11/2020 5:18 PM) [id number]
--- NOTE | 2020-08-11 17:21 | RAD ---
Nuclear medicine whole body bone scan History: Lung mass. Left-sided rib pain. Comparison: CT chest with contrast January 31, 2020. Technique: Examination performed after intravenous administration of 25.5 mCi Technetium 99m MDP. Im ages of the whole body were obtained in the anterior and posterior projections. Additional right and left lateral static images of the ribs acquired. Findings: Tracer uptake in the spine is mildly heterogeneous. There is mildly increased tracer uptake of the right posterior eighth rib. No definite correlate is s een on prior CT. Tracer uptake in ribs is otherwise symmetric. Tracer uptake in pelvic bones is symmetric. Urinary bladder obscures the lower sacrum and the pubic rami. Punctate uptake proximal to right antec ubital region may be injection site related. Tracer distribution in the soft tissues appears physiol ogic. Impression: Mild increased tracer uptake of the right posterior eighth rib is indeterminate. Uptake could be sequ cedric of therapy as it is in the region of lung consolidation and probable prior radiation therapy. Con recycle driver correlation with CT. Electronically signed by: Nino Daniel MD (08/11/2020 5:18 PM) [id number]
== END ==
LOC: NM 08:32
PROVIDERS: ATTEND Internal Medicine Pulmonary Disease
DX: R91.8 Other nonspecific abnormal finding of lung field (principal)
CPT/HCPCS: 78306; A9503

== ENCOUNTER → 2020-12-08 | Outpatient (CLI) | payer OTHER, MEDICAID ==
--- NOTE | 2020-12-08 11:33 | RAD ---
CT THORAX WO dated 12/08/2020 10:08 AM Indication:Reason: LUNG NODULE / Spl. Instructions: / History: Lung cancer and prior surgery. Comparison: CTA chest 01/31/2020. Technique: Helical noncontrast images were performed. One or more of the following individualized dose reduction techniques were utilized for this examinat ion: 1. Automated exposure control 2. Adjustment of the mA and/or kV according to patient size 3. Use of iterative reconstruction technique Findings: Some right lung opacity persists in the medial chest and suggests postradiation change. This appears stable. A pleural-based nodule laterally in the right middle lobe is also stable. No new pulmonary pa renchymal abnormality is seen. Diffuse emphysema is again demonstrated through both lungs. The centra l airways on the right show some distortion in the region of parenchymal abnormality, but this appear s stable. No airway obstruction is seen. There is no apparent axillary adenopathy. Evaluation of the lainey and mediastinum is somewhat limited by lack of IV contrast, but no new enlarged nodes are seen. A stent graft is again shown through the distal thoracic aorta. Images through the upper abdomen show no new abnormality. IMPRESSION: Stable appearance. No evidence of new or recurrent disease. Electronically signed by: Rigoberto Carty Jr., MD (12/08/2020 11:31 AM) [id number]
== END ==
LOC: CT 10:06
PROVIDERS: ATTEND Internal Medicine Pulmonary Disease
DX: R91.1 Solitary pulmonary nodule (principal); J43.9 Emphysema, unspecified
CPT/HCPCS: 71250

== ENCOUNTER → 2020-12-14 | Outpatient (CLI) | payer OTHER, MEDICAID ==
--- NOTE | 2020-12-15 14:01 | CARD ---
MR#: [id number] Date of Study: 12/14/2020 Ordering Physician: BERTRAND CHOWDARY, Referring Physician: Malachi SERRANO: Markus Smith [facility] APPROVED REPORT EXAM: Two-dimensional and M-mode echocardiogram with Doppler and color Doppler. Other Information Quality : Fair Rhythm : NSRTechnically limited study due to smoking. INDICATION Dyspnea 2D DIMENSIONS Left Atrium(2D)3.4 (1.6-4.0cm)IVSd0.8 (0.7-1.1cm) Aortic Root(2D)3.5 (2.0-3.7cm)LVDd3.9 (3.9-5.9cm) LVOT Diameter2.0 (1.8-2.4cm)PWd0.9 (0.7-1.1cm) LVDs2.3 (2.5-4.0cm)FS (%) 41.9 % SV47.8 ml Aortic Valve AoV Peak Aravind.100.8cm/sAoV VTI15.9cm AO Peak GR.4.1mmHgLVOT Peak Aravind.79.8cm/s AO Mean GR.2mmHgAVA (VMAX)2.44cm2 Mitral Valve MV E Fklvsfvf15.9cm/sMV E Peak Gr.3mmHg MV DECEL [id number] A Kftaggve82.2cm/s MV E Mean Gr.1mmHgE/A Ratio0.8 Pulmonary Valve PV Peak Smbiklyw967.3cm/s Tricuspid Valve TR P. Sjkkwmks330co/sTR Peak Gr.25mmHg Pulmonary Vein S1 Dmmsnzda76.5cm/sD2 Zkthlvmb08.4cm/s LEFT VENTRICLE The left ventricle is normal size. There is normal left ventricular wall thickness. The left ventricu lar systolic function is normal and the ejection fraction is within normal range. Left ventricular ej ection fraction of 55 to 60%. There is normal LV segmental wall motion. Transmitral Doppler flow misa gil is Grade I-abnormal relaxation pattern. No left ventricle thrombus noted on this study. There is no ventricular septal defect visualized. There is no left ventricular aneurysm. There is no mass note d in the left ventricle. RIGHT VENTRICLE The right ventricle is normal size. There is normal right ventricular wall thickness. The right ventr icular systolic function is normal. ATRIA The left atrium size is normal. The right atrium size is normal. The interatrial septum is intact wit h no evidence for an atrial septal defect or patent foramen ovale as noted on 2-D or Doppler imaging. AORTIC VALVE The aortic valve is mildly sclerotic. Doppler and Color Flow revealed no significant aortic regurgita tion. There is no significant aortic valvular stenosis. There is no aortic valvular vegetation. MITRAL VALVE The mitral valve is normal in structure and function. There is no evidence of mitral valve prolapse. There is no mitral valve stenosis. Doppler and Color-flow revealed trace mitral regurgitation. TRICUSPID VALVE The tricuspid valve is normal in structure and function. Doppler and Color Flow revealed trace tricus pid valve regurgitation. There is no tricuspid valve prolapse or vegetation. There is no tricuspid va lve stenosis. PULMONIC VALVE The pulmonary valve is normal in structure and function. Doppler and Color Flow revealed no pulmonic valvular regurgitation. There is no pulmonic valvular stenosis. GREAT VESSELS The aortic root is normal in size. The ascending aorta is normal in size. The pulmonary artery is nor mal. The IVC is normal in size and collapses >50% with inspiration. PERICARDIAL EFFUSION There is no pleural effusion. There is no evidence of significant pericardial effusion. Critical Notification Critical Value: No <Conclusion> The left ventricle is normal size. The left ventricular systolic function is normal and the ejection fraction is within normal range. Left ventricular ejection fraction of 55 to 60%. Doppler and Color Flow revealed no significant aortic regurgitation. There is no significant aortic valvular stenosis. Doppler and Color-flow revealed trace mitral regurgitation. Doppler and Color Flow revealed trace tricuspid valve regurgitation. Signed by : Rigoberto Zhou MD Electronically Approved : 12/15/2020 14:01:16
== END ==
LOC: ECHO 14:35
PROVIDERS: ATTEND Internal Medicine Cardiovascular Disease
DX: I35.1 Nonrheumatic aortic (valve) insufficiency (principal); I25.10 Atherosclerotic heart disease of native coronary artery without angina pectoris
CPT/HCPCS: 93306

== ENCOUNTER 2021-01-15 10:56 | Emergency (ER) | payer OTHER, MEDICAID ==
[~2021-01-15] VITALS: Ht 175.3 cm; Wt 62.8 kg
--- NOTE | 2021-01-15 11:22 | PHYS DOC ---
Past Medical History Past Medical History: Cancer, COPD, High Cholesterol Additional Past Medical Histor: LUNG CANCER Past Surgical History: Other Additional Past Surgical Histo: STENTS CARDIAC Smoking Status: Light Tobacco Smoker Alcohol Use: None Drug Use: None General Adult EDM: Chief Complaint: SHORTNESS OF BREATH HPI: HPI: 70-year-old male with a history of lung cancer, previous smoking, COPD on 3 L nasal cannula at all times presents to the emergency department complaining of shortness of breath over the last several days with gradual onset with nonradiating right-sided chest pain that is pleuritic in nature worsens upon deep breathing. He sees his senior c web developer here at [place] Dr. Larry, who states that the patient needs to come to the ER every time he has chest pain and shortness of breath which occurred today. Patient also states that he feels like he is wheezing. He tried to give himself some albuterol nebulized treatments at home with moderate success in reduction of symptoms. He has had Covid in the past and has been fully vaccinated at this time. The patient denies nausea, vomiting, fever, chills, abdominal pain, urinary symptoms, recent trauma, or any other complaints. Review of Systems: Review of Systems: ROS otherwise negative except for what was mentioned in HPI Heart Score: C/O Chest Pain: Yes HEART Score for Chest Pain: HEART Score for Chest Pain Response (Comments) Value History Slighlty/Non-Suspicious 0 Age > 65 2 Risk Factors 1 or 2 Risk Factors 1 Troponin < Normal Limit 0 Total 3 Family History: Family History: non contributory Allergies: Allergies: Allergies Coded Allergies Type Severity Reaction Last Updated Verified No Known Drug Allergies 06/04/19 No Physical Exam: PE: Constitutional: No acute distress, non-toxic appearance. HENT: Atraumatic, bilateral external ears normal, nose normal. Eyes: PERRLA, EOMI, conjunctiva normal, no discharge. Neck: Normal range of motion, supple, no stridor. Cardiovascular: Heart rate regular rhythm. 2+ radial pulses Lungs & Thorax: No respiratory distress, symmetrical expansion. Expiratory wheezing is noted in bilateral lung rojas Abdomen: Soft, no tenderness Skin: Warm, dry. Extremities: No tenderness, no cyanosis, ROM intact, no edema. Neurologic: Alert and oriented X 3, normal motor function, normal sensory function, no focal deficits noted. Non ataxic gait. GCS 15. Psychologic: Affect normal, judgment normal, mood normal. Current Patient Data: Labs: Laboratory Tests Test 01/15/21 11:20 01/15/21 11:34 White Blood Count 10.7 x10^3/uL (4.0-11.0) Red Blood Count 4.31 x10^6/uL (4.30-5.70) Hemoglobin 12.9 g/dL (13.0-17.5) Hematocrit 38.1 % (39.0-53.0) Mean Corpuscular Volume 88 fL (79-100) Mean Corpuscular Hemoglobin 30 pg (25-35) Mean Corpuscular Hemoglobin Concent 34 g/dL (31-37) Red Cell Distribution Width 13.0 % (11.5-14.5) Platelet Count 217 x10^3/uL (140-400) Neutrophils (%) (Auto) 74 % (31-73) Lymphocytes (%) (Auto) 13 % (24-48) Monocytes (%) (Auto) 9 % (0-9) Eosinophils (%) (Auto) 4 % (0-3) Basophils (%) (Auto) 1 % (0-3) Neutrophils # (Auto) 7.9 x10^3/uL (1.8-7.7) Lymphocytes # (Auto) 1.4 x10^3/uL (1.0-4.8) Monocytes # (Auto) 0.9 x10^3/uL (0.0-1.1) Eosinophils # (Auto) 0.4 x10^3/uL (0.0-0.7) Basophils # (Auto) 0.1 x10^3/uL (0.0-0.2) Sodium Level 138 mmol/L (136-145) Potassium Level 4.2 mmol/L (3.5-5.1) Chloride Level 102 mmol/L (98-107) Carbon Dioxide Level 32 mmol/L (21-32) Anion Gap 4 (6-14) Blood Urea Nitrogen 16 mg/dL (8-26) Creatinine 0.8 mg/dL (0.7-1.3) Estimated GFR (Cockcroft-Gault) 95.3 Glucose Level 83 mg/dL (70-99) Calcium Level 8.6 mg/dL (8.5-10.1) Troponin I Quantitative < 0.017 ng/mL (0.000-0.055) RU-Slp-O-Type Natriuretic Peptide 300 pg/mL (0-124) Influenza Type A Antigen Negative (NEGATIVE) Influenza Type B Antigen Negative (NEGATIVE) Vital Signs: Vital Signs Date Time Temp Pulse Resp B/P (MAP) Pulse Ox O2 Delivery O2 Flow Rate FiO2 01/15/21 11:13 98.1 90 24 141/78 (99) 100 Nasal Cannula 3.0 98.1 EKG: EKG: Time read: 1122 Normal sinus rhythm rate of 96, no ST-T wave changes, no ectopic beats, left axis deviation, normal WA, QRS, and QTc intervals. Impression: LAD, otherwise normal EKG. interpreted by me, Tal Mooney D.O. Radiology/Procedures: Radiology/Procedures: Wells' Criteria for Pulmonary Embolism from [email or web address] on 01/15/2021 RESULT SUMMARY: 4.0 points Moderate risk group: 16.2% chance of PE in an ED population. Another study assigned scores ? 4 as PE Unlikely and had a 3% incidence of PE. INPUTS: Clinical signs and symptoms of DVT > 0 = No PE is #1 diagnosis OR equally likely > 3 = Yes Heart rate > 100 > 0 = No Immobilization at least 3 days OR surgery in the previous 4 weeks > 0 = No Previous, objectively diagnosed PE or DVT > 0 = No Hemoptysis > 0 = No Malignancy w/ treatment within 6 months or palliative > 1 = Yes PROCEDURE: CT ANGIOGRAPHY CHEST EXAM: CT ANGIOGRAPHY OF THE CHEST WITH AND WITHOUT CONTRAST. HISTORY: Chest pain, shortness of breath, lung cancer. TECHNIQUE: Computed tomographic angiography of the chest was performed before and after the intravenous administration of iodinated contrast. 3-D maximum intensity projections were also performed. One or more of the following individualized dose reduction techniques were utilized for this examination: 1. Automated exposure control. 2. Adjustment of the mA and/or kV according to patient size. 3. Use of iterative reconstruction technique. COMPARISON: 12/08/2020. FINDINGS: Images of the upper abdomen reveal embolization material within the celiac axis. It is patent more distally. Bone windows reveal no suspicious lesions. No pulmonary emboli are identified. 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 Maximum sac diameter is 4.6 x 4.3 cm, unchanged. There are no pathologically enlarged mediastinal or axillary lymph nodes. There is no pleural or pericardial effusion. The heart is not enlarged. There are atherosclerotic calcifications of the coronary arteries. A 7 x 5 mm nodule in the right middle lobe is unchanged. Posttreatment scarring posterior to the right hilum is stable. Centrilobular emphysema is severe. IMPRESSION: 1. No pulmonary embolism. 2. Stable posttreatment changes in the right lower lobe and perihilar region. No evidence of active malignancy. 3. Stable 7 x 5 mm right middle lobe nodule. Attention on further follow-up. 4. 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 Stable maximum diameter 4.6 cm. 5. Severe centrilobular emphysema. Electronically signed by: Joshua Hua MD (01/15/2021 1:29 PM) XR CHEST 1V History: Shortness of air Comparison: CT chest 12/08/2020, chest x-ray 02/29/2020 Technique: Portable AP radiograph of the chest. Findings: Right-sided volume loss and perihilar consolidation/scarring, similar to comparison CT. Right apical pleural-parenchymal thickening. Blunting of left costophrenic angle. Diffuse emphysematous change with prominent interstitial markings. No pleural effusion or pneumothorax. Normal heart size. Pulmonary vasculature is within normal limits. Descending aortic stent. Embolization coil redemonstrated at the upper midline abdomen. Impression: 1. Chronic lung changes without acute cardiopulmonary findings. Electronically signed by: Pk Longoria MD (01/15/2021 11:27 AM) Course & Med Decision Making: Course & Med Decision Making Patient feels all the way better after albuterol and prednisone, will prescribe for home along with requested outpatient medications. Patient states he is comfortable with this plan. No further chest pain. Lungs are clear after treatments. will proceed with discharge. Departure Departure Impression: Primary Impression: COPD exacerbation Disposition: 01 HOME / SELF CARE / HOMELESS Condition: GOOD Referrals: UNKNOWN PCP NAME (PCP) Patient Instructions: Chronic Obstructive Pulmonary Disease Exacerbation, [id number] Additional Instructions: You were seen in the emergency department for a COPD exacerbation. Please continue your current regimen for symptom control and if prescribed any medications during your ED visit today, take them as prescribed until completion or your primary doctor changes your medications. It will be important that you follow up with your primary doctor/glass maker after this ED visit as soon as possible. Return to the ED if you develop worsening cough, shortness of breath, fever > 101, chest pain, or any other new or concerning symptoms. Scripts Ipratropium/Albuterol Sulfate (DUONEB 0.5-3(2.5) MG/3 ML) 3 Ml Ampul.neb 3 ML NEB Q4HRS for COPD for 30 Days, #180 EACH Prov: TAL MOONEY DO 01/15/21 Apixaban (ELIQUIS) 5 Mg Tablet 5 MG PO BID for 30 Days, #60 TAB Prov: TAL MOONEY DO 01/15/21 Prednisone (PREDNISONE) 50 Mg Tablet 1 TAB PO DAILY, #5 TAB Prov: TAL MOONEY DO 01/15/21 Lisinopril (LISINOPRIL) 5 Mg Tablet 0.5 TAB PO QHS for htn, #30 TAB 5 Refills Prov: TAL MOONEY DO 01/15/21 Atorvastatin Calcium (Atorvastatin Calcium) 80 Mg Tablet 80 MG PO QHS for FOR HIGH CHOLESTEROL for 30 Days, #30 TAB Prov: TAL MOONEY DO 01/15/21 Albuterol Sulfate (PROAIR HFA INHALER) 8.5 Gm Hfa.aer.ad 1 PUFF INH PRN Q6HRS PRN for SHORTNESS OF BREATH for 30 Days, #1 INHALER Prov: TAL MOONEY DO 01/15/21 TAL MOONEY DO Jan 15, 2021 11:22
--- NOTE | 2021-01-15 11:29 | RAD ---
XR CHEST 1V History: Shortness of air Comparison: CT chest 12/08/2020, chest x-ray 02/29/2020 Technique: Portable AP radiograph of the chest. Findings: Right-sided volume loss and perihilar consolidation/scarring, similar to comparison CT. Right apical pleural-parenchymal thickening. Blunting of left costophrenic angle. Diffuse emphysematous change wit h prominent interstitial markings. No pleural effusion or pneumothorax. Normal heart size. Pulmonary vasculature is within normal limits. Descending aortic stent. Embolization coil redemonstrated at the upper midline abdomen. Impression: 1. Chronic lung changes without acute cardiopulmonary findings. Electronically signed by: Pk Longoria MD (01/15/2021 11:27 AM) [id number]
[2021-01-15] MEDS ORDERED: ALBUTEROL SULFATE 2.5 MG/3 ML NEBU. NEB ONE (11:30)
[2021-01-15] MEDS ORDERED: IPRATRPIUM/ALBUTEROL 0.5/2.5MG 3 ML NEBU. NEB ONE (11:30)
[2021-01-15] MEDS ORDERED: predniSONE 10 MG TABLET PO ONE (11:30)
[2021-01-15 11:41] LABS: BASO # 0.1 x10^3/uL (0.0-0.2); BASO % 1 % (0-3); EOS # 0.4 x10^3/uL (0.0-0.7); EOS % 4 % (0-3); HEMATOCRIT 38.1 % (39.0-53.0); HEMOGLOBIN 12.9 g/dL (13.0-17.5); LYMPH # 1.4 x10^3/uL (1.0-4.8); LYMPH % 13 % (24-48); MEAN CORPUSCULAR HEMOGLOBIN 30 pg (25-35); MEAN CORPUSCULAR HGB CONC 34 g/dL (31-37); MEAN CORPUSCULAR VOLUME 88 fL (79-100); MONO # 0.9 x10^3/uL (0.0-1.1); MONO % 9 % (0-9); NEUT # 7.9 x10^3/uL (1.8-7.7); NEUT % 74 % (31-73); PLATELET COUNT 217 x10^3/uL (140-400); RED BLOOD COUNT 4.31 x10^6/uL (4.30-5.70); WHITE BLOOD COUNT 10.7 x10^3/uL (4.0-11.0)
[2021-01-15 11:57] LABS: CALCIUM 8.6 mg/dL (8.5-10.1); CREATININE 0.8 mg/dL (0.7-1.3); GFR 95.3; POTASSIUM 4.2 mmol/L (3.5-5.1)
[2021-01-15 12:13] LABS: INFLUENZA A PATIENT NEGATIVE (NEGATIVE); INFLUENZA B PATIENT NEGATIVE (NEGATIVE)
[2021-01-15] MEDS ORDERED: IOHEXOL 350 MG/ML 100 ML VIAL. IV ONE (12:15)
[2021-01-15] MEDS ORDERED: CONTRAST GIVEN. MC PRN (12:15)
--- NOTE | 2021-01-15 13:32 | RAD ---
EXAM: CT ANGIOGRAPHY OF THE CHEST WITH AND WITHOUT CONTRAST. HISTORY: Chest pain, shortness of breath, lung cancer. TECHNIQUE: Computed tomographic angiography of the chest was performed before and after the intraveno us administration of iodinated contrast. 3-D maximum intensity projections were also performed. One o r more of the following individualized dose reduction techniques were utilized for this examination: 1. Automated exposure control. 2. Adjustment of the mA and/or kV according to patient size. 3. Use of iterative reconstruction technique. COMPARISON: 12/08/2020. FINDINGS: Images of the upper abdomen reveal embolization material within the celiac axis. It is hernandez nt more distally. Bone windows reveal no suspicious lesions. No pulmonary emboli are identified. 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 Maximum sac diameter is 4.6 x 4.3 cm, unchanged. There are no pathologically enlarged mediastinal or axillary lymph nodes. There is no pleural or jose cardial effusion. The heart is not enlarged. There are atherosclerotic calcifications of the coronary arteries. A 7 x 5 mm nodule in the right middle lobe is unchanged. Posttreatment scarring posterior to the righ t hilum is stable. Centrilobular emphysema is severe. IMPRESSION: 1. No pulmonary embolism. 2. Stable posttreatment changes in the right lower lobe and perihilar region. No evidence of active m alignancy. 3. Stable 7 x 5 mm right middle lobe nodule. Attention on further follow-up. 4. 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 Stable maximum diameter 4 .6 cm. 5. Severe centrilobular emphysema. Electronically signed by: Joshua Hua MD (01/15/2021 1:29 PM) [id number]
[2021-01-15 13:45] VITALS: BP 129/90
[2021-01-15] MEDS ORDERED: PRED50TA PO (13:56)
[2021-01-15] MEDS ORDERED: LISI-517 PO (13:56)
[2021-01-15] MEDS ORDERED: ALBU2.5V8 INH (13:56)
[2021-01-15] MEDS ORDERED: ATOR80TA72 PO (13:56)
[2021-01-15] MEDS ORDERED: APIX5TAB PO (13:57)
[2021-01-15] MEDS ORDERED: IPRA3AMP29 NEB (14:08)
--- NOTE | 2021-01-15 16:39 | NUR ---
IP: Informed pt of negative covid test. Pt verbalized understanding.
== END 2021-01-15 14:00 | disposition home or self-care (01) ==
LOC: ER 10:56
DX: J44.1 Chronic obstructive pulmonary disease with (acute) exacerbation (principal); Z20.822 Contact with and (suspected) exposure to COVID-19; E78.00 Pure hypercholesterolemia, unspecified; Z72.0 Tobacco use; Z85.118 Personal history of other malignant neoplasm of bronchus and lung; Z95.5 Presence of coronary angioplasty implant and graft
CPT/HCPCS: 36415; 71045; 71275; 80048; 83880; 84484; 85025; 87804; 94640; 99285; J7512; J7613; Q9967; U0003; U0005

== ENCOUNTER 2021-02-12 11:16 | Inpatient (IN) | payer OTHER, MEDICAID ==
[~2021-02-12] VITALS: Ht 175.3 cm; Wt 62.5 kg
[~2021-02-12 11:16] MED LIST changes: -LISI-517 PO; +LISI5TAB15 PO; +PRED50TA PO
[2021-02-12] MEDS ORDERED: IPRATRPIUM/ALBUTEROL 0.5/2.5MG 3 ML NEBU. NEB ONE (12:30)
[2021-02-12 12:47] LABS: BASO % 0 % (0-3); EOS # 0.2 x10^3/uL (0.0-0.7); EOS % 3 % (0-3); HEMOGLOBIN 12.9 g/dL (13.0-17.5); LYMPH # 1.4 x10^3/uL (1.0-4.8); LYMPH % 19 % (24-48); MEAN CORPUSCULAR HEMOGLOBIN 29 pg (25-35); MEAN CORPUSCULAR HGB CONC 33 g/dL (31-37); MEAN CORPUSCULAR VOLUME 87 fL (79-100); MONO % 13 % (0-9); NEUT # 4.9 x10^3/uL (1.8-7.7); NEUT % 65 % (31-73); PLATELET COUNT 277 x10^3/uL (140-400); RED BLOOD COUNT 4.46 x10^6/uL (4.30-5.70); RED CELL DISTRIBUTION WIDTH 12.5 % (11.5-14.5); WHITE BLOOD COUNT 7.5 x10^3/uL (4.0-11.0)
--- NOTE | 2021-02-12 12:50 | RAD ---
AP chest. HISTORY: Short of breath AP view of the chest was compared with a study from January 15. There is persistent evidence of scarr ing and fibrosis and posttreatment changes superimposed on the hilum of the lung in the right lower l obe. The pattern is unchanged from the prior study. There are no new infiltrates. Heart is normal in size. There is no effusion. There are changes from chronic obstructive pulmonary disease and hyperexp ansion. IMPRESSION: 1. Scarring in the right lung and chronic atelectasis or fibrosis superimposed on the right hilum. 2. No change from the recent study. 3. No new infiltrates. Electronically signed by: Jese Mckeon MD (02/12/2021 12:47 PM) [id number]
[2021-02-12 12:57] LABS: CALCIUM 9.3 mg/dL (8.5-10.1); GFR 73.7; POTASSIUM 4.1 mmol/L (3.5-5.1)
[2021-02-12 13:04] LABS: ALBUMIN 3.5 g/dL (3.4-5.0); ALBUMIN/GLOBULIN RATIO 0.8 (1.0-1.7); TOTAL BILIRUBIN 0.4 mg/dL (0.2-1.0); TOTAL PROTEIN 7.9 g/dL (6.4-8.2)
--- NOTE | 2021-02-12 13:04 | PHYS DOC ---
Past Medical History Past Medical History: Cancer, COPD, High Cholesterol Additional Past Medical Histor: LUNG CANCER Past Surgical History: Other Additional Past Surgical Histo: STENTS CARDIAC Smoking Status: Current Every Day Smoker Alcohol Use: None Drug Use: None General Adult EDM: Chief Complaint: SHORTNESS OF BREATH HPI: HPI: Patient is 70-year-old male who presents to the emergency department complaining of increased shortness of breath on exertion for the past 2 weeks. Patient states he has been treating himself at home with breathing treatments which helped him feel better however when he stands to walk to the bathroom or walk any distance he becomes increasingly short of breath. Patient reports he usually wears oxygen at night only however as of yesterday started wearing 3 L of oxygen throughout the day. Patient reports he became worried and decided to come to the emergency department under the direction of his primary care physician Dr. Sidhu for evaluation and treatment. Patient reports a greater than 50-year history of cigarette smoking, reports he quit smoking 3 weeks ago. Patient states he had lung cancer last year and was treated with radiation treatment and was told his cancer has resolved. Patient states his only medications are cholesterol med, Eliquis, and a blood pressure medication that controls his atrial fibrillation. Patient denies chest pains, fevers or chills, diaphoretic episodes, nausea, vomiting, or diarrhea. Patient states it does hurt when he coughs on his anterior lower right chest area. Otherwise he has no pain. Patient denies other physical complaints or physical concerns. Patient reports receiving first Covid vaccination last month. Has not received completion of series for Review of Systems: Review of Systems: 14 body systems of review of systems have been reviewed. See HPI for pertinent positives and negative responses, otherwise all other systems are negative, nonpertinent or noncontributory. Constitutional: Negative except as outlined in HPI above. Skin: Negative except as outlined in HPI above. Eyes: Negative except as outlined in HPI above. HENT: Negative except as outlined in HPI above. Respiratory: Negative except as outlined in HPI above. Cardiovascular: Negative except as outlined in HPI above. GI: Negative except as outlined in HPI above. : Negative except as outlined in HPI above. Musculoskeletal: Negative except as outlined in HPI above. Integument: Negative except as outlined in HPI above. Neurologic: Negative except as outlined in HPI above. Endocrine: Negative except as outlined in HPI above. Lymphatic: Negative except as outlined in HPI above. Psychiatric: Negative except as outlined in HPI above. Heart Score: C/O Chest Pain: No Risk Factors: Risk Factors: DM, Current or recent (<one month) smoker, HTN, HLP, family history of CAD, obesity. Risk Scores: Score 0 - 3: 2.5% MACE over next 6 weeks - Discharge Home Score 4 - 6: 20.3% MACE over next 6 weeks - Admit for Clinical Observation Score 7 - 10: 72.7% MACE over next 6 weeks - Early Invasive Strategies Current Medications: Current Medications Medications (Trade) Dose Ordered Sig/Royal Start Time Stop Time Status Last Admin Dose Admin Albuterol/ Ipratropium (Duoneb) 3 ml 1X ONCE 02/12/21 12:30 02/12/21 12:31 DC 02/12/21 12:32 3 ML Allergies: Allergies: Allergies Coded Allergies Type Severity Reaction Last Updated Verified No Known Drug Allergies 06/04/19 No Physical Exam: PE: Constitutional: Well developed, well nourished, appears in moderate respiratory distress, non-toxic appearance. 70-year-old male in moderate respiratory distress, pursed lip breathing HENT: Normocephalic, atraumatic. Oropharynx moist, pink, no deep tissue infectious process appreciated, patient speaking in normal voice tones. No lymphadenopathy of the head or neck appreciated Eyes: Conjunctiva normal, no discharge. Neck: Normal range of motion, no stridor. No nuchal rigidity, no meningismus signs. Cardiovascular: No cyanosis appreciated, distal cap refill less than 2 seconds. Heart sounds S1-S2 auscultation. Lungs & Thorax: Patient is in moderate respiratory distress with pursed lip breathing, is not tripoding, accessory muscle use for exhalation, audible expiratory coarse lung sounds. Coarse lung sounds per auscultation of lung rojas, patient is hypoxic at 86% on room air, placed on 3 L per nasal cannula. Abdomen: Nontender, no abnormalities noted. Skin: Warm, dry, no erythema, no rash. Back: No tenderness, no deformities. Extremities: No tenderness, no cyanosis, no clubbing, ROM intact, no edema. Neurologic: Alert and oriented X 3, normal motor function, normal sensory function, no focal deficits noted. Psychologic: Affect normal, judgement normal, mood normal. EKG: EKG: EKG performed at 1211 by ED nursing staff shows a normal sinus rhythm without other ectopy, heart rate 91 bpm, IL interval 0.166, QTc interval 0.415, no acute STEMI, no ACS, no acute ischemia appreciated, EKG interpreted by ED attending physician Dr. Cohen. Radiology/Procedures: Radiology/Procedures: PATIENT: ANTONI LINDER MACCOUNT: [id number] : 1950 LOCATION: ER AGE: 70 SEX: M EXAM STATUS: REG ER ORD. PHYSICIAN: TOÑO OLIVER APRN REASON: Shortness of breath PROCEDURE: CHEST AP ONLY AP chest. HISTORY: Short of breath AP view of the chest was compared with a study from January 15. There is persistent evidence of scarring and fibrosis and posttreatment changes superimposed on the hilum of the lung in the right lower lobe. The pattern is unchanged from the prior study. There are no new infiltrates. Heart is normal in size. There is no effusion. There are changes from chronic obstructive pulmonary disease and hyperexpansion. IMPRESSION: 1. Scarring in the right lung and chronic atelectasis or fibrosis superimposed on the right hilum. 2. No change from the recent study. 3. No new infiltrates. Electronically signed by: Jese Mckeon MD (02/12/2021 12:47 PM) [id number] Course & Med Decision Making: Course & Med Decision Making Pertinent Labs and Imaging studies reviewed. (See chart for details) 70-year-old male, vital signs reviewed, presents to the emergency department concerning increased shortness of breath with exertion for the past 2 weeks along with requiring 3 L nasal cannula at all times. Physical examination concerning for COPD exacerbation. Will order chest x-ray, DuoNeb treatment, CBC, CMP, cardiac enzymes. Patient's chest x-ray nonconcerning for acute process. Upon reevaluation of the patient, patient reports he feels much better after his breathing treatment. P atient's labs decayed hypoxia, patient requires constant 3 L per nasal cannula to keep sat above 90%. Discussed with patient admission to the hospital for ongoing evaluation of COPD exacerbation and dyspnea requiring oxygen at all times, patient is amenable to this planning. Discussed case and ED work-up with inpatient management physician Dr. Onofre and pulmonology specialist Dr. Salgado who agreed patient's presentation warrants admission to the telemetry unit, Dr. Salgado requested patient have CT angio chest prior to floor placement. Patient awaiting bed assignment from housekeeping aide at this time. Juan Ramonon Disclaimer: Dragon Disclaimer: This electronic medical record was generated, in whole or in part, using a voice recognition dictation system. Departure Departure Impression: Primary Impression: COPD exacerbation Additional Impressions: Acute on chronic respiratory failure with hypoxia Dyspnea on exertion Disposition: ADMITTED INPATIENT Admitting Physician: KIRSTEN (Admit to Dr. Onofre, consult pulmonary specialty) Condition: GUARDED Referrals: UNKNOWN PCP NAME (PCP) TOÑO OLIVER APRN Feb 12, 2021 13:04
[2021-02-12 13:10] LABS: CREATINE KINASE 44 U/L (39-308)
[2021-02-12] MEDS ORDERED: IOHEXOL 350 MG/ML 100 ML VIAL. IV ONE (13:45)
[2021-02-12] MEDS ORDERED: CONTRAST GIVEN. MC PRN (13:45)
--- NOTE | 2021-02-12 14:14 | RAD ---
CT angiography of the chest 02/12/2021 1:44 PM Indication: Reason: Dyspnea on exertion, history of emphysema lung cancer / Technique: Multiple contiguous axial images were obtained through the chest after administration of i ntravenous iodinated contrast. Coronal, sagittal, and 3-D MIP reformations were created. Comparison: CT angiography of the chest January 15, 2021 Findings: There is no filling defect within central pulmonary arteries or evidence of acute pulmonary embolism. No pericardial effusion is appreciated. Heart size is normal. Dense coronary calcification noted. Partially visualized stent graft noted in t he descending thoracic aorta. Maximal diameter of the descending thoracic aortic aneurysm sac which i s unchanged. Severe centrilobular emphysematous changes again noted. No pneumothorax is identified. V olume loss in the right lower lobe with chronic atelectasis in subpleural thickening is similar. Morp hology is unchanged in the interim. There is a subpleural nodular thickening in the right middle lobe are unchanged. No acute infiltrates are identified. Multifocal subpleural scarring is similar. Limit ed visualization of the upper abdomen demonstrates no acute abnormality. Coiling of the celiac axis n oted. No acute osseous changes are identified in the interim. Degenerative changes of thoracic spine noted. Wedging of mid thoracic vertebral bodies noted. Impression: 1. No evidence of acute pulmonary embolism 2. Severe chronic emphysematous 2. Similar posttreatment changes in the right lower lobe CT DOSING PQRS STATEMENT: One or more of the following individualized dose reduction techniques were utilized for this examinat ion: 1. Automated exposure control 2. Adjustment of the mA and/or kV according to patient size 3. Use of iterative reconstruction technique Electronically signed by: Jacoby Quarles MD (02/12/2021 2:11 PM) [id number]
--- NOTE | 2021-02-12 17:35 | EKG ---
[facility] [address] [place] [address] Test Date: 2021-02-12 Test Time: 12:11:33 Pat Name: ANTONI LINDER Department: Room: 506 Gender: M Chief Nuclear Medicine Technologist: : 1950 Requested By: TOÑO OLIVER Order Number: [id number] Reading MD: Rey Marcelo MD Measurements Intervals [place] Rate: 91 P: 60 WA: 166 QRS: 38 QRSD: 80 T: 72 QT: 332 QTc: 415 Interpretive Statements SINUS RHYTHM Electronically Signed On 02-13-2021 9:23:58 SECURITY SYSTEMS SPECIALIST by Rey Marcelo MD
[2021-02-12 18:00] VITALS: BP 99/54
[2021-02-12] MEDS ORDERED: ALBUTEROL SULFATE 2.5 MG/3 ML NEBU. INH PRN (18:15)
--- NOTE | 2021-02-12 18:17 | PDOC1 ---
History and Physical Date of Admission Date of Admission DATE: 02/12/21 TIME: 18:11 Source Source: Chart review, Patient History of Present Illness History of Present Illness Mr. Carrero, is 70-year-old male admit with cough and dyspnea. He complains of increased shortness of breath on exertion for the past 2 weeks. He stopped smoking 1 month ago as he didnt feel that well, but he downplays that some. He feels better in ER after a breathing traetement was given, he has been trying to keep up with breathing treatments at home, but still short of braeth and new cough. Patient reports he usually wears oxygen at night, and follows PULM with Dr. Sidhu, Diagnosed with lung cancer last year and was treated with radiation treatment. He denies other physical complaints or physical concerns. he has been COVID vaccinated Past Medical History Cardiovascular: CAD, HTN, Hyperlipidemia, Other Pulmonary: COPD CENTRAL NERVOUS SYSTEM: Other GI: No pertinent hx Heme/Onc: Cancer Hepatobiliary: Hep A/B/C Psych: No pertinent hx Musculoskeletal: Osteoarthritis Rheumatologic: No pertinent hx Infectious disease: Other Renal/: Benign prostatic enlarg. Endocrine: No pertinent hx Past Surgical History Past Surgical History: Other Family History Family History: No Significant, High Cholestrol, Hypertension Social History Smoke: Quit (1 month ago, 50+ yr hx) ALCOHOL: none Drugs: Marijuana Current Problem List Problem List Problems Medical Problems: (1) Acute on chronic respiratory failure with hypoxia Status: Acute (2) COPD exacerbation Status: Acute (3) Dyspnea on exertion Status: Acute Current Medications Current Medications Current Medications Albuterol/ Ipratropium (Duoneb) 3 ml 1X ONCE NEB Last administered on 02/12/21at 12:32; Start 02/12/21 at 12:30; Stop 02/12/21 at 12:31; Status DC Iohexol (Omnipaque 350 Mg/ml) 100 ml 1X ONCE IV ; Start 02/12/21 at 13:45; Stop 02/12/21 at 13:46; Status DC Info (CONTRAST GIVEN -- Rx MONITORING) 1 each PRN DAILY PRN MC SEE COMMENTS; Start 02/12/21 at 13:45; Stop 02/14/21 at 13:44 Active Scripts Active Duoneb 0.5-3(2.5) Mg/3 Ml (Albuterol/Ipratropium) 3 Ml Ampul.neb 3 Ml NEB Q4HRS 30 Days Eliquis (Apixaban) 5 Mg Tablet 5 Mg PO BID 30 Days Prednisone 50 Mg Tablet 1 Tab PO DAILY Lisinopril 5 Mg Tablet 0.5 Tab PO QHS Atorvastatin Calcium 80 Mg Tablet 80 Mg PO QHS 30 Days Proair Hfa Inhaler (Albuterol Sulfate) 8.5 Gm Hfa.aer.ad 1 Puff INH PRN Q6HRS PRN 30 Days Reported Clopidogrel (Clopidogrel Bisulfate) 75 Mg Tablet 75 Mg PO DAILY NITROGLYCERIN SubLingual (Nitroglycerin) 0.4 Mg Tab.subl 0.4 Mg SL PRN Q5MIN PRN Flonase Allergy Relief (Fluticasone Propionate) 9.9 Ml [place].susp 2 Sprays NS DAILY Protonix (Pantoprazole Sodium) 20 Mg Tablet.dr 40 Mg PO DAILY Lisinopril 5 Mg Tablet 1 Tab PO DAILY Symbicort 160-4.5 Mcg Inhaler (Budesonide/Formoterol Fumarate) 10.2 Gm Hfa.aer.ad 1 Puff IH BID Allergies Allergies: Coded Allergies: No Known Drug Allergies (Unverified , 06/04/19) ROS General: YES: Fatigue; No: Chills, Night Sweats, Malaise, Appetite, Other PSYCHOLOGICAL ROS: No: Anxiety, Behavioral Disorder, Concentration difficultie, Decreased libido, Depression, Disorientation, Hallucinations, Hostility, Irritablity, Memory difficulties, Mood Swings, Obsessive thoughts, Physical a buse, Sexual abuse, Sleep disturbances, Suicidal ideation, Other Eyes: No Blurry vision, No Decreased vision, No Double vision, No Dry eyes, No Excessive tearing, No Eye Pain, No Itchy Eyes, No Loss of vision, No Photophobia, No Scotomata, No Uses contacts, No Uses glasses, No Other HEENT: No: Heacaches, Visual Changes, Hearing change, Nasal congestion, Nasal discharge, Oral lesions, Sinus pain, Sore Throat, Epistaxis, Sneezing, Snoring, Tinnitus, Vertigo, Vocal changes, Other Respiratory: YES: Cough, Shortness of breath, SOB with excertion; No: Hemoptysis, Orthopnea, Pleuritic Pain, Sputum Changes, Stridor, Tachypnea, Wheezing, Other Cardiovascular: No Chest Pain, No Palpitations, No Orthopnea, No Paroxysmal Noc. Dyspnea, No Edema, No Lt Headedness, No Other Gastrointestinal: No Nausea, No Vomiting, No Abdominal Pain, No Diarrhea, No Co nstipation, No Melena, No Hematochezia, No Other Genitourinary: No Dysuria, No Frequency, No Incontinence, No Hematuria, No Retention, No Discharge, No Urgency, No Pain, No Flank Pain, No Other, No , No , No , No , No , No , No Musculoskeletal: No Gait Disturbance, No Joint Pain, No Joint Stiffness, No Joint Swelling, No Muscle Pain, No Muscular Weakness, No Pain In:, No Swelling In:, No Other Neurological: No Behavorial Changes, No Bowel/Bladder ControlChng, No Confusion, No Dizziness, No Gait Disturbance, No Headaches, No Impaired Coord/balance, No Memory Loss, No Numbness/Tingling, No Seizures, No Speech Problems, No Tremors, No Visual Changes, No Weakness, No Other Skin: Yes Dry Skin; No Eczema, No Hair Changes, No Lumps, No Mole Changes, No Mottling, No Nail Changes, No Pruritus, No Rash, No Skin Lesion Changes, No Other, No Acne Physical Exam General: Alert, Cooperative, mild distress HEENT: Mucous membr. moist/pink Lungs: Other (rales, mod volume, lung expanded on exam ) Heart: no gallops Abdomen: Soft (about a 5cm ventral hernia, some pain to palp, prior mesh placed) Extremities: No cyanosis, No edema Skin: No breakdown Neuro: Normal speech, Normal tone, Sensation intact Psych/Mental Status: Mental status NL, Mood NL Vitals Vitals Vital Signs Date Time Temp Pulse Resp B/P (MAP) Pulse Ox O2 Delivery O2 Flow Rate FiO2 02/12/21 12:04 98.0 110 34 113/69 (84) 94 Nasal Cannula 3.0 98.0 Labs Labs Laboratory Tests Test 02/12/21 12:20 02/12/21 14:00 White Blood Count 7.5 x10^3/uL (4.0-11.0) Red Blood Count 4.46 x10^6/uL (4.30-5.70) Hemoglobin 12.9 g/dL (13.0-17.5) Hematocrit 39.0 % (39.0-53.0) Mean Corpuscular Volume 87 fL (79-100) Mean Corpuscular Hemoglobin 29 pg (25-35) Mean Corpuscular Hemoglobin Concent 33 g/dL (31-37) Red Cell Distribution Width 12.5 % (11.5-14.5) Platelet Count 277 x10^3/uL (140-400) Neutrophils (%) (Auto) 65 % (31-73) Lymphocytes (%) (Auto) 19 % (24-48) Monocytes (%) (Auto) 13 % (0-9) Eosinophils (%) (Auto) 3 % (0-3) Basophils (%) (Auto) 0 % (0-3) Neutrophils # (Auto) 4.9 x10^3/uL (1.8-7.7) Lymphocytes # (Auto) 1.4 x10^3/uL (1.0-4.8) Monocytes # (Auto) 1.0 x10^3/uL (0.0-1.1) Eosinophils # (Auto) 0.2 x10^3/uL (0.0-0.7) Basophils # (Auto) 0.0 x10^3/uL (0.0-0.2) Sodium Level 136 mmol/L (136-145) Potassium Level 4.1 mmol/L (3.5-5.1) Chloride Level 100 mmol/L (98-107) Carbon Dioxide Level 34 mmol/L (21-32) Anion Gap 2 (6-14) Blood Urea Nitrogen 21 mg/dL (8-26) Creatinine 1.0 mg/dL (0.7-1.3) Estimated GFR (Cockcroft-Gault) 73.7 BUN/Creatinine Ratio 21 (6-20) Glucose Level 92 mg/dL (70-99) Calcium Level 9.3 mg/dL (8.5-10.1) Total Bilirubin 0.4 mg/dL (0.2-1.0) Aspartate Amino Transf (AST/SGOT) 24 U/L (15-37) Alanine Aminotransferase (ALT/SGPT) 36 U/L (16-63) Alkaline Phosphatase 176 U/L (46-116) Creatine Kinase 44 U/L (39-308) Creatine Kinase MB (Mass) 0.8 ng/mL (0.0-3.6) Creatine Kinase MB Relative Index % (0-4) Troponin I High Sensitivity 8 ng/L (4-75) JW-Rfz-W-Type Natriuretic Peptide 227 pg/mL (0-124) Total Protein 7.9 g/dL (6.4-8.2) Albumin 3.5 g/dL (3.4-5.0) Albumin/Globulin Ratio 0.8 (1.0-1.7) SARS-CoV-2 Antigen (Rapid) Negative (NEGATIVE) Laboratory Tests Test 02/12/21 12:20 02/12/21 14:00 White Blood Count 7.5 x10^3/uL (4.0-11.0) Red Blood Count 4.46 x10^6/uL (4.30-5.70) Hemoglobin 12.9 g/dL (13.0-17.5) Hematocrit 39.0 % (39.0-53.0) Mean Corpuscular Volume 87 fL (79-100) Mean Corpuscular Hemoglobin 29 pg (25-35) Mean Corpuscular Hemoglobin Concent 33 g/dL (31-37) Red Cell Distribution Width 12.5 % (11.5-14.5) Platelet Count 277 x10^3/uL (140-400) Neutrophils (%) (Auto) 65 % (31-73) Lymphocytes (%) (Auto) 19 % (24-48) Monocytes (%) (Auto) 13 % (0-9) Eosinophils (%) (Auto) 3 % (0-3) Basophils (%) (Auto) 0 % (0-3) Neutrophils # (Auto) 4.9 x10^3/uL (1.8-7.7) Lymphocytes # (Auto) 1.4 x10^3/uL (1.0-4.8) Monocytes # (Auto) 1.0 x10^3/uL (0.0-1.1) Eosinophils # (Auto) 0.2 x10^3/uL (0.0-0.7) Basophils # (Auto) 0.0 x10^3/uL (0.0-0.2) Sodium Level 136 mmol/L (136-145) Potassium Level 4.1 mmol/L (3.5-5.1) Chloride Level 100 mmol/L (98-107) Carbon Dioxide Level 34 mmol/L (21-32) Anion Gap 2 (6-14) Blood Urea Nitrogen 21 mg/dL (8-26) Creatinine 1.0 mg/dL (0.7-1.3) Estimated GFR (Cockcroft-Gault) 73.7 BUN/Creatinine Ratio 21 (6-20) Glucose Level 92 mg/dL (70-99) Calcium Level 9.3 mg/dL (8.5-10.1) Total Bilirubin 0.4 mg/dL (0.2-1.0) Aspartate Amino Transf (AST/SGOT) 24 U/L (15-37) Alanine Aminotransferase (ALT/SGPT) 36 U/L (16-63) Alkaline Phosphatase 176 U/L (46-116) Creatine Kinase 44 U/L (39-308) Creatine Kinase MB (Mass) 0.8 ng/mL (0.0-3.6) Creatine Kinase MB Relative Index % (0-4) Troponin I High Sensitivity 8 ng/L (4-75) UZ-Hmz-G-Type Natriuretic Peptide 227 pg/mL (0-124) Total Protein 7.9 g/dL (6.4-8.2) Albumin 3.5 g/dL (3.4-5.0) Albumin/Globulin Ratio 0.8 (1.0-1.7) SARS-CoV-2 Antigen (Rapid) Negative (NEGATIVE) VTE Prophylaxis Ordered VTE Prophylaxis Devices: No VTE Pharmacological Prophylaxi: Yes Assessment/Plan Assessment/Plan Acute hypoxic and hypercarbic respiratory failure COPD with acute exacerbation, 2 abx, IV steroids, nebs, try to transition to PO steroid in AM, PULM consult + SIRS, tachycardia and tachypnea hx of lung cancer, htn Afib, stable on tele in ER Justifications for Admission Other Justification STORM CURRAN MD Feb 12, 2021 18:17
[2021-02-12] MEDS ORDERED: methylPREDNISolone SOD SUCC PF 40 MG/ML VIAL. IV ONE (18:30)
[2021-02-12] MEDS ORDERED: IPRATRPIUM/ALBUTEROL 0.5/2.5MG 3 ML NEBU. NEB SCH ×2 (20:00)
[2021-02-12] MEDS: IPRATROPIUM/ALBUTEROL 20/100mcg/INH INHALER. INH SCH (20:20)
[2021-02-12] MEDS: APIXABAN 5 MG TABLET. PO SCH (23:15)
[2021-02-12] MEDS: cefTRIAXone IV Push 1 GM VIAL. IVP SCH (23:15)
[2021-02-12] MEDS: DOXYCYCLINE HYCLATE 100 MG TABLET PO SCH (23:15)
[2021-02-12 23:56] VITALS: BP 97/56
[2021-02-13 03:16] VITALS: BP 107/58
[2021-02-13 07:00] VITALS: BP 103/56
[2021-02-13] MEDS: LISINOPRIL 5 MG TABLET. PO SCH (07:50)
[2021-02-13] MEDS: CLOPIDOGREL BISULFATE 75 MG TABLET PO SCH (08:52)
[2021-02-13] MEDS: DOXYCYCLINE HYCLATE 100 MG TABLET PO SCH ×2 (08:52→20:00)
[2021-02-13] MEDS: APIXABAN 5 MG TABLET. PO SCH ×2 (08:52→20:00)
[2021-02-13] MEDS: methylPREDNISolone SOD SUCC PF 40 MG/ML VIAL. IV SCH ×2 (08:52→20:00)
[2021-02-13] MEDS: IPRATROPIUM/ALBUTEROL 20/100mcg/INH INHALER. INH SCH ×4 (08:53→20:00)
[2021-02-13] MEDS ORDERED: predniSONE 20 MG TABLET PO SCH (09:00)
--- NOTE | 2021-02-13 09:01 | PDOC ---
[employer] PROGRESS NOTE Date of Service DOS: DATE: 02/13/21 TIME: 08:59 Chief Complaint Chief Complaint COPD exacerbation Clinical pneumonia Chest pain History of the following: Cardiovascular: CAD, HTN, Hyperlipidemia, Other Pulmonary: COPD CENTRAL NERVOUS SYSTEM: Other GI: No pertinent hx Heme/Onc: Cancer Hepatobiliary: Hep A/B/C Psych: No pertinent hx Musculoskeletal: Osteoarthritis Rheumatologic: No pertinent hx Infectious disease: Other Renal/: Benign prostatic enlarg History of Present Illness History of Present Illness 02/13/2021 Patient seen and examined Seems to be in mild distress On O2 per nasal cannula at 4 L Satting in the low 90s States he quit smoking a month ago He is complaining of some chest discomfort He is on oxygen I ordered some IV steroids I also consulted cardiology Discussed with RN Discussed with case management Vitals/I&O Vitals/I&O: Vital Signs Date Time Temp Pulse Resp B/P (MAP) Pulse Ox O2 Delivery O2 Flow Rate FiO2 02/13/21 07:50 94 107/58 02/13/21 07:00 97.7 20 96 Nasal Cannula 4.0 97.7 I & O 02/12/21 02/12/21 02/13/21 15:00 23:00 07:00 Output Total 450 ml Balance -450 ml Physical Exam General: Alert, Cooperative, mild distress Lungs: Wheezing Abdomen: Soft (about a 5cm ventral hernia, some pain to palp, prior mesh placed) Extremities: No cyanosis, No edema Skin: No breakdown Labs Labs: Laboratory Tests Test 02/12/21 12:20 02/12/21 14:00 White Blood Count 7.5 x10^3/uL (4.0-11.0) Red Blood Count 4.46 x10^6/uL (4.30-5.70) Hemoglobin 12.9 g/dL (13.0-17.5) Hematocrit 39.0 % (39.0-53.0) Mean Corpuscular Volume 87 fL (79-100) Mean Corpuscular Hemoglobin 29 pg (25-35) Mean Corpuscular Hemoglobin Concent 33 g/dL (31-37) Red Cell Distribution Width 12.5 % (11.5-14.5) Platelet Count 277 x10^3/uL (140-400) Neutrophils (%) (Auto) 65 % (31-73) Lymphocytes (%) (Auto) 19 % (24-48) Monocytes (%) (Auto) 13 % (0-9) Eosinophils (%) (Auto) 3 % (0-3) Basophils (%) (Auto) 0 % (0-3) Neutrophils # (Auto) 4.9 x10^3/uL (1.8-7.7) Lymphocytes # (Auto) 1.4 x10^3/uL (1.0-4.8) Monocytes # (Auto) 1.0 x10^3/uL (0.0-1.1) Eosinophils # (Auto) 0.2 x10^3/uL (0.0-0.7) Basophils # (Auto) 0.0 x10^3/uL (0.0-0.2) Sodium Level 136 mmol/L (136-145) Potassium Level 4.1 mmol/L (3.5-5.1) Chloride Level 100 mmol/L (98-107) Carbon Dioxide Level 34 mmol/L (21-32) Anion Gap 2 (6-14) Blood Urea Nitrogen 21 mg/dL (8-26) Creatinine 1.0 mg/dL (0.7-1.3) Estimated GFR (Cockcroft-Gault) 73.7 BUN/Creatinine Ratio 21 (6-20) Glucose Level 92 mg/dL (70-99) Calcium Level 9.3 mg/dL (8.5-10.1) Total Bilirubin 0.4 mg/dL (0.2-1.0) Aspartate Amino Transf (AST/SGOT) 24 U/L (15-37) Alanine Aminotransferase (ALT/SGPT) 36 U/L (16-63) Alkaline Phosphatase 176 U/L (46-116) Creatine Kinase 44 U/L (39-308) Creatine Kinase MB (Mass) 0.8 ng/mL (0.0-3.6) Creatine Kinase MB Relative Index % (0-4) Troponin I High Sensitivity 8 ng/L (4-75) XP-Ufl-C-Type Natriuretic Peptide 227 pg/mL (0-124) Total Protein 7.9 g/dL (6.4-8.2) Albumin 3.5 g/dL (3.4-5.0) Albumin/Globulin Ratio 0.8 (1.0-1.7) SARS-CoV-2 Antigen (Rapid) Negative (NEGATIVE) Assessment and Plan Assessmemt and Plan Problems Medical Problems: (1) Acute on chronic respiratory failure with hypoxia Status: Acute (2) COPD exacerbation Status: Acute (3) Dyspnea on exertion Status: Acute COPD exacerbation Clinical pneumonia Chest pain History of the following: Cardiovascular: CAD, HTN, Hyperlipidemia, Other Pulmonary: COPD CENTRAL NERVOUS SYSTEM: Other GI: No pertinent hx Heme/Onc: Cancer Hepatobiliary: Hep A/B/C Psych: No pertinent hx Musculoskeletal: Osteoarthritis Rheumatologic: No pertinent hx Infectious disease: Other Renal/: Benign prostatic enlarg Plan Consult cardiology IV steroids PUI O2 per nasal cannula IV antibiotics Pulmonary is consulted Home meds DVT prophylaxis Full code Long-term prognosis guarded if he does not continue to quit smoking Comment Review of Relevant I have reviewed the following items luis (where applicable) has been applied. Medications: Current Medications Medications (Trade) Dose Ordered Sig/Royal Route PRN Reason Start Time Stop Time Status Last Admin Dose Admin Albuterol/ Ipratropium (Duoneb) 3 ml 1X ONCE NEB 02/12/21 12:30 02/12/21 12:31 DC 02/12/21 12:32 Apixaban (Eliquis) 5 mg BID PO 02/12/21 21:00 02/13/21 08:52 Clopidogrel Bisulfate (Plavix) 75 mg DAILY PO 02/13/21 09:00 02/13/21 08:52 Methylprednisolone Sodium Succinate (SOLU-Medrol 40MG VIAL) 40 mg 1X ONCE IV 02/12/21 18:30 02/12/21 18:31 DC 02/12/21 23:24 Ceftriaxone Sodium (Rocephin) 1 gm Q24H IVP 02/12/21 18:30 02/12/21 23:15 Doxycycline Hyclate (Vibra-Tab) 100 mg BID PO 02/12/21 18:30 02/13/21 08:52 Albuterol/ Ipratropium (Combivent Respimat 20-100 Mcg) 1 puff RTQID INH 02/12/21 20:00 02/13/21 08:53 Methylprednisolone Sodium Succinate (SOLU-Medrol 40MG VIAL) 40 mg Q12HR IV 02/13/21 09:00 02/13/21 08:52 Justifications for Admission Other Justification MARILYN JOSÉ III DO Feb 13, 2021 09:01
--- NOTE | 2021-02-13 09:43 | CONS ---
DATE OF CONSULTATION: 02/13/2021 PULMONARY CONSULTATION ATTENDING PHYSICIAN: Dr. Onofre. REASON FOR CONSULTATION: Dyspnea. HISTORY OF PRESENT ILLNESS: The patient a 70-year-old male who has a history of severe COPD, which is oxygen dependent. He is on oxygen at 3 liters on a 24-hour basis. He has been followed by my partner, Dr. Sidhu in the office. He also has a history of lung cancer, status post radiation. No chemo or surgery. He was brought into the hospital after he was having some increasing dyspnea. He has a cough with yellow sputum production. No hemoptysis. He said he has some nonspecific burning in the chest as well. The patient had received oral prednisone as an outpatient and it did not help. As a result, he was seen in the ER and hospitalized. The patient underwent CT angiogram, which was reviewed by me. There was no evidence of pulmonary embolism. There was evidence of severe pulmonary emphysema. The patient also has postradiation changes in the right lower lobe. Cardiology has also been consulted. I have been asked to see him for further evaluation. PAST MEDICAL HISTORY: CAD, history of hypertension, hyperlipidemia, history of severe COPD with chronic hypoxic respiratory failure, history of lung cancer of right lower lobe, status post radiation, history of osteoarthritis, BPH. SURGERIES: No recent surgeries. ALLERGIES: None. MEDICATIONS: Reviewed as listed in the [facility]AD including IV Solu-Medrol, Eliquis, DuoNeb, doxycycline and Rocephin. REVIEW OF SYSTEMS: A 12-point system obtained. Pertinent positives discussed in my present illness, otherwise noncontributory. All systems that were negative were reviewed as well. FAMILY HISTORY: Noncontributory to lungs. PHYSICAL EXAMINATION: VITAL SIGNS: Reviewed. They are stable. Afebrile, pulse ox 96% on 4 liters. NECK: Supple. LUNGS: Diminished breath sounds posteriorly. CARDIOVASCULAR: With a regular rate. ABDOMEN: Soft. EXTREMITIES: With no pitting edema. LABORATORY DATA: Reviewed. His rapid COVID test is negative. BUN 21, creatinine 1.0. White cell count 7.5, hemoglobin 12.9 and platelets are 277. IMPRESSION: 1. Dyspnea secondary to acute exacerbation of chronic obstructive pulmonary disease, triggered by acute bronchitis. 2. The patient with underlying severe emphysema, which is oxygen dependent at 3 liters on a 24-hour basis. 3. Chest pain. No evidence of pulmonary embolism. CT angiogram was reviewed. Cardiology is consulted. 4. History of lung cancer, status post radiation treatment in right lower lobe with postop treatment changes on the CT. RECOMMENDATIONS: 1. Continue present oxygen. His baseline level is 3 liters. 2. Continue with IV Solu-Medrol. 3. Empiric antibiotic. 4. Eliquis and Plavix per Cardiology. 5. The patient is status post 1 dose of Whyd vaccine for COVID. I have instructed him to receive the second dose post-discharge. 6. Currently pending PCR for COVID-19. Clinical suspicion is low. 7. We will follow along with you. ANA DR: Naima TID: [id number]
--- NOTE | 2021-02-13 10:40 | NUR ---
SW following. Discussed with RN, pt from home with anny 4L (uses 3L at home), regular diet, rapid COVID-19 negative. Pulmonology and Cardiology following. Per RN, pt normally gets around fine. SW will continue to follow.
--- NOTE | 2021-02-13 10:56 | PDOC2 ---
JAKOB PUCKETT DIGITAL EDITOR 02/13/21 1056: CARDIAC CONSULT DATE OF CONSULT Date of Consult DATE: 02/13/21 TIME: 10:56 REASON FOR CONSULT Reason for Consult: CAD, chest pain REFERRING PHYSICIAN Referring Physician: Jose Roberto SOURCE Source: Chart review, Patient HISTORY OF PRESENT ILLNESS HISTORY OF PRESENT ILLNESS This is a pleasant 70 yo male admitted for complains SOA and chest pain. He has been more SOA for 4 days and was recently treated with antibiotics. He has been using his nebulizer more often and has helped. No productive cough. His chest pain is sharp and across his chest. No palpitations, nausea or vomiting. No fever or chills. He has had his first covid-19 shot and due for the next one. PAST MEDICAL HISTORY Past Medical History Cardiovascular: CAD, HTN, Hyperlipidemia, Other (TAA) Pulmonary: COPD (severe and O2 dependent and bipap) CENTRAL NERVOUS SYSTEM: Other (No pertinent history) GI: No pertinent hx Heme/Onc: Cancer (Stage 2 NSCLCA, squamous cell ) Hepatobiliary: Hep A/B/C (remotely) Psych: No pertinent hx Musculoskeletal: Osteoarthritis Rheumatologic: No pertinent hx Infectious disease: Covid-19 ENT: No pertinent hx Renal/: Benign prostatic enlarg. PAST SURGICAL HISTORY Past Surgical History (PCI, Endovascular TAA repair FAMILY HISTORY Family History: Family History Unknown SOCIAL HISTORY Smoke: Quit (1 month ago) ALCOHOL: none Drugs: None Lives: with Family CURRENT MEDICATIONS CURRENT MEDICATIONS Current Medications Medications (Trade) Dose Ordered Sig/Royal Route PRN Reason Start Time Stop Time Status Last Admin Dose Admin Albuterol/ Ipratropium (Duoneb) 3 ml 1X ONCE NEB 02/12/21 12:30 02/12/21 12:31 DC 02/12/21 12:32 Apixaban (Eliquis) 5 mg BID PO 02/12/21 21:00 02/13/21 08:52 Clopidogrel Bisulfate (Plavix) 75 mg DAILY PO 02/13/21 09:00 02/13/21 08:52 Methylprednisolone Sodium Succinate (SOLU-Medrol 40MG VIAL) 40 mg 1X ONCE IV 02/12/21 18:30 02/12/21 18:31 DC 02/12/21 23:24 Ceftriaxone Sodium (Rocephin) 1 gm Q24H IVP 02/12/21 18:30 02/12/21 23:15 Doxycycline Hyclate (Vibra-Tab) 100 mg BID PO 02/12/21 18:30 02/13/21 08:52 Albuterol/ Ipratropium (Combivent Respimat 20-100 Mcg) 1 puff RTQID INH 02/12/21 20:00 02/13/21 09:26 DC 02/13/21 08:53 Methylprednisolone Sodium Succinate (SOLU-Medrol 40MG VIAL) 40 mg Q12HR IV 02/13/21 09:00 02/13/21 08:52 ALLERGIES ALLERGIES: Coded Allergies: No Known Drug Allergies (Unverified , 06/04/19) ROS Review of System 14 point ROS evaluated with pertinent positives noted per HPI PHYSICAL EXAM General: Alert, Oriented X3, Cooperative, No acute distress HEENT: Atraumatic, Mucous membr. moist/pink Lungs: Other (diminished) Heart: Regular rate (SR), Normal S1, Normal S2, No murmurs Abdomen: Soft, No tenderness Extremities: No cyanosis, No edema Skin: No breakdown, No significant lesion Neuro: Normal speech, Sensation intact Psych/Mental Status: Mental status NL, Mood NL MUSCULOSKELETAL: Osteoarthritic changes both hands VITALS/I&O VITALS/I&O: Vital Signs Date Time Temp Pulse Resp B/P (MAP) Pulse Ox O2 Delivery O2 Flow Rate FiO2 02/13/21 07:50 94 107/58 02/13/21 07:00 97.7 20 96 Nasal Cannula 4.0 97.7 I & O 02/12/21 02/12/21 02/13/21 15:00 23:00 07:00 Output Total 450 ml Balance -450 ml LABS Lab: Laboratory Tests Test 02/12/21 12:20 02/12/21 14:00 White Blood Count 7.5 x10^3/uL (4.0-11.0) Red Blood Count 4.46 x10^6/uL (4.30-5.70) Hemoglobin 12.9 g/dL (13.0-17.5) L Hematocrit 39.0 % (39.0-53.0) Mean Corpuscular Volume 87 fL (79-100) Mean Corpuscular Hemoglobin 29 pg (25-35) Mean Corpuscular Hemoglobin Concent 33 g/dL (31-37) Red Cell Distribution Width 12.5 % (11.5-14.5) Platelet Count 277 x10^3/uL (140-400) Neutrophils (%) (Auto) 65 % (31-73) Lymphocytes (%) (Auto) 19 % (24-48) L Monocytes (%) (Auto) 13 % (0-9) H Eosinophils (%) (Auto) 3 % (0-3) Basophils (%) (Auto) 0 % (0-3) Neutrophils # (Auto) 4.9 x10^3/uL (1.8-7.7) Lymphocytes # (Auto) 1.4 x10^3/uL (1.0-4.8) Monocytes # (Auto) 1.0 x10^3/uL (0.0-1.1) Eosinophils # (Auto) 0.2 x10^3/uL (0.0-0.7) Basophils # (Auto) 0.0 x10^3/uL (0.0-0.2) Sodium Level 136 mmol/L (136-145) Potassium Level 4.1 mmol/L (3.5-5.1) Chloride Level 100 mmol/L (98-107) Carbon Dioxide Level 34 mmol/L (21-32) H Anion Gap 2 (6-14) L Blood Urea Nitrogen 21 mg/dL (8-26) Creatinine 1.0 mg/dL (0.7-1.3) Estimated GFR (Cockcroft-Gault) 73.7 BUN/Creatinine Ratio 21 (6-20) H Glucose Level 92 mg/dL (70-99) Calcium Level 9.3 mg/dL (8.5-10.1) Total Bilirubin 0.4 mg/dL (0.2-1.0) Aspartate Amino Transferase (AST) 24 U/L (15-37) Alanine Aminotransferase (ALT) 36 U/L (16-63) Alkaline Phosphatase 176 U/L (46-116) H Creatine Kinase 44 U/L (39-308) Creatine Kinase MB (Mass) 0.8 ng/mL (0.0-3.6) Creatine Kinase MB Relative Index % (0-4) Troponin I High Sensitivity 8 ng/L (4-75) DH-Knv-L-Type Natriuretic Peptide 227 pg/mL (0-124) H Total Protein 7.9 g/dL (6.4-8.2) Albumin 3.5 g/dL (3.4-5.0) Albumin/Globulin Ratio 0.8 (1.0-1.7) L SARS-CoV-2 RNA (KYLEIGH) Negative (Negative) SARS-CoV-2 Antigen (Rapid) Negative (NEGATIVE) Laboratory Tests 02/12/21 12:20 Laboratory Tests 02/12/21 12:20 ECHOCARDIOGRAM ECHOCARDIOGRAM <Conclusion> The left ventricle is normal size. The left ventricular systolic function is normal and the ejection fraction is within normal range. Left ventricular ejection fraction of 55 to 60%. Doppler and Color Flow revealed no significant aortic regurgitation. There is no significant aortic valvular stenosis. Doppler and Color-flow revealed trace mitral regurgitation. Doppler and Color Flow revealed trace tricuspid valve regurgitation. DATE: 12/14/20 [id number] ASSESSMENT/PLAN ASSESSMENT/PLAN 1. Atypical Chest pain: suspect MSK 2. AECOPD: sever with continuous home O2 use 3. PAFIB: Maintaining SR 4. NSCLCA: Stage 2 squamous cell, treted with radiation 5. CAD; BMS to proximal LAD and OM on 05/03/2019 6. Recent TAA endovascular repair: done prior to PCI 7. HLP Recommendations 1. Recent TTE reviewed nml EF and WM. Continue secondary prevention measures 2. Continue pulmonary optimization 3. Continue eliquis for stroke prevention. Continue plavix 4. Check FLP and will start on statin 5. Outpt ischemic workup BERTRAND CHOWDARY MD 02/13/21 1451: CARDIAC CONSULT ASSESSMENT/PLAN ASSESSMENT/PLAN Patient seen and examined. Agree with RN TELE's assessment and plan. Chest pain with atypical features and most probably musculoskeletal Recent 2D echo showed normal LV function without any wall motion abnormalities Plan for ischemic evaluation as an outpatient PAF maintaining sinus rhythm Continue Eliquis for stroke prophylaxis Continue current treatment for acute COPD exacerbation Thank you for your consultation JAKOB PUCKETT APRN Feb 13, 2021 10:56 BERTRAND CHOWDARY MD Feb 13, 2021 14:51
[2021-02-13 11:00] VITALS: BP 111/67
[2021-02-13 13:49] LABS: CHOLESTEROL/HDL RATIO 2.9
[2021-02-13 15:00] VITALS: BP 107/58
[2021-02-13] MEDS: cefTRIAXone IV Push 1 GM VIAL. IVP SCH (17:46)
[2021-02-13 19:00] VITALS: BP 112/61
[2021-02-13 23:27] VITALS: BP 105/64
[2021-02-14 03:31] VITALS: BP 107/59
[2021-02-14 07:00] VITALS: BP 115/77
--- NOTE | 2021-02-14 07:25 | PDOC ---
PULMONARY PROGRESS NOTES DATE: 02/14/21 TIME: 07:21 Subjective feels better no CP Vitals Vital Signs Date Time Temp Pulse Resp B/P (MAP) Pulse Ox O2 Delivery O2 Flow Rate FiO2 02/14/21 03:31 97.4 90 18 107/59 (75) 96 Nasal Cannula 4.0 97.4 General: Alert, No acute distress Lungs: Clear Cardiovascular: S1 Abdomen: Soft Extremities: No Edema Labs Laboratory Tests Test 02/12/21 12:20 02/12/21 14:00 02/13/21 12:45 White Blood Count 7.5 x10^3/uL (4.0-11.0) Red Blood Count 4.46 x10^6/uL (4.30-5.70) Hemoglobin 12.9 g/dL (13.0-17.5) Hematocrit 39.0 % (39.0-53.0) Mean Corpuscular Volume 87 fL (79-100) Mean Corpuscular Hemoglobin 29 pg (25-35) Mean Corpuscular Hemoglobin Concent 33 g/dL (31-37) Red Cell Distribution Width 12.5 % (11.5-14.5) Platelet Count 277 x10^3/uL (140-400) Neutrophils (%) (Auto) 65 % (31-73) Lymphocytes (%) (Auto) 19 % (24-48) Monocytes (%) (Auto) 13 % (0-9) Eosinophils (%) (Auto) 3 % (0-3) Basophils (%) (Auto) 0 % (0-3) Neutrophils # (Auto) 4.9 x10^3/uL (1.8-7.7) Lymphocytes # (Auto) 1.4 x10^3/uL (1.0-4.8) Monocytes # (Auto) 1.0 x10^3/uL (0.0-1.1) Eosinophils # (Auto) 0.2 x10^3/uL (0.0-0.7) Basophils # (Auto) 0.0 x10^3/uL (0.0-0.2) Sodium Level 136 mmol/L (136-145) Potassium Level 4.1 mmol/L (3.5-5.1) Chloride Level 100 mmol/L (98-107) Carbon Dioxide Level 34 mmol/L (21-32) Anion Gap 2 (6-14) Blood Urea Nitrogen 21 mg/dL (8-26) Creatinine 1.0 mg/dL (0.7-1.3) Estimated GFR (Cockcroft-Gault) 73.7 BUN/Creatinine Ratio 21 (6-20) Glucose Level 92 mg/dL (70-99) Calcium Level 9.3 mg/dL (8.5-10.1) Total Bilirubin 0.4 mg/dL (0.2-1.0) Aspartate Amino Transf (AST/SGOT) 24 U/L (15-37) Alanine Aminotransferase (ALT/SGPT) 36 U/L (16-63) Alkaline Phosphatase 176 U/L (46-116) Creatine Kinase 44 U/L (39-308) Creatine Kinase MB (Mass) 0.8 ng/mL (0.0-3.6) Creatine Kinase MB Relative Index % (0-4) Troponin I High Sensitivity 8 ng/L (4-75) 6 ng/L (4-75) QM-Ogj-O-Type Natriuretic Peptide 227 pg/mL (0-124) Total Protein 7.9 g/dL (6.4-8.2) Albumin 3.5 g/dL (3.4-5.0) Albumin/Globulin Ratio 0.8 (1.0-1.7) SARS-CoV-2 RNA (KYLEIGH) Negative (Negative) SARS-CoV-2 Antigen (Rapid) Negative (NEGATIVE) Triglycerides Level 54 mg/dL (0-150) Cholesterol Level 155 mg/dL (0-200) LDL Cholesterol, Calculated 90 mg/dL (0-100) VLDL Cholesterol, Calculated 11 mg/dL (0-40) Non-HDL Cholesterol Calculated 101 mg/dL (0-129) HDL Cholesterol 54 mg/dL (40-60) Cholesterol/HDL Ratio 2.9 Laboratory Tests Test 02/13/21 12:45 Troponin I High Sensitivity 6 ng/L (4-75) Triglycerides Level 54 mg/dL (0-150) Cholesterol Level 155 mg/dL (0-200) LDL Cholesterol, Calculated 90 mg/dL (0-100) VLDL Cholesterol, Calculated 11 mg/dL (0-40) Non-HDL Cholesterol Calculated 101 mg/dL (0-129) HDL Cholesterol 54 mg/dL (40-60) Cholesterol/HDL Ratio 2.9 Medications Active Scripts Medications Dose Route/Sig Max Daily Dose Days Date Category Duoneb 0.5-3(2.5) Mg/3 Ml (Albuterol/Ipratropium) 3 Ml Ampul.neb 3 Ml NEB Q4HRS 30 01/15/21 Rx Eliquis (Apixaban) 5 Mg Tablet 5 Mg PO BID 30 01/15/21 Rx Prednisone 50 Mg Tablet 1 Tab PO DAILY 01/15/21 Rx Lisinopril 5 Mg Tablet 0.5 Tab PO QHS 01/15/21 Rx Atorvastatin Calcium 80 Mg Tablet 80 Mg PO QHS 30 01/15/21 Rx Proair Hfa Inhaler (Albuterol Sulfate) 8.5 Gm Hfa.aer.ad 1 Puff INH PRN Q6HRS PRN 30 01/15/21 Rx Clopidogrel (Clopidogrel Bisulfate) 75 Mg Tablet 75 Mg PO DAILY 02/29/20 Reported NITROGLYCERIN SubLingual (Nitroglycerin) 0.4 Mg Tab.subl 0.4 Mg SL PRN Q5MIN PRN 01/06/20 Reported Flonase Allergy Relief (Fluticasone Propionate) 9.9 Ml [place].susp 2 Sprays NS DAILY 01/06/20 Reported Protonix (Pantoprazole Sodium) 20 Mg Tablet.dr 40 Mg PO DAILY 01/06/20 Reported Lisinopril 5 Mg Tablet 1 Tab PO DAILY 01/06/20 Reported Symbicort 160-4.5 Mcg Inhaler (Budesonide/Formoterol Fumarate) 10.2 Gm Hfa.aer.ad 1 Puff IH BID 11/27/17 Reported Impression . 1. Dyspnea secondary to acute exacerbation of chronic obstructive pulmonary disease, triggered by acute bronchitis. improved 2. The patient with underlying severe emphysema, which is oxygen dependent at 3 liters on a 24-hour basis. 3. Chest pain. No evidence of pulmonary embolism. CT angiogram was reviewed. Cardiology is consulted. 4. History of lung cancer, status post radiation treatment in right lower lobe with postop treatment changes on the CT. R Plan . 1. Continue present oxygen. His baseline level is 3 liters. 2. Continue with IV Solu-Medrol. can change to PO 3. Empiric antibiotic. 4. Eliquis and Plavix per Cardiology. 5. The patient is status post 1 dose of LOAG vaccine for COVID. I have instructed him to receive the second dose post-discharge. 6. COVID-19. Clinical suspicion is low. 7. ok to dc home today JESUS HARRY MD Feb 14, 2021 07:25
[2021-02-14] MEDS: APIXABAN 5 MG TABLET. PO SCH ×2 (08:15→21:00)
[2021-02-14] MEDS: CLOPIDOGREL BISULFATE 75 MG TABLET PO SCH (08:15)
[2021-02-14] MEDS: methylPREDNISolone SOD SUCC PF 40 MG/ML VIAL. IV SCH ×2 (08:15→21:39)
[2021-02-14] MEDS: IPRATROPIUM/ALBUTEROL 20/100mcg/INH INHALER. INH SCH ×4 (08:15→21:40)
[2021-02-14] MEDS: DOXYCYCLINE HYCLATE 100 MG TABLET PO SCH ×2 (08:15→21:39)
[2021-02-14] MEDS: LISINOPRIL 5 MG TABLET. PO SCH (08:15)
[2021-02-14] MEDS ORDERED: ANTI-COAG MONITOR BY PHARMACY. MC PRN (10:45)
[2021-02-14 11:00] VITALS: BP 111/55
--- NOTE | 2021-02-14 11:14 | PDOC ---
[employer] PROGRESS NOTE Date of Service DOS: DATE: 02/14/21 TIME: 11:11 Chief Complaint Chief Complaint COPD exacerbation Clinical pneumonia Chest pain History of the following: Cardiovascular: CAD, HTN, Hyperlipidemia, Other Pulmonary: COPD CENTRAL NERVOUS SYSTEM: Other GI: No pertinent hx Heme/Onc: Cancer Hepatobiliary: Hep A/B/C Psych: No pertinent hx Musculoskeletal: Osteoarthritis Rheumatologic: No pertinent hx Infectious disease: Other Renal/: Benign prostatic enlarg History of Present Illness History of Present Illness 02/14/2021 Patient seen and examined He is having a little bit of hematuria this morning Pulmonary seymour he is doing better Chart reviewed Discussed with RN Discussed with case management Pulmonary is okay with discharge so I will let him go I left a prescription for a appointment at urology if it can be arranged also he is considering going to [facility] 02/13/2021 Patient seen and examined Seems to be in mild distress On O2 per nasal cannula at 4 L Satting in the low 90s States he quit smoking a month ago He is complaining of some chest discomfort He is on oxygen I ordered some IV steroids I also consulted cardiology Discussed with RN Discussed with case management Vitals/I&O Vitals/I&O: Vital Signs Date Time Temp Pulse Resp B/P (MAP) Pulse Ox O2 Delivery O2 Flow Rate FiO2 02/14/21 11:00 97.4 91 21 111/55 (73) 94 Nasal Cannula 4.0 97.4 I & O 02/13/21 02/13/21 02/14/21 15:00 23:00 07:00 Intake Total 240 ml 360 ml Output Total 250 ml 450 ml 650 ml Balance -250 ml -210 ml -290 ml Physical Exam General: Alert, Oriented X3, Cooperative, No acute distress Heart: Regular rate (SR), Normal S1, Normal S2, No murmurs Lungs: Clear Abdomen: Soft, No tenderness Extremities: No cyanosis, No edema Skin: No breakdown, No significant lesion Labs Labs: Laboratory Tests Test 02/13/21 12:45 Troponin I High Sensitivity 6 ng/L (4-75) Triglycerides Level 54 mg/dL (0-150) Cholesterol Level 155 mg/dL (0-200) LDL Cholesterol, Calculated 90 mg/dL (0-100) VLDL Cholesterol, Calculated 11 mg/dL (0-40) Non-HDL Cholesterol Calculated 101 mg/dL (0-129) HDL Cholesterol 54 mg/dL (40-60) Cholesterol/HDL Ratio 2.9 Assessment and Plan Assessmemt and Plan Problems Medical Problems: (1) Acute on chronic respiratory failure with hypoxia Status: Acute (2) COPD exacerbation Status: Acute (3) Dyspnea on exertion Status: Acute COPD exacerbation Clinical pneumonia Atypical chest pain History of the following: Cardiovascular: CAD, HTN, Hyperlipidemia, Other Pulmonary: COPD CENTRAL NERVOUS SYSTEM: Other GI: No pertinent hx Heme/Onc: Cancer Hepatobiliary: Hep A/B/C Psych: No pertinent hx Musculoskeletal: Osteoarthritis Rheumatologic: No pertinent hx Infectious disease: Other Renal/: Benign prostatic enlarg Plan Hope to discharge this afternoon and follow-up with [facility] For now continue the following: Consult cardiology appreciated IV steroids PUI O2 per nasal cannula IV antibiotics Pulmonary is consulted Home meds DVT prophylaxis Full code Long-term prognosis guarded if he does not continue to quit smoking Discharge this afternoon Comment Review of Relevant I have reviewed the following items luis (where applicable) has been applied. Medications: Current Medications Medications (Trade) Dose Ordered Sig/Royal Route PRN Reason Start Time Stop Time Status Last Admin Dose Admin Albuterol/ Ipratropium (Combivent Respimat 20-100 Mcg) 2 puff RTQID INH 02/13/21 12:00 02/14/21 08:15 Info (Anti-Coagulation Monitoring By Pharmacy) 1 each PRN DAILY PRN MC PER PROTOCOL 02/14/21 10:45 02/14/21 10:36 Justifications for Admission Other Justification MARILYN JOSÉ III DO Feb 14, 2021 11:14
--- NOTE | 2021-02-14 11:17 | SNU/HH DC ---
DISCHARGE WITH HOME HEALTH DISCHARGE INFORMATION: Final Diagnosis: Problems Medical Problems: (1) Acute on chronic respiratory failure with hypoxia Status: Acute (2) COPD exacerbation Status: Acute (3) Dyspnea on exertion Status: Acute Condition on Discharge: Stable CODE STATUS: Code Status: Full HOME HEALTH: Face to Face: I certify this patient is under my care and that I, or a nurse practitioner or physician's animal care assistant working with me, had a face to face encounter that meets the physician face to face encounter requirements with this patient on []. Medical Complications: COPD Longterm For: Assess Cardiopulm Status RN For Eval/Treatment: Yes Physical Therapy For: Evalulation/Treatment Occupational Therapy For: Evaluation/Treatment Home Health Aide For: Self-care SUCTION WORKER For: Community Resources Pt Meets Homebound Status: Unsteady balance w/ amb, POST DISCHARGE ORDERS: Activity Instructions for Disc: Activity as tolerated Weight Bearing Status after Di: Full weight bearing DIET AFTER DISCHARGE: Cardiac Wound/Incision Care: May get incision wet CHECKS AFTER DISCHARGE: Checks after discharge: Check blood press - daily TREATMENT/EQUIPMENT ORDERS: Adaptive Equipment Issued: Walker Discharge Respiratory Equipmen: Oxygen CERTIFICATION STATEMENT: Certification Statement: Certification Statement: Based on the above finding, I certify that this patient is confined to the home and needs intermittent mcfp care, physical therapy and/or speech therapy, or continues to need occupational therapy.~ This patient is under my care, and I have initiated the establishment of the plan of care.~ This patient will be followed by myself or a community physician who will periodically review the plan of care. Home Meds Active Scripts Ipratropium/Albuterol Sulfate (DUONEB 0.5-3(2.5) MG/3 ML) 3 Ml Ampul.neb, 3 ML NEB Q4HRS for COPD for 30 Days, #180 EACH Prov:TAL KIM DO 01/15/21 Apixaban (ELIQUIS) 5 Mg Tablet, 5 MG PO BID for 30 Days, #60 TAB Prov:TAL KIM DO 01/15/21 Prednisone (PREDNISONE) 50 Mg Tablet, 1 TAB PO DAILY, #5 TAB Prov:TAL KIM DO 01/15/21 Lisinopril (LISINOPRIL) 5 Mg Tablet, 0.5 TAB PO QHS for htn, #30 TAB 5 Refills Prov:JULIOTAL Stas DO 01/15/21 Atorvastatin Calcium (Atorvastatin Calcium) 80 Mg Tablet, 80 MG PO QHS for FOR HIGH CHOLESTEROL for 30 Days, #30 TAB Prov:TAL KIM DO 01/15/21 Albuterol Sulfate (PROAIR HFA INHALER) 8.5 Gm Hfa.aer.ad, 1 PUFF INH PRN Q6HRS PRN for SHORTNESS OF BREATH for 30 Days, #1 INHALER Prov:TAL KIM DO 01/15/21 Reported Medications Clopidogrel Bisulfate (CLOPIDOGREL) 75 Mg Tablet, 75 MG PO DAILY for TO PREVENT BLOOD CLOTS, #30 TAB 0 Refills 02/29/20 Nitroglycerin (NITROGLYCERIN SubLingual) 0.4 Mg Tab.subl, 0.4 MG SL PRN Q5MIN PRN for CHEST PAIN, BOTTLE 01/06/20 Fluticasone Propionate (Flonase Allergy Relief) 9.9 Ml [place].susp, 2 SPRAYS NS DAILY for allergy, BOTTLE 01/06/20 Pantoprazole Sodium (PROTONIX) 20 Mg Tablet.dr, 40 MG PO DAILY for gerd, TAB 01/06/20 Lisinopril (LISINOPRIL) 5 Mg Tablet, 1 TAB PO DAILY for htn, #30 TAB 5 Refills 01/06/20 Budesonide/Formoterol Fumarate (SYMBICORT 160-4.5 MCG INHALER) 10.2 Gm Hfa.aer.ad, 1 PUFF IH BID for COPD 11/27/17 MARILYN JOSÉ III DO Feb 14, 2021 11:17
--- NOTE | 2021-02-14 11:28 | NUR ---
SW following. Discussed with RN, discharge order for home with self care. RN advised no SW needs.
[2021-02-14] MEDS ORDERED: METOPROLOL IV PUSH 5 MG/5 ML VIAL. IVP ONE (11:30)
--- NOTE | 2021-02-14 11:30 | PDOC ---
JAKOB PUCKETT CERTIFIED WELDING INSPECTOR 02/14/21 1129: CARDIO Progress Notes Date and Time Date of Service 02/14/2021 Time of Evaluation 1040 Subjective Subjective: No Chest Pain, No shortness of breath, No Palpitations Vitals Vitals Vital Signs Date Time Temp Pulse Resp B/P (MAP) Pulse Ox O2 Delivery O2 Flow Rate FiO2 02/14/21 11:00 97.4 91 21 111/55 (73) 94 Nasal Cannula 4.0 97.4 Weight Weight [ ] Input and Output Intake and Output Intake and Output 02/14/21 07:00 Intake Total 600 ml Output Total 1350 ml Balance -750 ml Intake Oral 600 ml Output Urine Total 1350 ml Laboratory Labs Laboratory Tests Test 02/13/21 12:45 Troponin I High Sensitivity 6 ng/L (4-75) Triglycerides Level 54 mg/dL (0-150) Cholesterol Level 155 mg/dL (0-200) LDL Cholesterol, Calculated 90 mg/dL (0-100) VLDL Cholesterol, Calculated 11 mg/dL (0-40) Non-HDL Cholesterol Calculated 101 mg/dL (0-129) HDL Cholesterol 54 mg/dL (40-60) Cholesterol/HDL Ratio 2.9 Microbiology Micro Microbiology 02/12/21 Blood Culture - Preliminary, Resulted NO GROWTH AFTER 1 DAY Physical Exam HEENT: Neck Supple W Full Motion Chest: Symmetric LUNGS: Clear to Auscultation Heart: S1S2, RRR (SR) Abdomen: Soft N/T Extremities: No Edema, No Calf Tenderness Neurology: alert, oriented, follow commands Assessment Assessment 1. Atypical Chest pain: suspect MSK 2. AECOPD: sever with continuous home O2 use 3. PAFIB: Maintaining SR 4. NSCLCA: Stage 2 squamous cell, treted with radiation 5. CAD; BMS to proximal LAD and OM on 05/03/2019, clinically stable 6. Recent TAA endovascular repair: done prior to PCI 7. HLP 8. Hematuria: per PCP Recommendations 1. Recent TTE reviewed nml EF and WM. Continue secondary prevention measures 2. Continue pulmonary optimization 3. If hematuria continues then could hold plavix and eliquis and start on ASA. follow up with urology 4. Outpt ischemic workup Justicifation of Admission Dx: Justifications for Admission: Justification of Admission Dx: Yes Respiratory Failure: Severe Resp Distress BERTRAND CHOWDARY MD 02/15/21 1132: CARDIO Progress Notes Assessment Assessment Patient seen and examined 02/14/2021. Agree with VEHICLE WASHER's assessment and plan. Chest pain with atypical features and most probably musculoskeletal Recent 2D echo showed normal LV function without any wall motion abnormalities Plan for ischemic evaluation as an outpatient PAF maintaining sinus rhythm Continue Eliquis for stroke prophylaxis Continue current treatment for acute COPD exacerbation JAKOB PUCKETT APRN Feb 14, 2021 11:29 BERTRAND CHOWDARY MD Feb 15, 2021 11:32
--- NOTE | 2021-02-14 11:47 | DS ---
DATE OF DISCHARGE: 02/14/2021 ADMITTING DIAGNOSIS: Chronic obstructive pulmonary disease exacerbation. DISCHARGE DIAGNOSES: Resolving chronic obstructive pulmonary disease exacerbation, hematuria, history of chronic anticoagulation, coronary artery disease, hypertension, hyperlipidemia, tobacco abuse (he quit smoking a month ago), hep A, B and C, benign prostatic hyperplasia. CONSULTS: Cardiology and Pulmonary Medicine. PROCEDURES: None. HOSPITAL COURSE: The patient is a pleasant elderly male who presented with COPD exacerbation. He was admitted. We gave him IV steroids, breathing treatments, oxygen, antibiotics and consulted Pulmonary Medicine. He also had some chest pain yesterday, so I consulted Cardiology. They felt like the chest pain was probably atypical and recommended continuing his current therapy and would like to consider an outpatient ischemic workup. Clinically, he is doing better. Today, I saw and examined him. His heart tones are little better. His lungs are clear. He has no more chest pain. He wants to go home. Dr. Salgado is okay with him going home. We plan to discharge with close outpatient followup. DISPOSITION: Home. ACTIVITY: As tolerated. DIET: Low sodium. DISCHARGE MEDICATIONS: 1. Medrol Dosepak. 2. Doxycycline 100 p.o. b.i.d. 3. Combivent metered dose inhaler. 4. P.r.n. albuterol rescue inhaler. 5. Eliquis 5 b.i.d. 6. Atorvastatin 80 a day. 7. Symbicort 160/4.5 one puff b.i.d. 8. Plavix 75 a day. 9. Flonase. 10. Lisinopril 5 a day. 11. P.r.n. nitro. 12. Protonix 40 a day. TOTAL TIME: [address]: LURDES/barbra TID: [id number]
--- NOTE | 2021-02-14 12:01 | NUR ---
This nurse was in talking to patient about his discharge today when he went to move his bedside table and immediately started appearing anxious/short of breath. Monitor at bedside reading pulse rates between 164-178. Patient denied chest pain. Medication orders checked and FRAME CATCHER Katty Sandoval was on the floor at the time, this nurse informed her of patients elevated HR. She looked at the monitor for review and stated to give the patient a one time dose of 5mg metoprolol now. Order placed and given to patient which put his HR back down to his normal SR. Dr Cid notified and stated to hold patients discharge today for further cardiac eval. Will continue to monitor. Tele monitor being read by Charge Nurse Carlota.
[2021-02-14 15:00] VITALS: BP 93/54
[2021-02-14] MEDS: cefTRIAXone IV Push 1 GM VIAL. IVP SCH (17:28)
[2021-02-14 19:00] VITALS: BP 110/56
[2021-02-14] MEDS ORDERED: ATORVASTATIN CALCIUM 20 MG TABLET PO SCH (21:00)
[2021-02-14] MEDS: SENNOSIDES 8.6 MG TABLET PO SCH (21:39)
[2021-02-14 22:57] VITALS: BP 103/59
[2021-02-15 03:00] VITALS: BP 106/62
[2021-02-15 07:00] VITALS: BP 109/69
[2021-02-15] MEDS: methylPREDNISolone SOD SUCC PF 40 MG/ML VIAL. IV SCH (07:57)
[2021-02-15] MEDS: LISINOPRIL 5 MG TABLET. PO SCH (07:58)
[2021-02-15] MEDS: CLOPIDOGREL BISULFATE 75 MG TABLET PO SCH (07:58)
[2021-02-15] MEDS: DOXYCYCLINE HYCLATE 100 MG TABLET PO SCH (07:58)
[2021-02-15] MEDS: SENNOSIDES 8.6 MG TABLET PO SCH (07:59)
[2021-02-15] MEDS: APIXABAN 5 MG TABLET. PO SCH (07:59)
[2021-02-15] MEDS: IPRATROPIUM/ALBUTEROL 20/100mcg/INH INHALER. INH SCH ×2 (08:00→12:47)
--- NOTE | 2021-02-15 08:43 | PDOC ---
PULMONARY PROGRESS NOTES DATE: 02/15/21 TIME: 08:41 Subjective feels better Patient had some chest discomfort yesterday. Vitals Vital Signs Date Time Temp Pulse Resp B/P (MAP) Pulse Ox O2 Delivery O2 Flow Rate FiO2 02/15/21 08:06 Nasal Cannula 3.0 02/15/21 07:58 84 106/62 02/15/21 07:00 97.6 18 93 97.6 General: Alert, No acute distress Lungs: Clear Cardiovascular: S1 Abdomen: Soft Extremities: No Edema Labs Laboratory Tests Test 02/13/21 12:45 Troponin I High Sensitivity 6 ng/L (4-75) Triglycerides Level 54 mg/dL (0-150) Cholesterol Level 155 mg/dL (0-200) LDL Cholesterol, Calculated 90 mg/dL (0-100) VLDL Cholesterol, Calculated 11 mg/dL (0-40) Non-HDL Cholesterol Calculated 101 mg/dL (0-129) HDL Cholesterol 54 mg/dL (40-60) Cholesterol/HDL Ratio 2.9 Medications Active Scripts Medications Dose Route/Sig Max Daily Dose Days Date Category Duoneb 0.5-3(2.5) Mg/3 Ml (Albuterol/Ipratropium) 3 Ml Ampul.neb 3 Ml NEB Q4HRS 30 01/15/21 Rx Eliquis (Apixaban) 5 Mg Tablet 5 Mg PO BID 30 01/15/21 Rx Prednisone 50 Mg Tablet 1 Tab PO DAILY 01/15/21 Rx Lisinopril 5 Mg Tablet 0.5 Tab PO QHS 01/15/21 Rx Atorvastatin Calcium 80 Mg Tablet 80 Mg PO QHS 30 01/15/21 Rx Proair Hfa Inhaler (Albuterol Sulfate) 8.5 Gm Hfa.aer.ad 1 Puff INH PRN Q6HRS PRN 30 01/15/21 Rx Clopidogrel (Clopidogrel Bisulfate) 75 Mg Tablet 75 Mg PO DAILY 02/29/20 Reported NITROGLYCERIN SubLingual (Nitroglycerin) 0.4 Mg Tab.subl 0.4 Mg SL PRN Q5MIN PRN 01/06/20 Reported Flonase Allergy Relief (Fluticasone Propionate) 9.9 Ml [place].susp 2 Sprays NS DAILY 01/06/20 Reported Protonix (Pantoprazole Sodium) 20 Mg Tablet.dr 40 Mg PO DAILY 01/06/20 Reported Lisinopril 5 Mg Tablet 1 Tab PO DAILY 01/06/20 Reported Symbicort 160-4.5 Mcg Inhaler (Budesonide/Formoterol Fumarate) 10.2 Gm Hfa.aer.ad 1 Puff IH BID 11/27/17 Reported Impression . 1. Dyspnea secondary to acute exacerbation of chronic obstructive pulmonary disease, triggered by acute bronchitis. improved 2. The patient with underlying severe emphysema, which is oxygen dependent at 3 liters on a 24-hour basis. 3. Chest pain. No evidence of pulmonary embolism. CT angiogram was reviewed. Cardiology is following 4. History of lung cancer, status post radiation treatment in right lower lobe with postop treatment changes on the CT. Plan . 1. Continue present oxygen. His baseline level is 3 liters. 2. Change to p.o. steroids 3. Empiric antibiotic. 4. Eliquis and Plavix per Cardiology. 5. The patient is status post 1 dose of Pfizer vaccine for COVID. I have instructed him to receive the second dose post-discharge. 6. COVID-19. Clinical suspicion is low. 7. ok to co home from a pulmonary standpoint. JESUS HARRY MD Feb 15, 2021 08:43
[2021-02-15] MEDS ORDERED: predniSONE 10 MG TABLET PO SCH (09:00)
[2021-02-15 11:00] VITALS: BP 99/58
--- NOTE | 2021-02-15 11:58 | PDOC ---
[employer] PROGRESS NOTE Date of Service DOS: DATE: 02/15/21 TIME: 11:56 Chief Complaint Chief Complaint COPD exacerbation Tachycardia Chronic anticoagulation Clinical pneumonia Chest pain History of the following: CAD HTN Hyperlipidemia Cancer Hep A/B/C Osteoarthritis Benign prostatic enlarg History of Present Illness History of Present Illness 02/16/2020 Patient seen and examined We had to hold his discharge yesterday as he developed tachycardia and some chest discomfort Clinically is doing well this morning Discussed with RN Chart reviewed 02/14/2021 Patient seen and examined He is having a little bit of hematuria this morning Pulmonary seymour he is doing better Chart reviewed Discussed with RN Discussed with case management Pulmonary is okay with discharge so I will let him go I left a prescription for a appointment at urology if it can be arranged also he is considering going to [facility] 02/13/2021 Patient seen and examined Seems to be in mild distress On O2 per nasal cannula at 4 L Satting in the low 90s States he quit smoking a month ago He is complaining of some chest discomfort He is on oxygen I ordered some IV steroids I also consulted cardiology Discussed with RN Discussed with case management Vitals/I&O Vitals/I&O: Vital Signs Date Time Temp Pulse Resp B/P (MAP) Pulse Ox O2 Delivery O2 Flow Rate FiO2 02/15/21 08:06 Nasal Cannula 3.0 02/15/21 07:58 84 106/62 02/15/21 07:00 97.6 18 93 97.6 I & O 02/14/21 02/14/21 02/15/21 15:00 23:00 07:00 Output Total 500 ml 600 ml Balance -500 ml -600 ml Physical Exam General: Alert, Oriented X3, Cooperative, No acute distress Heart: Regular rate (SR), Normal S1, Normal S2, No murmurs Lungs: Clear Abdomen: Soft, No tenderness Extremities: No cyanosis, No edema Skin: No breakdown, No significant lesion Assessment and Plan Assessmemt and Plan Problems Medical Problems: (1) Acute on chronic respiratory failure with hypoxia Status: Acute (2) COPD exacerbation Status: Acute (3) Dyspnea on exertion Status: Acute COPD exacerbation Tachycardia Chronic anticoagulation Clinical pneumonia Chest pain History of the following: CAD HTN Hyperlipidemia Cancer Hep A/B/C Osteoarthritis Benign prostatic enlarg Plan Plan Hope to re- discharge this afternoon and follow-up with urology to evaluate his hematuria if does not develop tachycardia again? For now continue the following: Cardiology pulmonary follow IV steroids PUI O2 per nasal cannula IV antibiotics Home meds DVT prophylaxis Full code Long-term prognosis guarded if he does not continue to quit smoking Discharge again this afternoon if remains stable cardiac seymour Appreciate subspecialist input Comment Review of Relevant I have reviewed the following items luis (where applicable) has been applied. Medications: Current Medications Medications (Trade) Dose Ordered Sig/Royal Route PRN Reason Start Time Stop Time Status Last Admin Dose Admin Atorvastatin Calcium (Lipitor) 20 mg QHS PO 02/14/21 21:00 02/14/21 21:39 Sennosides (Senna) 8.6 mg BID PO 02/14/21 21:00 02/15/21 07:59 Justifications for Admission Other Justification MARILYN JOSÉ III DO Feb 15, 2021 11:58
--- NOTE | 2021-02-15 14:01 | PDOC ---
CRYSTAL HARVEY TRAVELING ENGINEER 02/15/21 1401: CARDIO Progress Notes Date and Time Date of Service 02/15/21 Time of Evaluation 1350 Subjective Subjective: No shortness of breath, No Palpitations, Other (episode of chest tightness this morning with standing ) Vitals Vitals Vital Signs Date Time Temp Pulse Resp B/P (MAP) Pulse Ox O2 Delivery O2 Flow Rate FiO2 02/15/21 11:00 97.5 89 18 99/58 (72) 96 Nasal Cannula 4.0 97.5 Weight Weight [ ] Input and Output Intake and Output Intake and Output 02/15/21 07:00 Output Total 1100 ml Balance -1100 ml Output Urine Total 1100 ml Microbiology Micro Microbiology 02/12/21 Blood Culture - Preliminary, Resulted NO GROWTH AFTER 2 DAYS Physical Exam HEENT: Neck Supple W Full Motion Chest: Symmetric LUNGS: Clear to Auscultation Heart: S1S2, RRR (SR) Abdomen: Soft N/T Extremities: No Edema, No Calf Tenderness Neurology: alert, oriented, follow commands Assessment Assessment 1. Atypical chest pain; AMI ruled out. 2. Acute on chronic respiratory failure with AECOPD 3. PAFIB/flutter: brief episode of 2:1 flutter with RVR yesterday afternoon. Otherwise, maintaining SR 4. NSCLCA: Stage 2 squamous cell, treted with radiation 5. CAD; BMS to proximal LAD and OM on 05/03/2019, clinically stable 6. Recent TAA endovascular repair: done prior to PCI 7. HLP; statin 8. Hematuria: resolved. outpatient urology referral Recommendations Secondary prevention Add low dose metoprolol for rate control Will stop lisinopril to allow for addition of metoprolol with low end BP Eliquis for stroke prophylaxis Outpatient event monitor to guide therapy Ongoing pulmonary optimization Outpt ischemic evaluation as arranged Follow up in our office with Dr. Larry as scheduled Justicifation of Admission Dx: Justifications for Admission: Justification of Admission Dx: Yes Respiratory Failure: Severe Resp Distress BERTRAND LARRY MD 02/15/21 1646: CARDIO Progress Notes Assessment Assessment Patient seen and examined. Agree with CHARTER BUS DRIVER's assessment and plan. Chest pain with atypical features Recent 2D echo showed normal LV function without any wall motion abnormalities PAF, presently sinus rhythm but telemetry showed an episode of atrial flutter with RVR. Continue Eliquis for stroke prophylaxis Continue current treatment for acute COPD exacerbation Plan for event monitor and ischemic evaluation as an outpatient CRYSTAL HARVEY APRN Feb 15, 2021 14:01 BERTRAND LARRY MD Feb 15, 2021 16:46
[2021-02-15] MEDS ORDERED: METO25TA4 PO (14:42)
--- NOTE | 2021-02-15 15:23 | NUR ---
Discharge Note: ANTONI LINDER Discharge instructions and discharge home medications reviewed with Patient and a copy given. All questions have been answered and understanding verbalized. The following instructions and handouts were given: follow up instructions, medication education Discontinued lines and drains: 20 guage right FA, tip intact. patient tolerated well. Patient discharged to home with self care via self.
[2021-02-15] MEDS ORDERED: METOPROLOL TART IMMED RELEASE 25 MG TABLET. PO SCH (21:00)
[2021-02-15] MEDS ORDERED: ATORVASTATIN CALCIUM 40 MG TABLET. PO SCH (21:00)
[2021-02-15] MEDS ORDERED: LACTOBACILLUS RHAMNOSUS GG 1 CAPSULE. PO SCH (21:00)
== END 2021-02-15 15:56 | disposition home or self-care (01) | DRG 193 ==
LOC: ER 11:16 → 5 NORTH 13:30
PROVIDERS: ADMIT Internal Medicine; ATTEND Internal Medicine
DX: J18.9 Pneumonia, unspecified organism (principal); J96.21 Acute and chronic respiratory failure with hypoxia; R65.10 Systemic inflammatory response syndrome (SIRS) of non-infectious origin without acute organ dysfunction; J98.11 Atelectasis; I48.92 Unspecified atrial flutter; B15.9 Hepatitis A without hepatic coma; M19.90 Unspecified osteoarthritis, unspecified site; N40.0 Benign prostatic hyperplasia without lower urinary tract symptoms; J98.4 Other disorders of lung; J43.9 Emphysema, unspecified; J20.9 Acute bronchitis, unspecified; E78.00 Pure hypercholesterolemia, unspecified; R31.9 Hematuria, unspecified; I10 Essential (primary) hypertension; R07.89 Other chest pain; I25.10 Atherosclerotic heart disease of native coronary artery without angina pectoris; E78.5 Hyperlipidemia, unspecified; I48.0 Paroxysmal atrial fibrillation; Z20.822 Contact with and (suspected) exposure to COVID-19; Z99.81 Dependence on supplemental oxygen; Z92.3 Personal history of irradiation; Z87.891 Personal history of nicotine dependence; Z85.118 Personal history of other malignant neoplasm of bronchus and lung; Z79.01 Long term (current) use of anticoagulants; Z86.16 Personal history of COVID-19; Z95.5 Presence of coronary angioplasty implant and graft
CPT/HCPCS: 36415; 71045; 71275; 80053; 80061; 82553; 83880; 84484; 85025; 87040; 87426; 93005; 94640; J0696; J2920; J3490; U0003; U0005; 99285-25; G0378

== ENCOUNTER → 2021-02-23 | Outpatient (CLI) | payer OTHER, MEDICAID ==
[2021-02-15 11:00] VITALS: BP 99/58
[~2021-02-23] MED LIST changes: +METO25TA4 PO; +REGADENOSON 0.4 MG/5 ML DISP.SYRIN. IV ONE
--- NOTE | 2021-02-23 19:17 | RAD ---
MR#: [id number] Date of Study: 02/23/2021 Ordering Physician: BERTRAND CHOWDARY, Referring Physician: BRIANNA SERRANO Tech: RT [facility] (R) (N) APPROVED REPORT Test Type: Pharmacological Stress Nurse/Tech: Kevyn Mata RN Test Indications: CAD Cardiac History: asthma, COPD, 2 stents 2020, HTN, x-smoker Medications: See Electronic Medical Record Medical History: See Electronic Medical Record Resting ECG: SR Resting Heart Rate: 82 bpm Resting Blood Pressure: 122/64mmHg Pretest Chest Pain: None Nurse/Tech Notes Lungs CTA, S1S2 Consent: The procedure was explained to the patient in lay terms. Informed consent was witnessed. Haseeb eout was entered into [employer]. History and Stress Test performed by RT North (R) (N) Pharm. Details Pharmacologic stress testing was performed using 0.4mg per 5ml of regadenoson given intravenously ove r 7-10 seconds. Stress Symptoms No chest pain or symptoms. POST EXERCISE Reason for Termination: Infusion complete Max HR: 128 bpm Max Blood Pressure: 115/67mmHg Blood Pressure response to exercise: Normal blood pressure response during stress. Heart Rate response to exercise: normal response Chest Pain: No. Arrhythmia: No. ST Change: No. INTERPRETATION Stress EKG Conclusion: No evidence of stress-induced EKG changes Imaging Protocol IMAGE PROTOCOL: Rest Tc-99m/stress Tc-99m 1 day Rest: Stress: Viability: Radiopharm.Tc99m KnprqrdqmEc98c Sestamibi Dose10.7mCi 30mCi Duration 13min. 13min. Img Date 02/23/2021 02/23/2021 Inj-Img [id number]. 60min. Rest Admin Site:IV - Right AntecubitalAdministrator:RT North (R)(N) Stress Admin Site: IV - Right AntecubitalAdministrator: BRIANNA McmullenTCSara, ARRT (R)(N) STRESS DATA End Diast. Vol.62.0mlLVEDV index BSA35.0ml End Syst. Vol.18.0mlLVESV index BSA10.0ml Myocardial Vitk207.0gEject. Pyxuobqc76.0% Stress Scores Regional WT0.00Summed WT0.00 Regional WM0.00Summed WM6.00 LV Perfusion There is a small sized inferoseptal fixed defect suggestive of prior infarct without active ischemia. Wall Motion Normal LV function, EF greater than 60% LV Perf. Quant 17 Seg. SSS4.00 17 Seg. SRS2.00 17 Seg. SDS2.00 Stress Defect Extent (% LAD)2.50Rest Defect Extent (% LAD)0.00Rev. Defect Extent (% LAD)0.00 Stress Defect Extent (% LCX) 0.00Rest Defect Extent (% LCX)0.00Rev. Defect Extent (% LCX)0.00 Stress Defect Extent (% RCA)12.20Rest Defect Extent (% RCA)18.90Rev. Defect Extent (% RCA)0.00 Stress Defect Extent (% SWATHI)5.90Rest Defect Extent (% SWATHI)5.70Rev. Defect Extent (% SWATHI)0.00 Other Information Quality:Fair Risk Assessment: Low Risk Conclusion 1. No evidence of stress-induced EKG changes 2. There is a small sized fixed inferoseptal and apical defect suggestive of prior infarct without ac tive ischemia 3. Normal LV systolic function, EF greater than 60% 4. Low to moderate risk study Signed by : Rey Marcelo, Electronically Approved : 02/23/2021 19:16:52
== END ==
LOC: NM 08:29
PROVIDERS: ATTEND Internal Medicine Cardiovascular Disease
DX: I25.10 Atherosclerotic heart disease of native coronary artery without angina pectoris (principal)
CPT/HCPCS: 78452; 93017; A9500; J2785